=== PATIENT | male | born 1950 | race Caucasian/White ===

== ENCOUNTER → 2017-01-21 | Outpatient (CLI) | payer OTHER, MEDICARE ==
[~2017-01-21] MED LIST: ATOR10TA82 PO; ATV1 PO; PERP1TAB6 PO; PRLSR20 PO; ZYP20 PO
[2017-01-21 09:37] LABS: BASO % 0.8 %; BASO ABS # 0.05 K/uL (0-0.2); COMPLETE YES; EOS % 4.3 %; HEMATOCRIT 42.5 % (42-52); IG% 0.2 %; LYMPH % 28.3 %; LYMPH ABS # 1.84 K/uL (1.2-3.4); MEAN CORPUSCULAR HEMOGLOBIN 30.2 pg (25-34); MEAN CORPUSCULAR HGB CONC 33.2 g/dl (32-36); MEAN PLATELET VOLUME 10.2 fL (7.4-10.4); MONO % 7.4 %; PLATELET COUNT 151 K/uL (130-400); RED BLOOD COUNT 4.67 M/uL (4.7-6.1)
[2017-01-21 10:12] LABS: CALCIUM 9.2 mg/dl (8.5-10.1)
[2017-01-21 10:16] LABS: ESTIMATED AVERAGE GLUCOSE 117 mg/dl; HA1C FLAG Normal (Normal)
[2017-01-21 10:19] LABS: ALT/SGPT 22 U/L (12-78); BLOOD UREA NITROGEN 11 mg/dl (7-18); BUN/CREATININE RATIO 11.9 (10-20); CARBON DIOXIDE 27 mmol/L (21-32); CHLORIDE 108 mmol/L (98-107); CHOLESTEROL 139 mg/dl (0-200); CREATININE 0.91 mg/dl (0.60-1.40); GLUCOSE 98 mg/dl (70-99); POTASSIUM 4.1 mmol/L (3.5-5.1); SODIUM 143 mmol/L (136-145); TRIGLYCERIDES 154 mg/dl (0-150); VERY LOW DENSITY LIPOPROT CALC 31 mg/dl
[2017-01-21 10:29] LABS: ALB/GLOB RATIO 1.3 (0.9-2); ALKALINE PHOSPHATASE 57 U/L (45-117); AST/SGOT 12 U/L (15-37); CHOLESTEROL/HDL RATIO 3.9; HDL CHOLESTEROL 36 mg/dl; LDL CHOLESTEROL CALCULATED 72 mg/dl; THYROID STIMULATING HORMONE 0.916 uIu/ml (0.300-4.500)
== END | disposition home or self-care (01) ==
LOC: C.LAB 08:53
PROVIDERS: ATTEND Internal Medicine
DX: E78.00 Pure hypercholesterolemia, unspecified (principal); F20.0 Paranoid schizophrenia; E55.9 Vitamin D deficiency, unspecified; R73.09 Other abnormal glucose

== ENCOUNTER → 2017-06-13 | Outpatient (CLI) | payer OTHER, MEDICARE ==
[~2017-06-13] MED LIST changes: -ATOR10TA82 PO; +ATOR10TA88 PO
[2017-06-13 09:59] LABS: CHOLESTEROL/HDL RATIO 4.1
[2017-06-13 10:12] LABS: ESTIMATED AVERAGE GLUCOSE 117 mg/dl; HA1C FLAG Normal (Normal)
== END | disposition home or self-care (01) ==
LOC: C.LAB 08:29
PROVIDERS: ATTEND Psychiatry & Neurology Psychiatry
DX: Z51.81 Encounter for therapeutic drug level monitoring (principal); Z79.899 Other long term (current) drug therapy

== ENCOUNTER → 2017-08-19 | Outpatient (CLI) | payer OTHER, MEDICARE ==
[~2017-08-19] MED LIST changes: +ATOR10TA82 PO; -ATOR10TA88 PO
[2017-08-19 10:24] LABS: ALB/GLOB RATIO 1.1 (0.9-2); ALKALINE PHOSPHATASE 63 U/L (45-117); ALT/SGPT 24 U/L (12-78); AST/SGOT 13 U/L (15-37); BLOOD UREA NITROGEN 9 mg/dl (7-18); CALCIUM 9.3 mg/dl (8.5-10.1); CARBON DIOXIDE 29 mmol/L (21-32); CHLORIDE 105 mmol/L (98-107); CREATININE 0.85 mg/dl (0.60-1.40); GLUCOSE 95 mg/dl (70-99); POTASSIUM 4.1 mmol/L (3.5-5.1); SODIUM 137 mmol/L (136-145)
== END | disposition home or self-care (01) ==
LOC: C.LAB 08:19
PROVIDERS: ATTEND Nurse Practitioner
DX: Z12.5 Encounter for screening for malignant neoplasm of prostate (principal); E78.00 Pure hypercholesterolemia, unspecified

== ENCOUNTER → 2018-04-25 | Day surgery (SDC) | payer OTHER, MEDICARE ==
[2018-04-18 13:05] VITALS: Ht 170.2 cm; Wt 95.5 kg
[~2018-04-25] VITALS: Ht 170.2 cm; Wt 95.5 kg
[~2018-04-25] MED LIST changes: +ATOR-22 PO; -ATOR10TA82 PO; +ATV/1 PO; -ATV1 PO; +CHOL20009 PO; +LIDOCAINE HCL 2% 2 ML VIAL (20MG/ML) ONE; +LORA-741 PO; +OLAN1TAB64 PO; -PRLSR20 PO; +PROPOFOL IV EMULSION 10 MG/ML 20 ML VIAL ONE; +SODIUM CHLORIDE 0.9% 500ML 500 ML IV ONE; -ZYP20 PO
--- NOTE | 2018-04-25 09:54 | Endo History and Physical ---
History & Physical Date of Service: Apr 25, 2018. Chief Complaint: F/U polyps Referring Physician: Dr Yanes History of Present Illness 67 yo CM who presents for colonoscopy secondary to colon polyps. Past Surgical History Hx Cardiac Surgery: No Hx Internal Defibrillator: No Hx Pacemaker: No Hx Abdominal Surgery: No Hx of Implantable Prosthesis: No Hx Post-Op Nausea and Vomiting: No Hx Cancer Surgery: No Hx Thoracic Surgery: No Hx Orthopedic: No Hx Urinary Tract Surgery: No Family History Colon CA, Esophogeal CA Social History Smoking Status: Former Smoker Hx Substance Use: No Hx Alcohol Use: No (QUIT 20 YRS AGO) Allergies Coded Allergies: Aspirin (Verified Allergy, Mild, OTHER-HX ULCER, 04/25/18) Current Medications Reported Home Medications Medications Dose Route/Sig Max Daily Dose Days Date Category Vitamin D (Cholecalciferol) 2,000 Unit Tab 1 Tab PO DAILY 04/18/18 Reported Ativan (Lorazepam) 1 Mg Tab 1 Mg PO HS 04/18/18 Reported Lipitor (Atorvastatin Calcium) 20 Mg Tab 20 Mg PO HS 04/18/18 Reported Zyprexa (Olanzapine) 15 Mg Tab 15 Mg PO BID 04/18/18 Reported Ativan (Lorazepam) 0.5 Mg Tab 0.5 Mg PO QAM 04/18/18 Reported Trilafon (Perphenazine) 8 Mg Tab 2 Tablets PO EVERY PM 05/18/12 Reported Trilafon (Perphenazine) 8 Mg Tab 1 Tab PO EVERY AM 05/18/12 Reported Vital Signs Weight (Kilograms): 95.45 Height (Feet): 5 Height (Inches): 7 Date Time Temp Pulse Resp B/P (MAP) Pulse Ox O2 Delivery O2 Flow Rate FiO2 04/25/18 09:13 36.5 68 18 125/70 (88) 98 Room Air Physical Exam General Appearance: WD/WN, no apparent distress Respiratory/Chest: Auscultation: breath sounds normal Cardiovascular: Heart Auscultation: RRR Abdomen: Bowel Sounds: normal Inspection & Palpation: soft, non-distended, no tenderness, guarding & rebound Assessment and Plan Assessment: 67 yo CM who presents for colonoscopy secondary to colon polyps. Plan: Proceed with colonoscopy.
--- NOTE | 2018-04-25 10:42 | GI REPORT ---
Patient Name: Chung Pereira Procedure Date: 04/25/2018 9:45 AM Date of : 1950 Admit Type: Outpatient Age: 67 Gender: Male Attending MD: Dayo Mack DO Procedure: Colonoscopy Providers: Dayo Mack DO Referring MD: Byron Yanes Indications: High risk colon cancer surveillance: Personal history of colonic polyps Medicines: Monitored Anesthesia Care Complications: No immediate complications. Estimated Blood Loss: Estimated blood loss: none. Procedure: Pre-Anesthesia Assessment: - Prior to the procedure, a History and Physical was performed, and patient medications and allergies were reviewed. The patient's tolerance of previous anesthesia was also reviewed. The risks and benefits of the procedure and the sedation options and risks were discussed with the patient. All questions were answered, and informed consent was obtained. Prior Anticoagulants: The patient has taken aspirin, last dose was 1 day prior to procedure. ASA Grade Assessment: II - A patient with mild systemic disease. After reviewing the risks and benefits, the patient was deemed in satisfactory condition to undergo the procedure. After I obtained informed consent, the scope was passed under direct vision. Throughout the procedure, the patient's blood pressure, pulse, and oxygen saturations were monitored continuously. The scope was introduced through the anus and advanced to the terminal ileum. The colonoscopy was performed without difficulty. The patient tolerated the procedure well. The quality of the bowel preparation was good. The terminal ileum, ileocecal valve, appendiceal orifice, and rectum were photographed. Findings: The perianal and digital rectal examinations were normal. Two sessile polyps were found in the sigmoid colon and descending colon. The polyps were 5 to 8 mm in size. These polyps were removed with a hot snare. Resection and retrieval were complete. Multiple small-mouthed diverticula were found in the sigmoid colon. Non-bleeding internal hemorrhoids were found during retroflexion. The hemorrhoids were small. Impression: - Two 5 to 8 mm polyps in the sigmoid colon and in the descending colon, removed with a hot snare. Resected and retrieved. - Diverticulosis in the sigmoid colon. - Non-bleeding internal hemorrhoids. Recommendation: - Resume previous diet. - Continue present medications. - Repeat colonoscopy for surveillance based on pathology results. - Return to primary care physician as previously scheduled. Dayo Mack DO 04/25/2018 10:42:25 AM This report has been signed electronically. Note Initiated On: 04/25/2018 9:45 AM Number of Addenda: 0 I attest to the content of the Intraoperative Record and orders documented therein, exceptions below {[id number]}
--- NOTE | 2018-04-25 10:43 | Discharge Instructions ---
Endoscopy Patient Instructions Date / Procedure(s) Performed Apr 25, 2018. Colonoscopy Allergy Information Coded Allergies: Aspirin (Verified Allergy, Mild, OTHER-HX ULCER, 04/25/18) Discharge Date / Findings Apr 25, 2018. Colon polyps Diverticulosis Internal hemorrhoids Medication Instructions OK to resume all medications today as prescribed Reported Home Medications Medications Dose Route/Sig Max Daily Dose Days Date Category Vitamin D (Cholecalciferol) 2,000 Unit Tab 1 Tab PO DAILY 04/18/18 Reported Ativan (Lorazepam) 1 Mg Tab 1 Mg PO HS 04/18/18 Reported Lipitor (Atorvastatin Calcium) 20 Mg Tab 20 Mg PO HS 04/18/18 Reported Zyprexa (Olanzapine) 15 Mg Tab 15 Mg PO BID 04/18/18 Reported Ativan (Lorazepam) 0.5 Mg Tab 0.5 Mg PO QAM 04/18/18 Reported Trilafon (Perphenazine) 8 Mg Tab 2 Tablets PO EVERY PM 05/18/12 Reported Trilafon (Perphenazine) 8 Mg Tab 1 Tab PO EVERY AM 05/18/12 Reported Provider Instructions Activity Restrictions - No exercising or heavy lifting for 24 hours. - Do not drink alcohol the day of the procedure. - Do not drive a car or operate machinery until the day after the procedure. - Do not make any important decisions or sign important papers in 24 hours after the procedure. Following Day: - Return to full activity which may include returning to work/school. Diet Start your diet with liquids and light foods (jello, soup, juice, toast). Then eat your usual diet if not nauseated. Treatment For Common After Affects For mild abdominal pain, bloating, or excessive gas: - Rest - Eat lightly - Lie on right side Follow-Up Information Follow-up with Dr Yanes as scheduled Anesthesia Information What You Should Know You have had a procedure that required some medicine to reduce anxiety and discomfort. This treatment is called moderate sedation. After receiving the treatment, you may be sleepy, but you will be able to breathe on your own. The effects of the treatment may last for several hours. Follow these instructions along with Activity/Diet recommendations noted above: * Do NOT do anything where dizziness or clumsiness would be dangerous. * Rest quietly at home today, then you can be up and about tomorrow. * Have a responsible person stay with you the rest of today. * You may have had an I.V. today. If so, you may take the dressing off later today. Recommendations Call your doctor if: * Trouble breathing * Continuous vomiting for more than 24 hours * Temperature above 101 degrees * Severe abdominal pain or bloating * Pain not relieved by pain medicine ordered * There is increased drainage or redness from any incision * A large amount of rectal bleeding greater than 2-3 tablespoons. (If you had a polyp/s removed or have hemorrhoids, a small amount of blood - from the rectum is to be expected.) * You have any unanswered questions or concerns. IN THE EVENT OF A SERIOUS EMERGENCY, GO TO THE NEAREST EMERGENCY ROOM Your discharge instructions were prepared by provider Dayo Mack. Patient Instructions Signature Page Chung Pereira Patient (or Guardian) Signature/Date: I have read and understand the instructions given to me by my caregivers. Caregiver/RN/Doctor Signature/Date: The above-named patient and/or guardian has received patient instructions on this date. + Original Patient Signature Page (only) stays with chart. Please make copy for patient.
--- NOTE | 2018-04-25 11:04 | Anesthesiology Progress Note ---
Anesthesia Post Op Note Date & Time Apr 25, 2018 at 11:04 Vital Signs Pain Intensity: 0 Vital Signs Past 12 Hours Date Time Temp Pulse Resp B/P (MAP) Pulse Ox O2 Delivery O2 Flow Rate FiO2 04/25/18 10:51 64 18 150/85 (106) 96 Room Air 04/25/18 10:36 70 18 118/71 (87) 98 Room Air 04/25/18 09:13 36.5 68 18 125/70 (88) 98 Room Air Notes Mental Status: alert / awake / arousable, participated in evaluation Pt Amnestic to Procedure: Yes Nausea / Vomiting: adequately controlled Pain: adequately controlled Airway Patency, RR, SpO2: stable & adequate BP & HR: stable & adequate Hydration State: stable & adequate Anesthetic Complications: no major complications apparent
[2018-04-25 11:06] VITALS: BP 153/73; PULSE 54; O2SAT 96
== END | disposition home or self-care (01) ==
LOC: C.GI 08:28
PROVIDERS: ATTEND Internal Medicine
DX: Z12.11 Encounter for screening for malignant neoplasm of colon (principal); D12.5 Benign neoplasm of sigmoid colon; D12.4 Benign neoplasm of descending colon; Z86.010 Personal history of colon polyps; K57.30 Diverticulosis of large intestine without perforation or abscess without bleeding; K64.8 Other hemorrhoids; F20.9 Schizophrenia, unspecified; E66.9 Obesity, unspecified; Z68.33 Body mass index [BMI] 33.0-33.9, adult; Z88.6 Allergy status to analgesic agent; Z87.891 Personal history of nicotine dependence; Z80.0 Family history of malignant neoplasm of digestive organs

== ENCOUNTER 2019-04-20 16:31 | Inpatient (IN) ==
--- NOTE | 2019-04-20 17:05 | Emergency Department Note ---
History of Present Illness General Chief complaint: Abdominal Pain Stated complaint: RUQ PAIN X 2 DAYS, FEVER 102.3 Time Seen by Provider: 04/20/19 16:40 History of Present Illness Maximum Pain Intensity: 7 68-year-old male who presents to emergency department with a 2-day complaint of right upper quadrant and rib pain. The patient reports that he did have vomiting x1 this morning. He reports that the pain is worse when laying on his right side and with movement. 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 He denies any recent injury to his ribs. He denies chest pain, shortness of breath or pain radiating to the back, neck or shoulder. The patient reports that he did have a small amount of bright red blood in his stools, but also reports a history of hemorrhoids. Patient does have a prior history of peptic ulcer disease possibly 10 years ago. He denies taking any medications for reflux. The patient was seen at the [facility] urgent care center, where he was found to have a fever, and referred to the emergency department for further evaluation. The patient denies any other recent upper respiratory infections, chest pain or reflux. Home Medications Home Medications Medication Instructions Recorded Confirmed Type atorvastatin 20 mg PO QPM 10/16/18 04/20/19 History lorazepam 0.5 mg PO QAM 10/16/18 04/20/19 History lorazepam 1 mg PO HS 10/16/18 04/20/19 History olanzapine 15 mg PO BID 10/16/18 04/20/19 History perphenazine 8 mg PO QAM 10/16/18 04/20/19 History perphenazine 16 mg PO QPM 10/16/18 04/20/19 History aspirin 81 mg tablet,delayed 81 mg PO DAILY tab 02/02/19 04/20/19 History release cholecalciferol (vitamin D3) 2,300 unit PO DAILY 04/20/19 04/20/19 History Allergies Allergy/AdvReac Type Severity Reaction Status Date / Time aspirin AdvReac Mild OTHER-HX Verified 04/20/19 19:12 ULCER Past Med/Surg History Family History Other No pertinent family history Social History Preferred Language: Cuban Communication Ability: Effective 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 Beliefs That Will Affect Care: Yarsanism marital status: Single Current Living Situation: Significant Other Current Living Situation Comment: [facility] current occupational status: employed Other Information That Helps Us Care for You: No Feels Safe at Home: Yes Safety Concerns: Feels Safe At This Time Smoking Status: Former smoker Hx Alcohol Use: Yes (stopped in approx 1999) Hx Substance Use: No Review of Systems 10 system review was performed and was negative except for pertinent positives and negatives as indicated in history of present illness Physical Exam Vital Signs Vital Signs - 24 hr 04/20/19 16:37 04/20/19 17:17 04/20/19 17:18 Temperature 36.8 C Temperature Source Oral Sepsis Recent Fever Within 48 Hours No Sepsis Action Taken by Nursing No Action Required Pulse Rate 87 Pulse Rate [Left Finger] 85 Pulse Rate from SpO2 Sensor Respiratory Rate 18 20 Respiratory Effort / Characteristics Non-Labored Respiratory Depth Normal Normal Respiratory Pattern Regular Blood Pressure 133/70 Blood Pressure [Left Arm] 153/81 H Blood Pressure Mean 91 Blood Pressure Mean [Left Arm] 105 Pulse Oximetry 95 94 93 Oxygen Delivery Method Room Air Room Air Room Air 04/20/19 17:43 04/20/19 18:00 04/20/19 18:30 Temperature Temperature Source Sepsis Recent Fever Within 48 Hours Sepsis Action Taken by Nursing Pulse Rate 85 86 86 Pulse Rate [Left Finger] Pulse Rate from SpO2 Sensor 85 86 86 Respiratory Rate 22 27 H 23 Respiratory Effort / Characteristics Respiratory Depth Respiratory Pattern Blood Pressure 152/89 H 162/75 H Blood Pressure [Left Arm] Blood Pressure Mean 110 104 Blood Pressure Mean [Left Arm] Pulse Oximetry 92 92 94 Oxygen Delivery Method 04/20/19 18:36 04/20/19 19:00 04/20/19 19:30 Temperature Temperature Source Sepsis Recent Fever Within 48 Hours Sepsis Action Taken by Nursing Pulse Rate 85 87 Pulse Rate [Left Finger] 87 Pulse Rate from SpO2 Sensor 85 Respiratory Rate 20 29 H 23 Respiratory Effort / Characteristics Non-Labored Respiratory Depth Normal Respiratory Pattern Regular Blood Pressure 147/77 H 148/76 H Blood Pressure [Left Arm] 162/75 H Blood Pressure Mean 100 100 Blood Pressure Mean [Left Arm] 104 Pulse Oximetry 93 92 Oxygen Delivery Method Room Air CONSTITUTIONAL: Obese male, alert and oriented X 3. She does not appear in any acute distress. HEENT: Normocephalic, atraumatic. Pupils equal, round and reactive. No scleral icterus or conjunctival injection/pallor. No posterior pharyngeal erythema or tonsillar hypertrophy. NECK: Full active range of motion without discomfort. LYMPHATICS: No cervical chain adenopathy. RESPIRATORY: Clear to auscultation bilaterally with no wheezing, crackles, rhonchi or stridor. Deep breathing does not worsen the patient's discomfort. CARDIOVASCULAR: Regular rate and rhythm with no murmurs, rubs or gallops. GASTROINTESTINAL: Bowel sounds present in all quadrants. Patient has mild right upper quadrant tenderness to palpation without rigidity, guarding or rebound. No focal left lower quadrant tenderness or McBurney's point tenderness. Negative CVA tenderness. MUSCULOSKELETAL: Examination shows mild tenderness to palpation over the right inferolateral and anterolateral ribs. No ecchymosis or soft tissue edema noted. No subcutaneous emphysema or flail chest. INTEGUMENTARY: No rash or other significant dermatologic conditions noted. HEMATOLOGIC: No ecchymosis or petechiae. PSYCHIATRIC: Positive affect. NEUROLOGIC: No focal neurologic deficits noted. Course Patient history and physical exam were performed. Nurse's notes were reviewed. Vital signs were reviewed. The patient is currently afebrile. I also reviewed documentation from the [facility] urgent care center where the patient was seen at 3:10 PM, and temperature was 100.1 F, and pulse rate was 96. IV access was established, and labs were drawn. ECG and troponin were normal. Right rib x-rays with a PA chest view does not show any rib fractures, consolidations, pneumothorax or cardiomegaly. CT of the abdomen and pelvis with IV contrast shows evidence for probable gangrenous cholecystitis with no common bile duct dilatation or evidence for choledocholithiasis. I did order for Zosyn 4.5 g IV infusion. The case was further discussed with Dr. Allison, ED attending physician, who evaluated the patient and agrees with surgical consultation. Consultation was placed with Dr. Lynch, general surgeon, who came to the emergency department, evaluated the patient and recommended hospitalist admission for presurgical clearance. I did further discuss the case with Dr. Szymanski, [facility] hospitalist, who recommended drawing a [id number] lactate to make certain that the patient is not septic. Point of care lactate was normal. Administered Medications Sodium Chloride (Nss 1000ml) 1,000 mls @ 125 mls/hr IV .Q8H TAWANA Stop: 05/20/19 20:34 Last Admin: 04/20/19 20:42 Dose: 125 mls/hr Documented by: [id number] Famotidine 20 mg/ Syringe 5 mls @ 2.5 mls/min IV BID TAWANA Stop: 05/20/19 20:59 Last Admin: 04/20/19 22:28 Dose: 2.5 mls/min Documented by: [id number] Olanzapine (Zyprexa) 15 mg PO BID TAWANA Stop: 05/20/19 20:59 Last Admin: 04/20/19 22:29 Dose: 15 mg Documented by: [id number] Ondansetron HCl (Zofran) 4 mg IV Q6H PRN PRN Reason: Nausea Stop: 05/20/19 20:34 Last Admin: 04/20/19 22:39 Dose: 4 mg Documented by: [id number] Perphenazine (Trilafon) 16 mg PO QPM TAWANA Stop: 05/20/19 20:59 Last Admin: 04/20/19 22:30 Dose: 16 mg Documented by: [id number] Discontinued Medications Piperacillin Sod/Tazobactam Sod (Zosyn) 4.5 gm in 120 mls @ 240 mls/hr IV NOW ONE Stop: 04/20/19 19:36 Last Infusion: 04/20/19 20:36 Dose: 0 mls/hr Documented by: [id number] Admin: 04/20/19 19:49 Dose: 240 mls/hr Documented by: [id number] Ioversol (Optiray 320 100ml) 93 ml IV ONCE PRN PRN Reason: Interaction Checking Stop: 04/24/19 18:15 Last Admin: 04/20/19 18:16 Dose: 93 ml Documented by: [id number] Medical Decision Making Medical Records Attestation: I reviewed the patient's medical records. Home Medications Current Medication List: was personally reviewed by me Laboratory Data Attestation: I reviewed the patient's lab results. Result diagrams: 04/20/19 17:02 04/20/19 17:02 Lab Results 04/20/19 04/20/19 04/20/19 Range/Units 17:02 17:02 17:02 WBC 17.17 H (4.8-10.8) K/uL RBC 4.41 L (4.7-6.1) M/uL Hgb 13.9 L (14.0-18.0) g/dL Hct 40.4 L (42-52) % MCV 91.6 (80-100) fL MCH 31.5 (25-34) pg MCHC 34.4 (32-36) g/dL RDW Std Deviation 43.2 (36.4-46.3) fL RDW Coeff of Larissa 12.8 (11.5-14.5) % Plt Count 140 (130-400) K/uL MPV 10.3 (7.4-10.4) fL Immature Gran % (Auto) 0.3 % Neut % (Auto) 80.6 % Lymph % (Auto) 8.8 % [place] % (Auto) 10.1 % Eos % (Auto) 0.1 % Baso % (Auto) 0.1 % Immature Gran # (Auto) 0.06 H (0.00-0.02) K/uL Neut # (Auto) 13.84 H (1.4-6.5) K/uL Lymph # (Auto) 1.51 (1.2-3.4) K/uL [place] # (Auto) 1.73 H (0.11-0.59) K/uL Eos # (Auto) 0.01 (0-0.5) K/uL Baso # (Auto) 0.02 (0-0.2) K/uL ESR 44 H (0-14) mm/hr Sodium 136 (136-145) mmol/L Potassium 3.6 (3.5-5.1) mmol/L Chloride 101 (98-107) mmol/L Carbon Dioxide 29 (21-32) mmol/L Anion Gap 6.0 (3-11) BUN 14 (7-18) mg/dl Creatinine 1.08 (0.6-1.4) mg/dl Est Cr Clr Drug Dosing Not Reportable Est GFR ( Amer) 80.7 Est GFR (Non-Af Amer) 69.7 BUN/Creatinine Ratio 12.9 (10-20) Glucose 108 H (70-99) mg/dl POC Lactic Acid Jani (0.90-1.70) mmol/L Calcium 8.9 (8.5-10.1) mg/dl Total Bilirubin 1.1 H (0.2-1) mg/dl AST 25 (15-37) U/L ALT 21 (12-78) U/L Alkaline Phosphatase 48 (45-117) U/L Troponin I < 0.015 (0-0.045) ng/ml C-Reactive Protein 20.90 H (0-0.29) mg/dl Total Protein 7.4 (6.4-8.2) gm/dl Albumin 3.8 (3.4-5.0) gm/dl Globulin 3.6 (2.5-4.0) gm/dl Albumin/Globulin Ratio 1.1 (0.9-2) Lipase 77 (73-393) U/L Hepatitis C Ab Screen (Neg) 04/20/19 04/20/19 Range/Units 17:02 19:36 WBC (4.8-10.8) K/uL RBC (4.7-6.1) M/uL Hgb (14.0-18.0) g/dL Hct (42-52) % MCV (80-100) fL MCH (25-34) pg MCHC (32-36) g/dL RDW Std Deviation (36.4-46.3) fL RDW Coeff of Larissa (11.5-14.5) % Plt Count (130-400) K/uL MPV (7.4-10.4) fL Immature Gran % (Auto) % Neut % (Auto) % Lymph % (Auto) % [place] % (Auto) % Eos % (Auto) % Baso % (Auto) % Immature Gran # (Auto) (0.00-0.02) K/uL Neut # (Auto) (1.4-6.5) K/uL Lymph # (Auto) (1.2-3.4) K/uL [place] # (Auto) (0.11-0.59) K/uL Eos # (Auto) (0-0.5) K/uL Baso # (Auto) (0-0.2) K/uL ESR (0-14) mm/hr Sodium (136-145) mmol/L Potassium (3.5-5.1) mmol/L Chloride (98-107) mmol/L Carbon Dioxide (21-32) mmol/L Anion Gap (3-11) BUN (7-18) mg/dl Creatinine (0.6-1.4) mg/dl Est Cr Clr Drug Dosing Est GFR ( Amer) Est GFR (Non-Af Amer) BUN/Creatinine Ratio (10-20) Glucose (70-99) mg/dl POC Lactic Acid Jani 1.08 (0.90-1.70) mmol/L Calcium (8.5-10.1) mg/dl Total Bilirubin (0.2-1) mg/dl AST (15-37) U/L ALT (12-78) U/L Alkaline Phosphatase (45-117) U/L Troponin I (0-0.045) ng/ml C-Reactive Protein (0-0.29) mg/dl Total Protein (6.4-8.2) gm/dl Albumin (3.4-5.0) gm/dl Globulin (2.5-4.0) gm/dl Albumin/Globulin Ratio (0.9-2) Lipase (73-393) U/L Hepatitis C Ab Screen Neg (Neg) Imaging Data Attestation: I personally reviewed and interpreted this imaging study as follows: My Impression: My interpretation of right rib x-rays with a PA chest view does not show any obvious rib fractures, dependent edema, pneumothorax or cardiomegaly. Gallbladder ultrasound shows evidence for a gangrenous cholecystitis. Radiologist reports were reviewed. Radiologist's Impression: ABDOMEN AND PELVIS CT WITH IV CONTRAST CT DOSE: 1907.96 mGy.cm HISTORY: Generalized abdominal pain with right-sided rib pain Abd pain/R rib pain TECHNIQUE: Multiaxial CT images of the abdomen and pelvis were performed following the use of intravenous contrast. A dose lowering technique was utilized adhering to the principles of ALARA. COMPARISON STUDY: Chest radiograph with rib series of same day. FINDINGS: Minimal subsegmental bibasilar atelectasis. No pneumatosis or pneumo peritoneum. Imaged inferior cardiac chambers are mildly enlarged. Coronary arterial calcifications are noted. Spleen, liver and adrenal glands are unremarkable. There is an ovoid circumscribed water attenuating 1.3 cm lesion noted about the pancreatic head, image 149 series 5. Mild gallbladder distention with cholelithiasis. Foci of air noted within the gallbladder lumen with associated gallbladder wall thickening. No biliary ductal dilation or choledocholithiasis identified. Inflammatory stranding with trace edema noted about the sin hepatis. Calculi noted about the cystic duct. Mild nonspecific bilateral perinephric stranding. Exophytic 4.0 cm cyst of the inferior pole right kidney. No renal or ureteral calculi or obstructive uropathy. Prominent prostate. Mild urinary bladder wall thickening and perivesicular stranding. Moderate calcified plaque of the abdominal aorta without aneurysm. No adenopathy. Small hiatal hernia. Circumferential wall thickening about the gastric antrum, pylorus and proximal duodenum with mucosal hyperemia. Inflammatory stranding with trace edema. Mildly prominent periportal lymph nodes. Mild colonic ecchymosis without acute diverticulitis. Soft tissues are unremarkable. Bones appear intact. Degenerative changes of the spine, pelvis and hips. IMPRESSION: 1. Cholelithiasis with gallbladder wall distention and stones noted within the cystic duct. Pericholecystic inflammatory stranding is also noted with foci of air within the gallbladder lumen. Findings are suggestive of gangrenous acute cholecystitis. Surgical consultation recommended. 2. Wall thickening with mucosal hyperemia of the distal stomach and duodenum is likely reactive. Primary duodenitis/peptic ulcer disease considered less likely. 3. No choledocholithiasis. 4. Additional findings as above. ECG Data Attestation: I personally reviewed and interpreted this ECG as follows: Indication: abdominal pain Rhythm: normal sinus Comparison ECG Date: from (10/16/2018) Change: no significant change Blood Pressure Blood Pressure Findings: Elevated blood pressure MDM Narrative Patient presents to the emergency department with a 2-day history of right upper quadrant pain. CT scan does show evidence for gangrenous cholecystitis. The patient was febrile at the [facility] urgent care [facility], but has been afebrile while in the emergency department. The patient is not hypotensive or tachycardic. Chest x-ray does not show evidence for lung consolidations, and or rib fractures. ECG and troponin were normal, and is not suggestive of other acute cardiopulmonary etiologies. Impression & Plan Acute gangrenous cholecystitis Discharge Plan Visit Data *Final* Discharge Date/Time: 04/20/19 20:05 Chief Complaint: Abdominal Pain Stated Complaint: RUQ PAIN X 2 DAYS, FEVER 102.3 ED Provider: Marciano Allison ED Midlevel Provider: Mele Finney Discharge Problem: Acute gangrenous cholecystitis Patient Disposition: Admitted As Inpatient Discharge Instructions Interventions: ED Discharge Assessment Last Done: 04/20/19 20:05
[2019-04-20 17:34] LABS: Alanine Aminotransferase 21 U/L (12-78); Albumin Level 3.8 gm/dl (3.4-5.0); Aspartate Aminotransferase 25 U/L (15-37); BUN Creatinine Ratio 12.9 (10-20); Blood Urea Nitrogen 14 mg/dl (7-18); Calcium 8.9 mg/dl (8.5-10.1); Carbon Dioxide 29 mmol/L (21-32); Chloride 101 mmol/L (98-107); Est GFR (African American) 80.7; Est GFR (Non-African American) 69.7; Glucose 108 mg/dl (70-99); Potassium 3.6 mmol/L (3.5-5.1); Sodium 136 mmol/L (136-145)
[2019-04-20 17:40] LABS: Albumin Globulin Ratio 1.1 (0.9-2); Alkaline Phosphatase 48 U/L (45-117); Bilirubin,Total 1.1 mg/dl (0.2-1); Globulin 3.6 gm/dl (2.5-4.0); Total Protein 7.4 gm/dl (6.4-8.2); Troponin I < 0.015 ng/ml (0-0.045)
[2019-04-20 17:44] LABS: Basophils # (auto) 0.02 K/uL (0-0.2); Basophils % (auto) 0.1 %; Eosinophils # (auto) 0.01 K/uL (0-0.5); Eosinophils % (auto) 0.1 %; Hematocrit (blood only) 40.4 % (42-52); Hemoglobin 13.9 g/dL (14.0-18.0); Immature Granulocytes # (auto) 0.06 K/uL (0.00-0.02); Immature Granulocytes % (auto) 0.3 %; Lymphocytes # (auto) 1.51 K/uL (1.2-3.4); Lymphocytes % (auto) 8.8 %; Mean Corpuscular Hgb Conc 34.4 g/dL (32-36); Mean Corpuscular Volume 91.6 fL (80-100); Mean Platelet Volume 10.3 fL (7.4-10.4); Monocytes # (auto) 1.73 K/uL (0.11-0.59); Monocytes % (auto) 10.1 %; Neutrophils # (auto) 13.84 K/uL (1.4-6.5); Neutrophils % (auto) 80.6 %; Platelet Count 140 K/uL (130-400); RDW Coefficient of Variation 12.8 % (11.5-14.5); RDW Standard Deviation 43.2 fL (36.4-46.3); Red Blood Count 4.41 M/uL (4.7-6.1); White Blood Count 17.17 K/uL (4.8-10.8)
--- NOTE | 2019-04-20 17:53 | XRay Report ---
XR ribs RT min 3V w CXR1V HISTORY: 68 years-old Male R rib pain lateral right sided rib pain COMPARISON: Chest radiograph 10/16/2018 TECHNIQUE: PA view of the chest with multiple views of the right ribs FINDINGS: Cardiac silhouette is enlarged, unchanged. Calcification of the thoracic aortic arch. Unchanged mild right hemidiaphragm elevation without pneumothorax, pleural effusion or overt pulmonary edema. Degene rative changes of the shoulders and spine. No acute displaced rib fracture identified. Moderate forme d stool noted throughout the imaged colon. IMPRESSION: 1. No acute processes of the chest. 2. No acute rib fracture or pneumothorax identified. The above report was generated using voice recognition software. It may contain grammatical, syntax o r spelling errors. Electronically signed by: Siddhartha Sanchez M.D. 04/20/2019 5:52 PM
[2019-04-20] MEDS ORDERED: IOVERSOL 100ml IV PRN (18:16)
--- NOTE | 2019-04-20 19:00 | CT Scan Report ---
ABDOMEN AND PELVIS CT WITH IV CONTRAST CT DOSE: 1907.96 mGy.cm HISTORY: Generalized abdominal pain with right-sided rib pain Abd pain/R rib pain TECHNIQUE: Multiaxial CT images of the abdomen and pelvis were performed following the use of intrave nous contrast. A dose lowering technique was utilized adhering to the principles of ALARA. COMPARISON STUDY: Chest radiograph with rib series of same day. FINDINGS: Minimal subsegmental bibasilar atelectasis. No pneumatosis or pneumoperitoneum. Imaged infe rior cardiac chambers are mildly enlarged. Coronary arterial calcifications are noted. Spleen, liver and adrenal glands are unremarkable. There is an ovoid circumscribed water attenuating 1.3 cm lesion noted about the pancreatic head, image 149 series 5. Mild gallbladder distention with cholelithiasis. Foci of air noted within the gallbladder lumen with associated gallbladder wall thickening. No bilia ry ductal dilation or choledocholithiasis identified. Inflammatory stranding with trace edema noted a bout the sin hepatis. Calculi noted about the cystic duct. Mild nonspecific bilateral perinephric stranding. Exophytic 4.0 cm cyst of the inferior pole right ki dney. No renal or ureteral calculi or obstructive uropathy. Prominent prostate. Mild urinary bladder wall thickening and perivesicular stranding. Moderate calcified plaque of the abdominal aorta without aneurysm. No adenopathy. Small hiatal hernia. Circumferential wall thickening about the gastric antr um, pylorus and proximal duodenum with mucosal hyperemia. Inflammatory stranding with trace edema. Mi ldly prominent periportal lymph nodes. Mild colonic ecchymosis without acute diverticulitis. Soft tis sues are unremarkable. Bones appear intact. Degenerative changes of the spine, pelvis and hips. IMPRESSION: 1. Cholelithiasis with gallbladder wall distention and stones noted within the cystic duct. Perichole cystic inflammatory stranding is also noted with foci of air within the gallbladder lumen. Findings a re suggestive of gangrenous acute cholecystitis. Surgical consultation recommended. 2. Wall thickening with mucosal hyperemia of the distal stomach and duodenum is likely reactive. Prim diana duodenitis/peptic ulcer disease considered less likely. 3. No choledocholithiasis. 4. Additional findings as above. Electronically signed by: Siddhartha Sanchez M.D. 04/20/2019 6:59 PM
[2019-04-20] MEDS ORDERED: PIPERACILLIN/TAZOBACTAM 4.5 GM/120 ML BAG IV ONE (19:07)
[2019-04-20] MEDS ORDERED: PIPERACILL/TAZOBAC CONSULT ACTIVE PRN ×2 (19:07→20:35)
--- NOTE | 2019-04-20 19:09 | Emergency Department Note ---
ED Visit Note Patient was seen by our PA/FIBRE COMPOSITE TECHNICIAN. I was involved in the patient's care and did evaluate the patient myself. I was involved in the care throughout the ER stay. The patient presents with abdominal pain. Work-up does suggest acute cholecystitis, in fact, possibly gangrenous cholecystitis. Patient does have an elevation to his white blood cell count. His blood pressure is adequate. The surgeon and medical team have been consulted. Hospitalization is warranted. .
--- NOTE | 2019-04-20 19:42 | Surgery Consultation ---
Date of Consultation April 20, 2019 Assessment & Plan (1) Acute gangrenous cholecystitis: 68-year-old male with acute gangrenous cholecystitis. Admit to medicine Plan for laparoscopic cholecystectomy, possible cholangiogram, possible open tomorrow The risks of the procedure were discussed to include but not limited to bleeding, infection, conversion to open, damage to surrounding structures including common bile duct, retained stone, bile leak, need for future more extensive surgery, and the risks of anesthesia N.p.o., IV antibiotics, IV fluid Present on Admission?: Yes (2) Carotid artery stenosis: (3) Gastroesophageal reflux disease: (4) Hypercholesterolemia: (5) Paranoid schizophrenia: History of Present Illness History of Present Illness 68-year-old male presents to the emergency department with several day history of right upper quadrant abdominal pain. He was seen in urgent care today and had a low-grade fever and was referred to the emergency department. He has an elevated white blood cell count of 17,[address] scan that suggests cholecystitis with possible gangrenous cholecystitis. He reports a history of a gastric ulcer in the past secondary to aspirin use. He has a history of well- controlled paranoid schizophrenia and is not on any blood thinning medications at this time. Allergies Allergy/AdvReac Type Severity Reaction Status Date / Time aspirin AdvReac Mild OTHER-HX Verified 04/20/19 19:12 [facility] Home Medications Home Medications Medication Instructions Recorded Confirmed Type atorvastatin 20 mg PO QPM 10/16/18 04/20/19 History lorazepam 0.5 mg PO QAM 10/16/18 04/20/19 History lorazepam 1 mg PO HS 10/16/18 04/20/19 History olanzapine 15 mg PO BID 10/16/18 04/20/19 History perphenazine 8 mg PO QAM 10/16/18 04/20/19 History perphenazine 16 mg PO QPM 10/16/18 04/20/19 History aspirin 81 mg tablet,delayed 81 mg PO DAILY tab 02/02/19 04/20/19 History release cholecalciferol (vitamin D3) 2,300 unit PO DAILY 04/20/19 04/20/19 History Patient History Medical History Abnormal glucose (Acute) Achilles tendon sprain (Acute) Benign neoplasm of large intestine (Acute) Carotid artery stenosis (Acute) Gastroesophageal reflux disease (Acute) Hypercholesterolemia (Acute) Paranoid schizophrenia (Acute) Vitamin D deficiency (Acute) Neck abscess (Acute) Heart murmur (Acute) HLD (hyperlipidemia) (Chronic) Family History Other No pertinent family history Social History marital status: Single Current Living Situation: Alone current occupational status: employed Feels Safe at Home: Yes Smoking Status: Never smoker Review of Systems Review of Systems: All systems reviewed & are unremarkable except as noted in HPI & below Physical Exam Constitutional: WD/WN, vitals as above Eyes: PERRL, conjunctivae normal, anicteric sclerae ENMT: external ear and nose normal, oropharynx normal Neck: trachea midline, no thyromegaly Respiratory: normal respiratory effort, lungs clear to auscultation Cardiovascular: RRR, no murmur, no edema Gastrointestinal (Abdomen): Percussion/Palpation: + abdomen tender (Tender to palpation in right upper quadrant, positive Teixeira sign) and abdomen soft; no hepatosplenomegaly, no hernia and no abdominal mass Musculoskeletal: no cyanosis or clubbing, extremities motor strength 5/5 Skin: no rashes, warm and dry Neurologic: PERRL, EOMI, accommodation nl, no face palsy, no dysarthria Psychiatric: A+Ox3, euthymic affect Lymphatic: no cervical or axillary lymphadenopathy Results & Data Vital Signs (Past 12 Hours) Vital Signs Temp Pulse Pulse Resp BP BP Pulse Ox 04/20/19 18:36 87 20 162/75 H 93 04/20/19 17:18 85 20 153/81 H 93 04/20/19 17:17 94 04/20/19 16:37 36.8 C 87 18 133/70 95 Laboratory Results Laboratory Results - last 24 hr 04/20/19 04/20/19 04/20/19 17:02 17:02 17:02 WBC 17.17 H RBC 4.41 L Hgb 13.9 L Hct 40.4 L MCV 91.6 MCH 31.5 MCHC 34.4 RDW Std Deviation 43.2 RDW Coeff of Larissa 12.8 Plt Count 140 MPV 10.3 Immature Gran % (Auto) 0.3 Neut % (Auto) 80.6 Lymph % (Auto) 8.8 Throckmorton % (Auto) 10.1 Eos % (Auto) 0.1 Baso % (Auto) 0.1 Immature Gran # (Auto) 0.06 H Neut # (Auto) 13.84 H Lymph # (Auto) 1.51 Throckmorton # (Auto) 1.73 H Eos # (Auto) 0.01 Baso # (Auto) 0.02 ESR 44 H Sodium 136 Potassium 3.6 Chloride 101 Carbon Dioxide 29 Anion Gap 6.0 BUN 14 Creatinine 1.08 Est Cr Clr Drug Dosing Not Reportable Est GFR ( Amer) 80.7 Est GFR (Non-Af Amer) 69.7 BUN/Creatinine Ratio 12.9 Glucose 108 H Calcium 8.9 Total Bilirubin 1.1 H AST 25 ALT 21 Alkaline Phosphatase 48 Troponin I < 0.015 C-Reactive Protein 20.90 H Total Protein 7.4 Albumin 3.8 Globulin 3.6 Albumin/Globulin Ratio 1.1 Lipase 77 Diagnostic Findings ABDOMEN AND PELVIS CT WITH IV CONTRAST CT DOSE: 1907.96 mGy.cm HISTORY: Generalized abdominal pain with right-sided rib pain Abd pain/R rib pain TECHNIQUE: Multiaxial CT images of the abdomen and pelvis were performed following the use of intravenous contrast. A dose lowering technique was utilized adhering to the principles of ALARA. COMPARISON STUDY: Chest radiograph with rib series of same day. FINDINGS: Minimal subsegmental bibasilar atelectasis. No pneumatosis or pneumoperitoneum. Imaged inferior cardiac chambers are mildly enlarged. Coronary arterial calcifications are noted. Spleen, liver and adrenal glands are unremarkable. There is an ovoid circumscribed water attenuating 1.3 cm lesion noted about the pancreatic head, image 149 series 5. Mild gallbladder distention with cholelithiasis. Foci of air noted within the gallbladder lumen with associated gallbladder wall thickening. No biliary ductal dilation or choledocholithiasis identified. Inflammatory stranding with trace edema noted about the sin hepatis. Calculi noted about the cystic duct. Mild nonspecific bilateral perinephric stranding. Exophytic 4.0 cm cyst of the inferior pole right kidney. No renal or ureteral calculi or obstructive uropathy. Prominent prostate. Mild urinary bladder wall thickening and perivesicular stranding. Moderate calcified plaque of the abdominal aorta without aneurysm. No adenopathy. Small hiatal hernia. Circumferential wall thickening about the gastric antrum, pylorus and proximal duodenum with mucosal hyperemia. Inflammatory stranding with trace edema. Mildly prominent periportal lymph nodes. Mild colonic ecchymosis without acute diverticulitis. Soft tissues are unremarkable. Bones appear intact. Degenerative changes of the spine, pelvis and hips. IMPRESSION: 1. Cholelithiasis with gallbladder wall distention and stones noted within the cystic duct. Pericholecystic inflammatory stranding is also noted with foci of air within the gallbladder lumen. Findings are suggestive of gangrenous acute cholecystitis. Surgical consultation recommended. 2. Wall thickening with mucosal hyperemia of the distal stomach and duodenum is likely reactive. Primary duodenitis/peptic ulcer disease considered less likely. 3. No choledocholithiasis. 4. Additional findings as above. PG Care Time/CCT Total # of Minutes Spent Total Time Spent with Patient: Total time spent is greater than 50% in coordination of care (as documented) at patient's floor/unit and/or counseling patient:
--- NOTE | 2019-04-20 19:46 | History & Physical Report ---
Date of Service April 20, 2019 Assessment & Plan (1) Acute gangrenous cholecystitis: Patient is what appears to be acute cholecystitis on CT imaging surgery has evaluated the patient in the ER and wishes to proceed with intravenous antibiotics and surgical intervention on 04/21. Patient be placed on Zosyn therapy pain antiemetics and IV fluids incidentally his lactic acid [id number] was unremarkable. Patient's EKG shows normal sinus rhythm he is an acceptable cardiac risk for interventional surgery (2) Abnormal glucose: Patient states he watches his diet but is on any medications to control his glucose perhaps his abnormal glucose is associated with his antipsychotic medications (3) Gastroesophageal reflux disease: Patient will be on intravenous Pepcid for his history of GERD (4) Paranoid schizophrenia: Patient schizophrenia is been challenging in the past to control he will continue on his olanzapine and perphenazine but his lorazepam will be changed to intravenous dosing (5) Hypercholesterolemia: Atorvastatin is typical for him and will be on hold as well as his aspirin History of Present Illness Primary Care Provider: Byron Yanes MD This 68-year-old paranoid schizophrenic male presents with 2 days of right upper quadrant pain he actually thought he injured his ribs. He is also had preceding hospital constipation and some mild nausea without vomiting. He is found to be febrile on presentation and CT scan confirms concern for gangrenous cholecystitis. He seen by surgical consultation in the emergency department who recommends intravenous antibiotics and possible taken to the OR on 04/21/2019 Patient was quizzed about his prehospital state before he was feeling ill he said no chest pain or pressure he has no dyspnea on exertion he can lay flat in bed he said no bleeding or bruising problems in the past he said no issues with anesthesia. Patient was concerned of his mental health medications as he feels his take a long time to get them adjusted where he needs him to be therefore we will give him his medications in the morning with a small sip of water preoperatively Allergies Allergy/AdvReac Type Severity Reaction Status Date / Time aspirin AdvReac Mild OTHER-HX Verified 04/20/19 19:12 [facility] Home Medications Home Medications Medication Instructions Recorded Confirmed Type atorvastatin 20 mg PO QPM 10/16/18 04/20/19 History lorazepam 0.5 mg PO QAM 10/16/18 04/20/19 History lorazepam 1 mg PO HS 10/16/18 04/20/19 History olanzapine 15 mg PO BID 10/16/18 04/20/19 History perphenazine 8 mg PO QAM 10/16/18 04/20/19 History perphenazine 16 mg PO QPM 10/16/18 04/20/19 History aspirin 81 mg tablet,delayed 81 mg PO DAILY tab 02/02/19 04/20/19 History release cholecalciferol (vitamin D3) 2,300 unit PO DAILY 04/20/19 04/20/19 History oxycodone-acetaminophen [Percocet] 1 - 2 tab PO Q4H PRN #15 tab 04/21/19 Rx Past Med/Surg History Medical History Abnormal glucose (Acute) Achilles tendon sprain (Acute) Benign neoplasm of large intestine (Acute) Carotid artery stenosis (Acute) Gastroesophageal reflux disease (Acute) Hypercholesterolemia (Acute) Paranoid schizophrenia (Acute) Vitamin D deficiency (Acute) Neck abscess (Acute) Heart murmur (Acute) HLD (hyperlipidemia) (Chronic) Family History Other No pertinent family history Social History Preferred Language: Portuguese Communication Ability: Effective [employer] Internship Required: No Beliefs That Will Affect Care: Syn[employer] marital status: Single Current Living Situation: Significant Other Current Living Situation Comment: [facility] current occupational status: employed Other Information That Helps Us Care for You: No Feels Safe at Home: Yes Safety Concerns: Feels Safe At This Time Smoking Status: Former smoker Hx Alcohol Use: Yes (stopped in approx 1999) Hx Substance Use: No Review of Systems Review of Systems: ROS: well nourished well developed. No double vision blurry vision No problems with speech or swallowing No palpitations or pressure, patient is right rib cage pain which is likely r adiation from his gallbladder No Wheezing or breathing issues Right upper quadrant abdominal pain associated with nausea but no vomiting constipation No burning urine urine frequency or changes in color No focal joint pain or muscle pain No skin rashes or oral lesions No unusual bruising or bleeding No focused back pain or numbness or loss of strength No changes in memory or confusion Physical Exam Physical Exam: The patient appeared well nourished and normally developed. Vital signs as documented. Head exam is unremarkable. normocephalic, atraumatic Neck is without jugular venous distension, thyromegaly, or lymphademopathy Lungs are clear to auscultation and percussion. Cardiac exam reveals Rhythm is regular. Her murmur is listed but I hear no murmur Abdominal exam reveals active bowel sounds right upper quadrant tenderness no guarding no rebound slight distention Extremities are nonedematous and both pedal pulses are present Neurologic exam is A&Ox3, no focal deficits, strength is equal bilateral Psychologically seems neither anxious or depressed Skin is warm Dry with seborrheic dermatitis on his face and his reddy Results & Data Vital Signs (Past 12 Hours) Vital Signs Temp Pulse Pulse Resp BP BP Pulse Ox 04/20/19 18:36 87 20 162/75 H 93 04/20/19 17:18 85 20 153/81 H 93 04/20/19 17:17 94 04/20/19 16:37 36.8 C 87 18 133/[address] abd/pelvis 1. Cholelithiasis with gallbladder wall distention and stones noted within the cystic duct. Pericholecystic inflammatory stranding is also noted with foci of air within the gallbladder lumen. Findings are suggestive of gangrenous acute cholecystitis. Surgical consultation recommended. 2. Wall thickening with mucosal hyperemia of the distal stomach and duodenum is likely reactive. Primary duodenitis/peptic ulcer disease considered less likely. 3. No choledocholithiasis PG Care Time/CCT Total # of Minutes Spent Total Time Spent with Patient: Total time spent is greater than 50% in coordination of care (as documented) at patient's floor/unit and/or counseling patient:
[2019-04-20] MEDS ORDERED: LORazepam 0.5 MG/1 ML VIAL IV PRN (20:35)
[2019-04-20] MEDS ORDERED: ONDANSETRON INJ 2 MG/ML 2 ML VIAL IV PRN (20:35)
[2019-04-20] MEDS ORDERED: MoRPHine SULFATE 4 MG/ML 1 ML CARP\\VIAL IV PRN (20:35)
[2019-04-20] MEDS ORDERED: MoRPHine SULFATE 2 MG/ML CARP IV PRN (20:35)
[2019-04-20] MEDS: SODIUM CHLORIDE 0.9% 1000ML 1,000 ML IV SCH (20:42)
[2019-04-20 21:57] LABS: Appearance Urine Clear (Clear); Bacteria Urine Automated Negative (Negative); Bilirubin Urine Negative (Negative); Blood Urine Negative (Negative); Color Urine Yellow; Glucose Urine UA Negative (Negative); Ketones Urine Trace (Negative); Leukocyte Esterase Urine Negative (Negative); Nitrite Urine Negative (Negative); Protein Urine 1+ (Negative); RBC Urine Automated 0-4 /hpf (0-4); Specific Gravity Urine > 1.045 (1.000-1.030); Urobilinogen Urine Negative (Negative)
[2019-04-20] MEDS: FAMOTIDINE 20 MG in SYRINGE 3 ML IV SCH (22:28)
[2019-04-20] MEDS: OLANZapine 5 MG TABLET PO SCH (22:29)
[2019-04-20] MEDS: PERPHENAZINE 2 MG TABLET PO SCH (22:30)
[2019-04-21] MEDS: PIPERACILLIN/TAZOBACTAM 4.5 GM in DEXTROSE 5% 100 ML IV SCH ×3 (02:51→18:11)
[2019-04-21] MEDS: SODIUM CHLORIDE 0.9% 1000ML 1,000 ML IV SCH ×2 (02:55→12:28)
--- NOTE | 2019-04-21 06:38 | Anesthesiology Consultation ---
Date of Service April 21, 2019 Assessment & Plan (1) Encounter for pre-operative examination: Chart Review Chart Review: Acceptable Risk for Surgery and Patient NOT seen in Pre Admission Testing Consults Requested none ASA ASA3 Proposed Anesthesia Anesthesia Type: General Risk / Benefits Reviewed With: PT / POA / Parent / Guardian, Accepts Plan and I nformed Consent Obtained History Surgery Operation Date: 04/21/19 10:30 Proposed Procedures p Laparoscopic Cholecystectomy - David Lynch DO, FACS Height/Weight Height: 5 ft 7 in Weight: 96.9 kg Allergies Allergy/AdvReac Type Severity Reaction Status Date / Time aspirin AdvReac Mild OTHER-HX Verified 04/20/19 19:12 [facility] Medications Home Medications Medication Instructions Recorded Confirmed Last Taken atorvastatin 20 mg PO QPM 10/16/18 04/20/19 Unknown lorazepam 0.5 mg PO QAM 10/16/18 04/20/19 Unknown lorazepam 1 mg PO HS 10/16/18 04/20/19 Unknown olanzapine 15 mg PO BID 10/16/18 04/20/19 Unknown perphenazine 8 mg PO QAM 10/16/18 04/20/19 Unknown perphenazine 16 mg PO QPM 10/16/18 04/20/19 Unknown aspirin 81 mg tablet,delayed 81 mg PO DAILY tab 02/02/19 04/20/19 Unknown release cholecalciferol (vitamin D3) 2,300 unit PO DAILY 04/20/19 04/20/19 Unknown oxycodone-acetaminophen [Percocet] 1 - 2 tab PO Q4H PRN #15 tab 04/21/19 Unknown Active Medications Generic Name Dose Route Start Last Admin Trade Name Freq PRN Reason Stop Dose Admin Sodium Chloride 1,000 mls @ 125 mls/hr 04/20/19 20:35 04/21/19 02:55 Nss 1000ml IV 05/20/19 20:34 125 mls/hr .Q8H TAWANA Administration Famotidine 20 mg/ Syringe 5 mls @ 2.5 mls/min 04/20/19 21:00 04/20/19 22:28 IV 05/20/19 20:59 2.5 mls/min BID TAWANA Administration Piperacillin Sod/Tazobactam 120 mls @ 30 mls/hr 04/21/19 02:00 04/21/19 06:51 Sod 4.5 gm/ Dextrose IV 05/01/19 01:59 Infused Q8H TAWANA Infusion Protocol Olanzapine 15 mg 04/20/19 21:00 04/21/19 07:56 Zyprexa PO 05/20/19 20:59 15 mg BID TAWANA Administration Ondansetron HCl 4 mg 04/20/19 20:35 04/20/19 22:39 Zofran IV 05/20/19 20:34 4 mg Q6H PRN Administration Nausea Perphenazine 8 mg 04/21/19 09:00 04/21/19 07:56 Trilafon PO 05/21/19 08:59 8 mg QAM TAWANA Administration Perphenazine 16 mg 04/20/19 21:00 04/20/19 22:30 Trilafon PO 05/20/19 20:59 16 mg QPM TAWANA Administration NPO Date Last Intake of Fluids: 04/21/19 Time Last Intake of Fluids: 00:00 Date Last Intake of Solids: 04/20/19 Time Last Intake of Solids: 20:00 Past Medical History Medical History Abnormal glucose (Acute) Achilles tendon sprain (Acute) Benign neoplasm of large intestine (Acute) Carotid artery stenosis (Acute) Gastroesophageal reflux disease (Acute) Hypercholesterolemia (Acute) Paranoid schizophrenia (Acute) Vitamin D deficiency (Acute) Neck abscess (Acute) Heart murmur (Acute) HLD (hyperlipidemia) (Chronic) Exercise / Class Metabolic Activity II 4-5 Yardwork/Stairs/Walk up hill Past Family History Family History Other No pertinent family history Past Anesthesia History No Hx of Anesthesia Complications and No Family Hx of Anesthesia Complications History of PONV No Hx of PONV and No Hx of Motion Sickness Social History Smoking Status: Former smoker Hx Alcohol Use: Yes (stopped in approx 1999) Hx Substance Use: No Physical Exam Vital Signs Last Vital Signs Temp 37.0 C 04/21/19 07:42 Pulse 84 04/21/19 07:42 Resp 16 04/21/19 07:42 BP 146/76 H 04/21/19 07:42 Pulse Ox 90 04/21/19 07:42 ENMT Mouth: + poor dentition Thyromental Distance: > or= 3.5 Finger Breadths Mallampati Class: III Neck normal visual inspection Respiratory normal respiratory effort Auscultation: lungs clear to auscultation bilaterally Cardiovascular Rate/Rhythm: regular rate and regular rhythm Psychiatric Orientation: alert Testing Laboratory Results 04/21/19 06:44 04/21/19 06:44 Urine Color Yellow 04/20/19 21:44 Urine Appearance Clear (Clear) 04/20/19 21:44 Urine pH 5.0 (4.5-7.5) 04/20/19 21:44 Ur Specific Dime Box > 1.045 (1.000-1.030) H 04/20/19 21:44 Urine Protein 1+ (Negative) H 04/20/19 21:44 Urine Glucose (UA) Negative (Negative) 04/20/19 21:44 Urine Ketones Trace (Negative) H 04/20/19 21:44 Urine Nitrite Negative (Negative) 04/20/19 21:44 Ur Leukocyte Esterase Negative (Negative) 04/20/19 21:44 Urine WBC (Auto) 1-5 /hpf (0-5) 04/20/19 21:44 Urine RBC (Auto) 0-4 /hpf (0-4) 04/20/19 21:44 U Hyaline Cast (Auto) 1-5 /lpf (0-5) 04/20/19 21:44 U Epithel Cells (Auto) 5-10 /lpf (0-5) H 04/20/19 21:44 Urine Bacteria (Auto) Negative (Negative) 04/20/19 21:44 Electrocardiogram Date: 04/20/19 Findings: + NSR @ (84) Normal ECG Chest X-Ray Date: 10/16/18 XR chest 1V portable CLINICAL HISTORY: Chest Pain COMPARISON STUDY: No previous studies for comparison. FINDINGS: No pneumothorax or pleural effusion is noted. There is no evidence for pulmonary edema. Apparent hazy left basilar opacity is likely artifactual. There is mild cardiomegaly. IMPRESSION: No acute cardiopulmonary findings.
[2019-04-21] MEDS ORDERED: ACETAMINOPHEN 1000 MG/100 ML IV IV ONE (06:51)
[2019-04-21 07:14] LABS: Hematocrit (blood only) 40.9 % (42-52); Hemoglobin 13.8 g/dL (14.0-18.0); Mean Corpuscular Hgb Conc 33.7 g/dL (32-36); Mean Corpuscular Volume 91.5 fL (80-100); Platelet Count 133 K/uL (130-400); RDW Coefficient of Variation 12.8 % (11.5-14.5); RDW Standard Deviation 43.2 fL (36.4-46.3); Red Blood Count 4.47 M/uL (4.7-6.1); White Blood Count 17.35 K/uL (4.8-10.8)
[2019-04-21 07:50] LABS: BUN Creatinine Ratio 12.4 (10-20); Calcium 8.5 mg/dl (8.5-10.1); Creatinine Clr Calc Pharmacy 81.4 ml/min; Est GFR (African American) 94.3; Est GFR (Non-African American) 81.3
[2019-04-21] MEDS ORDERED: ONDANSETRON INJ 2 MG/ML 2 ML VIAL ONE (07:52)
[2019-04-21] MEDS ORDERED: MIDAZOLAM HCL 1 MG/ML 2ML VIAL ONE (07:52)
[2019-04-21] MEDS ORDERED: PROPOFOL IV EMULSION 10 MG/ML 20 ML VIAL IV ONE (07:52)
[2019-04-21] MEDS ORDERED: LIDOCAINE HCL 2% 2 ML VIAL/AMP(20MG/ML) INFIL ONE (07:52)
[2019-04-21] MEDS ORDERED: fentaNYL citrate 100 MCG/2 ML VIAL ONE (07:52)
[2019-04-21] MEDS ORDERED: DEXAMETHASONE SOD INJ 4 MG/ML VIAL ONE (07:52)
[2019-04-21] MEDS: PERPHENAZINE 2 MG TABLET PO SCH ×2 (07:56→20:28)
[2019-04-21] MEDS: OLANZapine 5 MG TABLET PO SCH ×2 (07:56→20:27)
--- NOTE | 2019-04-21 08:59 | Surgery Progress Note ---
Date of Service April 21, 2019 Assessment & Plan (1) Acute gangrenous cholecystitis: 68-year-old male with acute gangrenous cholecystitis. Plan for laparoscopic cholecystectomy, possible cholangiogram, possible open today in the operating room The risks of the procedure were discussed to include but not limited to bleeding, infection, conversion to open, damage to surrounding structures including common bile duct, retained stone, bile leak, need for future or more extensive surgery, and the risks of anesthesia N.p.o., IV antibiotics, IV fluid (2) Carotid artery stenosis: (3) Gastroesophageal reflux disease: (4) Hypercholesterolemia: (5) Paranoid schizophrenia: Subjective 68-year-old male admitted with acute calculus cholecystitis and concern for gangrenous cholecystitis. He is doing well this morning, still some nausea but his pain is improving. No other changes. Physical Exam Constitutional: WD/WN, vitals as above Gastrointestinal (Abdomen): Percussion/Palpation: + abdomen tender (Tender to palpation in right upper quadrant, positive Teixeira sign) and abdomen soft; no hepatosplenomegaly, no hernia and no abdominal mass Results & Data Vital Signs (Past 12 Hours) Vital Signs Temp Pulse Resp BP Pulse Ox 04/21/19 07:42 37.0 C 84 16 146/76 H 90 04/20/19 22:53 37.0 C 78 18 136/77 92 Laboratory Results Laboratory Results - last 24 hr 04/20/19 04/20/19 04/20/19 17:02 17:02 17:02 WBC 17.17 H RBC 4.41 L Hgb 13.9 L Hct 40.4 L MCV 91.6 MCH 31.5 MCHC 34.4 RDW Std Deviation 43.2 RDW Coeff of Larissa 12.8 Plt Count 140 MPV 10.3 Immature Gran % (Auto) 0.3 Neut % (Auto) 80.6 Lymph % (Auto) 8.8 [place] % (Auto) 10.1 Eos % (Auto) 0.1 Baso % (Auto) 0.1 Immature Gran # (Auto) 0.06 H Neut # (Auto) 13.84 H Lymph # (Auto) 1.51 [place] # (Auto) 1.73 H Eos # (Auto) 0.01 Baso # (Auto) 0.02 ESR 44 H Sodium 136 Potassium 3.6 Chloride 101 Carbon Dioxide 29 Anion Gap 6.0 BUN 14 Creatinine 1.08 Est Cr Clr Drug Dosing Not Reportable Est GFR ( Amer) 80.7 Est GFR (Non-Af Amer) 69.7 BUN/Creatinine Ratio 12.9 Glucose 108 H POC Lactic Acid Jani Calcium 8.9 Total Bilirubin 1.1 H Direct Bilirubin AST 25 ALT 21 Alkaline Phosphatase 48 Troponin I < 0.015 C-Reactive Protein 20.90 H Total Protein 7.4 Albumin 3.8 Globulin 3.6 Albumin/Globulin Ratio 1.1 Lipase 77 Urine Color Urine Appearance Urine pH Ur Specific Conde Urine Protein Urine Glucose (UA) Urine Ketones Urine Blood Urine Nitrite Urine Bilirubin Urine Urobilinogen Ur Leukocyte Esterase Urine WBC (Auto) Urine RBC (Auto) U Hyaline Cast (Auto) U Epithel Cells (Auto) Urine Bacteria (Auto) Hepatitis C Ab Screen 04/20/19 04/20/19 04/20/19 17:02 19:36 21:44 WBC RBC Hgb Hct MCV MCH MCHC RDW Std Deviation RDW Coeff of Larissa Plt Count MPV Immature Gran % (Auto) Neut % (Auto) Lymph % (Auto) [place] % (Auto) Eos % (Auto) Baso % (Auto) Immature Gran # (Auto) Neut # (Auto) Lymph # (Auto) [place] # (Auto) Eos # (Auto) Baso # (Auto) ESR Sodium Potassium Chloride Carbon Dioxide Anion Gap BUN Creatinine Est Cr Clr Drug Dosing Est GFR ( Amer) Est GFR (Non-Af Amer) BUN/Creatinine Ratio Glucose POC Lactic Acid Jani 1.08 Calcium Total Bilirubin Direct Bilirubin AST ALT Alkaline Phosphatase Troponin I C-Reactive Protein Total Protein Albumin Globulin Albumin/Globulin Ratio Lipase Urine Color Yellow Urine Appearance Clear Urine pH 5.0 Ur Specific Conde > 1.045 H Urine Protein 1+ H Urine Glucose (UA) Negative Urine Ketones Trace H Urine Blood Negative Urine Nitrite Negative Urine Bilirubin Negative Urine Urobilinogen Negative Ur Leukocyte Esterase Negative Urine WBC (Auto) 1-5 Urine RBC (Auto) 0-4 U Hyaline Cast (Auto) 1-5 U Epithel Cells (Auto) 5-10 H Urine Bacteria (Auto) Negative Hepatitis C Ab Screen Neg 04/21/19 04/21/19 04/21/19 06:44 06:44 07:55 WBC 17.35 H RBC 4.47 L Hgb 13.8 L Hct 40.9 L MCV 91.5 MCH 30.9 MCHC 33.7 RDW Std Deviation 43.2 RDW Coeff of Larissa 12.8 Plt Count 133 MPV 10.0 Immature Gran % (Auto) Neut % (Auto) Lymph % (Auto) [place] % (Auto) Eos % (Auto) Baso % (Auto) Immature Gran # (Auto) Neut # (Auto) Lymph # (Auto) [place] # (Auto) Eos # (Auto) Baso # (Auto) ESR Sodium 138 Potassium Chloride 105 Carbon Dioxide 26 Anion Gap 7.0 BUN 12 Creatinine 0.95 Est Cr Clr Drug Dosing 81.4 Est GFR ( Amer) 94.3 Est GFR (Non-Af Amer) 81.3 BUN/Creatinine Ratio 12.4 Glucose 115 H POC Lactic Acid Jani Calcium 8.5 Total Bilirubin Direct Bilirubin 0.3 H AST ALT Alkaline Phosphatase Troponin I C-Reactive Protein Total Protein Albumin Globulin Albumin/Globulin Ratio Lipase Urine Color Urine Appearance Urine pH Ur Specific Conde Urine Protein Urine Glucose (UA) Urine Ketones Urine Blood Urine Nitrite Urine Bilirubin Urine Urobilinogen Ur Leukocyte Esterase Urine WBC (Auto) Urine RBC (Auto) U Hyaline Cast (Auto) U Epithel Cells (Auto) Urine Bacteria (Auto) Hepatitis C Ab Screen PG Care Time/CCT Total # of Minutes Spent Total Time Spent with Patient: Total time spent is greater than 50% in coordination of care (as documented) at patient's floor/unit and/or counseling patient:
[2019-04-21] MEDS ORDERED: BUPIVACAINE 0.5 % 5 MG/1 ML MPF 30ML VIAL ONE (09:25)
[2019-04-21] MEDS ORDERED: CONRAY 60% 50 ML VIAL ONE (09:25)
[2019-04-21] MEDS ORDERED: HYDROmorphone INJ 1 MG/ML SYRINGE IV PRN (09:26)
[2019-04-21] MEDS ORDERED: ONDANSETRON INJ 2 MG/ML 2 ML VIAL IV PRN (09:26)
[2019-04-21] MEDS ORDERED: ATROPINE SULFATE 0.1 MG/ML 10ML SYR IV PRN (09:26)
[2019-04-21] MEDS ORDERED: PROMETHAZINE HCL 6.25 MG in SODIUM CHLORIDE 0.9% 50 ML IV PRN (09:26)
[2019-04-21] MEDS ORDERED: fentaNYL citrate 100 MCG/2 ML VIAL IV PRN (09:26)
[2019-04-21] MEDS ORDERED: ePHEDrine sulfate 50 MG/ML AMP IV PRN (09:26)
[2019-04-21] MEDS ORDERED: MoRPHine SULFATE 2 MG/ML CARP ONE (10:04)
[2019-04-21] MEDS ORDERED: NEOSTIGMINE METHYLSULFATE 5 MG/5 ML SYR ONE (10:43)
[2019-04-21] MEDS ORDERED: GLYCOPYRROLATE 0.2 MG/ML VIAL ONE (10:43)
--- NOTE | 2019-04-21 10:50 | Operative Report ---
Post Operative Report Pre & Post Diagnosis Operation Date: 04/21/19 10:30 Pre-Op Diagnosis: Acute gangrenous cholecystitis Post-Op Diagnosis: Acute gangrenous cholecystitis Procedure Operation Date: 04/21/19 10:30 Actual Procedures p Laparoscopic Cholecystectomy(Not Applicable) - David Lynch DO, RONAK Surgeon David Lynch DO, RONAK Pilot Safety Inspector Jett Fernando Estimated Blood Loss 15 Findings Consistent with Post-Op Diagnosis Acute cholecystitis with empyema of the gallbladder. Gallbladder aspirated to assist with retraction. Critical view of safety obtained cystic duct and artery doubly clipped and divided. A 10 mm flat CYNTHIA drain left in the gallbladder fossa. Good hemostasis per Specimens Gallbladder Drains 10 mm CYNTHIA drain in gallbladder fossa Anesthesia Type General Complications none Disposition Accompanied Patient To Recovery: No Disposition: Recovery Room Indications 68-year-old male admitted with evidence of acute gangrenous cholecystitis on CT scan. Plan for laparoscopic cholecystectomy, possible cholangiogram, possible open. The risks of the procedure were discussed, all questions were answered, and the patient agreed to proceed with surgery as planned. Description of Procedure The patient was properly identified, consented, and taken to the operating room where he was placed in the supine position. General endotracheal anesthesia was induced. SCDs and a safety belt were placed. Preoperative antibiotics were administered. The patient's abdomen was prepped and draped in the standard sterile fashion. A surgical timeout was performed and all parties were in agreement that this was the correct patient and procedure to be performed and we continued as planned. An incision was made superior and to the left of the umbilicus overlying the rectus muscle and the Veress needle was inserted. Saline drop test confirmed entry into the peritoneum. The abdomen was insufflated with carbon dioxide which the patient tolerated without incident. The abdomen was then entered using the Optiview technique and a 5 mm trocar. The laparoscope was inserted and no damage from initial trocar or Veress needle placement was noted, no gross abnormalities were noted within the 4 quadrants of the abdomen. An 11 mm port was placed in the subxiphoid position and two 5 mm ports were then placed in the right subcostal position. The patient was placed in reverse Trendelenburg position and rotated towards the left. The gallbladder was acutely and significantly inflamed. The omentum was peeled off of the gallbladder. The gallbladder was aspirated to allow for retraction. The dome of the gallbladder was retracted towards the left upper quadrant and the infundibulum was retracted toward the right lower quadrant revealing Calot's triangle. Peritoneal attachments were taken down with electrocautery and blunt dissection. The cystic duct and artery were circumferentially dissected. A window of safety was obtained showing the cystic duct entering the gallbladder with no aberrant structures noted. The cystic duct and artery were doubly clipped and divided. The gallbladder was then lifted off the gallbladder fossa with electrocautery. During retraction there is some purulent drainage coming from the superior portion of the gallbladder. The gallbladder was placed in an Endo Catch bag and removed through the subxyphoid port site, which had to be extended to allow for removal of the gallbladder. The right upper quadrant was irrigated and hemostasis was found to be good. A 10 mm CYNTHIA drain was placed in the gallbladder fossa and exited through 1 of the right subcostal incisions. It was secured into place using a 2-0 nylon suture. 5 mm trochars were removed under direct visualization and the abdomen was allowed to collapse. The subxyphoid port site fascia was closed with 0 Vicryl suture. The wound was irrigated, and the skin of all ports was closed with 4-0 Monocryl subcuticular sutures. Dermabond was placed over the wounds. The patient was extubated in the operating room and taken to the PACU where he recovered without apparent incident. All sponge, instrument and needle counts were correct at the conclusion of the procedure. The patient tolerated the procedure well. The physician's botany laboratory assistant was present and scrubbed for the entirety of the case and was essential in positioning the patient, prepping and draping, retraction and exposure, driving the laparoscope, removal of the gallbladder, closure the incisions, and placement of the dressings. I attest to the content of the Intraoperative Record and any orders documented therein. Any exceptions are noted below.
--- NOTE | 2019-04-21 12:13 | Anesthesiology Progress Note ---
Date of Service April 21, 2019 Anesthesia Post Procedure Vital Signs Vital Signs: Temp Pulse Pulse Pulse Resp BP BP 04/21/19 12:05 36.9 C 82 18 128/70 04/21/19 11:55 36.9 C 82 18 128/71 04/21/19 11:45 36.9 C 82 18 130/70 04/21/19 11:35 36.9 C 87 18 143/71 H 04/21/19 11:25 88 21 142/68 H 04/21/19 11:15 88 21 150/69 H 04/21/19 11:05 80 16 159/69 H 04/21/19 10:58 37.2 C 80 20 151/71 H 04/21/19 07:42 37.0 C 84 16 146/76 H 04/20/19 22:53 37.0 C 78 18 136/77 04/20/19 20:20 37.7 C H 81 18 134/77 04/20/19 20:00 85 25 H 146/71 H 04/20/19 19:30 87 23 148/76 H 04/20/19 19:00 85 29 H 147/77 H 04/20/19 18:36 87 20 162/75 H 04/20/19 18:30 86 23 162/75 H 04/20/19 18:00 86 27 H 152/89 H 04/20/19 17:43 85 22 04/20/19 17:18 85 20 153/81 H 04/20/19 17:17 04/20/19 16:37 36.8 C 87 18 133/70 Pulse Ox 04/21/19 12:05 93 04/21/19 11:55 93 04/21/19 11:45 92 04/21/19 11:35 92 04/21/19 11:25 92 04/21/19 11:15 93 04/21/19 11:05 93 04/21/19 10:58 93 04/21/19 07:42 90 04/20/19 22:53 92 04/20/19 20:20 94 04/20/19 20:00 93 04/20/19 19:30 04/20/19 19:00 92 04/20/19 18:36 93 04/20/19 18:30 94 04/20/19 18:00 92 04/20/19 17:43 92 04/20/19 17:18 93 04/20/19 17:17 94 04/20/19 16:37 95 Pain Intensity Right Abdomen: Pain Intensity: 8 Transfer of Care Handoff Completed per policy Notes Mental Status: alert / awake / arousable Patient Amnestic to Procedure: Yes Nausea / Vomiting: adequately controlled Pain: adequately controlled Airway Patency, RR, SpO2: stable & adequate BP & HR: stable & adequate Hydration State: stable & adequate Anesthetic Complications: no major complications apparent
[2019-04-21] MEDS: FAMOTIDINE 20 MG in SYRINGE 3 ML IV SCH ×2 (12:27→20:27)
[2019-04-21] MEDS ORDERED: MoRPHine SULFATE 4 MG/ML 1 ML CARP\\VIAL IV PRN (12:42)
[2019-04-21] MEDS ORDERED: OXYCODONE/ACETAMINOPHEN 5mg/325mg TAB PO PRN ×2 (12:42)
--- NOTE | 2019-04-21 16:31 | Hospitalist Progress Note ---
Date of Service April 21, 2019 Assessment & Plan (1) Acute gangrenous cholecystitis: Patient presented with acute gangrenous cholecystitis on CT imaging Now status post cholecystectomy, CYNTHIA drain in place -Remains on Zosyn Leukocytosis persists Appreciate general surgery management -Continue pain control -Add on bowel regimen with MiraLAX, docusate -Is now on clear liquids diet postop-advance diet as per surgery (2) Abnormal glucose: With what seems to be impaired fasting glucose -Check hemoglobin A1c in the morning (3) Gastroesophageal reflux disease: -Continue IV Pepcid (4) Paranoid schizophrenia: Patient schizophrenia is been challenging in the past -Continue home meds with olanzapine and perphenazine -Continue lorazepam daily (5) Hypercholesterolemia: Atorvastatin is typical for him and will be on hold as well as his aspirin -Likely restart aspirin and statin tomorrow (6) DVT prophylaxis: SCDs Add on subcu heparin when okay with surgery Disposition-remain hospitalized for continued IV antibiotics, postoperative management Subjective Patient having some pain and bloating in the abdomen status post cholecystectomy today. Denies chest pain or shortness of breath, denies nausea and tolerated clear liquids for lunch. Review of Systems Review of Systems: All systems reviewed & are unremarkable except as noted in HPI & below Physical Exam Constitutional: WD/WN, vitals as above + obese Eyes: + anicteric sclerae ENMT: external ear and nose normal, oropharynx normal Neck: trachea midline, no thyromegaly Respiratory: normal respiratory effort, lungs clear to auscultation Cardiovascular: RRR, no murmur, no edema Gastrointestinal (Abdomen): Inspection/Auscultation: + abdomen distended (Mild) and + hypoactive bowel sounds; + abdomen abnormal to inspection (Dressings in place with CYNTHIA drain with serosanguineous drainage) Percussion/Palpation: + abdomen tender (Over incision sites without guarding or rebound) and abdomen soft; no guarding and abdomen not rigid Musculoskeletal: Extremities: extremities normal to inspection; no cyanosis and no clubbing Skin: no rashes, warm and dry Neurologic: moves all extremities and awake; no focal motor deficits Psychiatric: A+Ox3, euthymic affect Results & Data Vital Signs (Past 12 Hours) Vital Signs Temp Pulse Pulse Resp BP Pulse Ox 04/21/19 15:28 36.7 C 16 135/78 90 04/21/19 14:00 76 16 135/79 97 04/21/19 13:30 77 16 127/75 93 04/21/19 13:09 16 136/76 91 04/21/19 13:00 75 18 130/74 92 04/21/19 12:45 76 16 127/72 98 04/21/19 12:30 36.3 C L 75 16 128/73 98 04/21/19 12:05 36.9 C 82 18 128/70 93 04/21/19 11:55 36.9 C 82 18 128/71 93 04/21/19 11:45 36.9 C 82 18 130/70 92 04/21/19 11:35 36.9 C 87 18 143/71 H 92 04/21/19 11:25 88 21 142/68 H 92 04/21/19 11:15 88 21 150/69 H 93 04/21/19 11:05 80 16 159/69 H 93 04/21/19 10:58 37.2 C 80 20 151/71 H 93 04/21/19 07:42 37.0 C 84 16 146/76 H 90 Laboratory Results Labs reviewed PG Care Time/CCT Total # of Minutes Spent Total Time Spent with Patient: Total time spent is greater than 50% in coordination of care (as documented) at patient's floor/unit and/or counseling patient:
[2019-04-21] MEDS: POLYETHYLENE (MIRALAX) 17 GM PACK PO SCH (18:11)
[2019-04-21] MEDS: DOCUSATE SODIUM 100 MG CAP PO SCH (20:27)
[2019-04-22] MEDS: PIPERACILLIN/TAZOBACTAM 4.5 GM in DEXTROSE 5% 100 ML IV SCH ×2 (02:46→09:38)
[2019-04-22 06:07] LABS: Hematocrit (blood only) 35.8 % (42-52); Hemoglobin 12.4 g/dL (14.0-18.0); Mean Corpuscular Hgb Conc 34.6 g/dL (32-36); Mean Corpuscular Volume 89.1 fL (80-100); Mean Platelet Volume 10.4 fL (7.4-10.4); Platelet Count 152 K/uL (130-400); RDW Coefficient of Variation 12.5 % (11.5-14.5); RDW Standard Deviation 40.3 fL (36.4-46.3); Red Blood Count 4.02 M/uL (4.7-6.1); White Blood Count 13.78 K/uL (4.8-10.8)
[2019-04-22 06:42] LABS: BUN Creatinine Ratio 14.4 (10-20); Calcium 8.1 mg/dl (8.5-10.1); Creatinine Clr Calc Pharmacy 95.5 ml/min; Est GFR (African American) 105.1; Est GFR (Non-African American) 90.7; Potassium 3.5 mmol/L (3.5-5.1)
[2019-04-22] MEDS: FAMOTIDINE 20 MG in SYRINGE 3 ML IV SCH (08:10)
[2019-04-22] MEDS: POLYETHYLENE (MIRALAX) 17 GM PACK PO SCH (08:10)
[2019-04-22] MEDS: DOCUSATE SODIUM 100 MG CAP PO SCH (08:11)
[2019-04-22] MEDS: PERPHENAZINE 2 MG TABLET PO SCH (08:11)
[2019-04-22] MEDS: OLANZapine 5 MG TABLET PO SCH (08:12)
--- NOTE | 2019-04-22 09:42 | Surgery Progress Note ---
Date of Service April 22, 2019 Assessment & Plan (1) Acute gangrenous cholecystitis: POD#1 lap cholecystectomy, doing well okay to d/c to home po abx po pain meds d/c drain wound care instructions and activity restrictions reviewed f/u in clinic in 2 weeks return precautions given Present on Admission?: Yes Subjective POD#1 lap cholecystectomy for gangrenous cholecystitis. Doing well, feels bett er than prior to surgery. Pain controlled, tolerating diet, ambulating. Physical Exam Constitutional: WD/WN, vitals as above Gastrointestinal (Abdomen): Inspection/Auscultation: + abdominal surgical incision (some echymossis, incisions c/d/i) Percussion/Palpation: abdomen soft drain w/ ss drainage, non bilious Results & Data Vital Signs (Past 12 Hours) Vital Signs Temp Pulse Resp BP Pulse Ox 04/22/19 06:58 36.3 C L 67 16 124/68 90 04/22/19 03:55 36.8 C 66 18 118/68 91 04/22/19 00:00 36.5 C 75 17 152/88 H 94 PG Care Time/CCT Total # of Minutes Spent Total Time Spent with Patient: Total time spent is greater than 50% in coordination of care (as documented) at patient's floor/unit and/or counseling patient:
--- NOTE | 2019-04-22 12:16 | Discharge Summary ---
Date of Service April 22, 2019 Admission HPI Per Admitting Provider This 68-year-old paranoid schizophrenic male presents with 2 days of right upper quadrant pain he actually thought he injured his ribs. He is also had preceding hospital constipation and some mild nausea without vomiting. He is found to be febrile on presentation and CT scan confirms concern for gangrenous cholecystitis. He seen by surgical consultation in the emergency department who recommends intravenous antibiotics and possible taken to the OR on 04/21/2019 Patient was quizzed about his prehospital state before he was feeling ill he said no chest pain or pressure he has no dyspnea on exertion he can lay flat in bed he said no bleeding or bruising problems in the past he said no issues with anesthesia. Patient was concerned of his mental health medications as he feels his take a long time to get them adjusted where he needs him to be therefore we will give him his medications in the morning with a small sip of water preoperatively Principal Diagnosis Acute gangrenous cholecystitis Discharge Exam Constitutional WD/WN, vitals as above + obese Eyes + anicteric sclerae ENMT external ear and nose normal, oropharynx normal Neck trachea midline, no thyromegaly Respiratory normal respiratory effort, lungs clear to auscultation Cardiovascular RRR, no murmur, no edema Gastrointestinal (Abdomen) Inspection/Auscultation: normal bowel sounds; + abdomen abnormal to inspection (Dressings in place, CYNTHIA drain removed) Percussion/Palpation: abdomen soft; abdomen nontender, no guarding and abdomen not rigid Musculoskeletal Extremities: extremities normal to inspection; no cyanosis and no clubbing Skin no rashes, warm and dry Neurologic moves all extremities and awake; no focal motor deficits Psychiatric A+Ox3, euthymic affect Discharge Data Allergies Allergy/AdvReac Type Severity Reaction Status Date / Time aspirin AdvReac Mild OTHER-HX Verified 04/20/19 19:12 [facility] Consultations 04/20/19 19:31 ED Decision to Admit Stat 04/20/19 20:35 Consult General Surgery Routine Procedures Performed Operation Date: 04/21/19 10:30 Actual Procedures p Laparoscopic Cholecystectomy(Not Applicable) - David Lynch DO, FACS Ordered Studies 04/20/19 16:50 CT abd pelvis IV con only Stat Ribs with CXR Hospital Course (1) Acute gangrenous cholecystitis: Patient presented with acute gangrenous cholecystitis on CT imaging Now status post cholecystectomy, CYNTHIA drain removed on POD#1, doing very well, tolerating low fat diet, pain controlled, moving bowels--> stable for dc to home as per Gen Surgery -treated with Zosyn and niurka convert to po Cipro x 5 more days Leukocytosis much improved Appreciate general surgery management -Continue pain control at home with percocet prn -continue docusate bid with percocet -f/u with Surgery within 2 weeks as outpt (2) Abnormal glucose: With what seems to be impaired fasting glucose -Check hemoglobin A1c -pending at time of discharge f/u with PCP (3) Gastroesophageal reflux disease: -received IV Pepcid here, dc upon discharge (4) Paranoid schizophrenia: Chung's schizophrenia has been challenging in the past to treat but is currently stable -Continue home meds with olanzapine and perphenazine -Continue lorazepam daily (5) Hypercholesterolemia: Atorvastatin is typical for him and will be on hold as well as his aspirin - restart aspirin and statin upon discharge (6) DVT prophylaxis: SCDs AMbulation Disposition-stable for dc to home Total Time Total Time Spent Total Time Spent (In Minutes): >30 min Total Time Includes: Examination of the Patient, Discharge Planning, Medication Reconciliation and Communication With Other Providers (General Surgery) Discharge Plan Discharge Items Patient Disposition: Home - Home Health Services Reason For Visit: CHOLECYSTITIS Discharge Diagnosis: status post cholecystectomy Condition: Good Discharge Goals: Decrease discomfort and Therapeutic intervention Activity: Per 'Additional Instructions' section Activity Comment: no strenuous activity for 3 weeks. otherwise activity as tolerated Lifting: No more than 25 pounds Lifting Comment: for 3 weeks Bathing: No limitations Driving/Machine Use: Resume 3 days after discharge Non-emergency contact: Surgeon Call non-emergency contact if: you have any medication questions, your pain is not controlled, you have a fever, your temperature is above 101.5 and your wound has increased redness Follow-up/Referrals: Eric Yanes MD [Primary Care Provider] - (Please call for an appointment within 2 weeks. ) David Lynch DO, RONAK [Physician] - (Call to make an appointment in 2 weeks) Diet: Regular Addtl Provider Instructions: Please finish out the course of antibiotics as prescribed. You can take Percocet as needed for pain. Please take a stool softener as needed for constipation. Continue all your other home meds as before. Please follow up with the Surgeon and with your PCP within 2 weeks. Prescriptions: New oxycodone-acetaminophen [Percocet] 5-325 mg tablet 1 - 2 tab PO Q4H PRN (Reason: pain) Qty: 15 RF: 0 ciprofloxacin HCl 500 mg tablet 500 mg PO BID Qty: 10 RF: 0 docusate sodium 100 mg Capsule 100 mg PO BID Qty: 60 RF: 0 Continued aspirin 81 mg tablet,delayed release (DR/EC) 81 mg PO DAILY RF: 0 atorvastatin 20 mg tablet 20 mg PO QPM RF: 0 lorazepam 1 mg tablet 1 mg PO HS RF: 0 lorazepam 0.5 mg Tablet 0.5 mg PO QAM RF: 0 olanzapine 15 mg Tablet 15 mg PO BID RF: 0 perphenazine 8 mg tablet 8 mg PO QAM RF: 0 perphenazine 8 mg tablet 16 mg PO QPM RF: 0 Changed cholecalciferol (vitamin D3) 2,000 unit Tablet 2,000 unit PO DAILY Qty: 0 RF: 0 Stand-Alone Forms: Call Back Authorization, [facility], Work/School Release (Inpt) Discharge Orders: Discharge Order (Routine); Ordered 04/22/19 Ordered By: Christy Ybarra Admission Data Admit Date/Time: 04/20/19 19:42 Attending Provider: Christy Ybarra Admit Provider: Reza Szymanski Primary Care Provider: Eric Yanes Other Providers: Reza Szymanski ; David Lynch Service: Medical Other Pending Studies at Discharge: Yes Studies:: pathology
[2019-04-23 06:24] LABS: Estimated Average Glucose 123 mg/dl; Hemoglobin A1C 5.9 % (4.5-5.6)
== END 2019-04-22 13:26 | disposition home health service (06) | DRG 418 ==
LOC: ED 16:31 → SUATTDRO 19:42 → 3N 19:42

== ENCOUNTER 2022-12-01 08:18 | Observation (INO) ==
[2022-12-01] MEDS ORDERED: SODIUM CHLORIDE 0.9% 500 ML IV STA (08:26)
--- NOTE | 2022-12-01 08:28 | Emergency Department Note ---
Impression & Plan Weakness ADMIT ED Provider Note HPI: The patient is a 72-year-old gentleman with history of schizophrenia, who presents emergency department with a chief complaint of diarrhea, generalized weakness, shortness of breath with exertion. Patient states that his significan t other recently contracted COVID-19 in a [facility], he has been there multiple times to visit and he was concerned that he might have COVID. Patient also states that he has had some pain in his bilateral hips, he states he is having difficulty walking around his home. Per report he was able to ambulate to the ambulance this morning but with some difficulty with his walker. On arrival here to the ED the patient is otherwise alert, he is hemodynamically stable on my initial assessment. ROS: - Per HPI *Outpatient medications and allergy history reviewed. *Pertinent external medical records reviewed. PE: General: Alert HEENT: Normocephalic, trachea midline Eyes: Extraocular eye movement is intact, no scleral erythema Pulmonary: Clear to auscultation bilaterally, no wheezing Cardio: Regular rate and rhythm GI: Abdomen is soft to palpation : No suprapubic tenderness MSK: No evidence of trauma or malformation of the extremities, no edema, maintains flexion at the hips bilaterally with minimal pain Skin: No evidence of rash Neuro: Alert, no focal deficits Psychiatric: Cooperative geology associate: (As interpreted by myself): - An order was placed for continuous cardiac monitoring - Patient was noted to be in sinus rhythm with a rate of 75 EKG: (As interpreted by myself): Rate: 83 Rhythm: Normal sinus rhythm Intervals: Within normal limits ST changes: No ST elevation Time: 0823 Interventions provided in ED: -IV fluid bolus Differential Diagnosis: Hip fracture, ambulatory dysfunction, COVID-19 infection, sepsis/infection, ACS, PE, viral URI, urinary tract infection, amongst other potential pathologies. Medical Decision Making: The patient is a 72-year-old gentleman with history of schizophrenia who presented to the emergency department with a chief complaint of generalized weakness, nonspecific dyspnea, concern for COVID-19 infection, and ambulatory dysfunction at home. On arrival here to the ED the patient is hemodynamically stable. IV was established and lab work obtained, patient was placed on bid manager, EKG does not show any acute ischemic changes or arrhythmia, troponin is negative. Lab work shows no leukocytosis, mild anemia with hemoglobin of 13.8, platelet count is within normal limits. CMP does not show any critical electrolyte abnormalities or transaminitis. X-ray imaging of the chest does not show any obvious pneumonia, x-ray imaging of the hip shows evidence of bilateral osteoarthritis without fracture or dislocation. In regards to the patient's dyspnea his COVID-19 testing is negative, chest x- ray does not show any obvious pneumonia, he does not have any chest pain, low suspicion for ACS given negative troponin and reassuring EKG, low suspicion for PE given no tachycardia or hypoxia. On my reassessment patient states that he does not feel comfortable for discharge, states he is having significant difficulty ambulating any significant distance without his walker. He states with his walker he can still ambulate short distances and has difficulty with stairs. I did discuss this with case management is at this time the patient does not appear to need medical admission. Patient did have a referral for inpatient rehabilitation however there was no male bed available for today and patient will require admission to the medicine service for his ambulatory dysfunction and eventual placement [facility] tomorrow. Patient was in agreement to this plan, he was placed for admission in stable condition to the [facility]. Consultants: Case management Disposition discussion held by myself with: Patient Diagnosis: 1. Ambulatory dysfunction, acute 2. Nonspecific dyspnea, acute Disposition: ADMIT [facility], Emergency Medicine Past Med/Surg History Medical History Achilles tendon sprain Anxiety Benign neoplasm of large intestine Diverticular disease Gastroesophageal reflux disease Heart murmur HLD (hyperlipidemia) Hypercholesterolemia Neck abscess Paranoid schizophrenia Pre-diabetes Shortness of breath Urinary urgency Vitamin D deficiency Surgical History History of bleeding peptic ulcer History of colonoscopy with polypectomy History of esophagogastroduodenoscopy (EGD) History of tonsillectomy History of tooth extraction S/P cataract extraction S/P laparoscopic cholecystectomy (04/21/19) Family History Grandmother Diabetes Coronary heart disease Uncle Diabetes Colonic polyp Father Throat cancer Brother Prostate cancer Mother Peritonitis Other No family history of adverse response to anesthesia No pertinent family history Denies family history of Ovarian cancer Breast cancer Social History Smoking Status: Never smoker Tobacco Type: Cigars Age Started Using Tobacco: 29; Age Quit Using Tobacco: 50; Second Hand Exposure: Yes (parents smoked/partner smoked); Hx Alcohol Use: No Hx Substance Use: No Preferred Language: Occitan Communication Ability: Effective Visual Impairment: No Limitations Hearing Ability: Normal Installment Account Checker Required: No Beliefs That Will Affect Care: None marital status: Single Current Living Situation: Significant Other Current Living Situation Comment: [facility] current occupational status: retired current occupation: [employer]-retired Feels Safe at Home: Yes Childhood Exposure to Second-Hand Smoke: No during the past year weight has: remained stable Dental Care, Regularly: No Physical Activity Frequency: Daily Seatbelt Use: always Sunscreen Use: No Assistive Devices: Glasses Allergies Allergies Allergy/AdvReac Type Severity Reaction Status Date / Time aspirin AdvReac Mild OTHER-HX Verified 11/24/22 10:27 ULCER Home Meds Home Medications Medication Instructions Recorded Confirmed olanzapine 15 mg tablet 15 mg PO BID 10/16/18 12/01/22 aspirin 81 mg tablet,delayed 81 mg PO QAM 02/02/19 12/01/22 release lorazepam 0.5 mg tablet 0.5 mg PO DIRECTED 09/25/19 12/01/22 cholecalciferol (vitamin D3) 50 2,000 unit PO QAM 06/13/20 12/01/22 mcg (2,000 unit) tablet perphenazine 16 mg tablet 16 mg PO QPM 10/24/20 12/01/22 Previous Rx's Medication Instructions Recorded mecobalamin (vitamin B12) 1,000 1,000 mcg PO DAILY #30 tabs 11/12/22 mcg chewable tablet metformin 500 mg tablet 500 mg PO BID #60 tabs 11/12/22 atorvastatin 20 mg tablet 20 mg PO QPM #90 tabs 11/18/22 Results & Data (ED) Vital Signs Vital Signs - 24 hr 12/01/22 08:29 12/01/22 08:18 12/01/22 08:53 Temperature 36.3 C L Temperature Source Oral Pulse Rate 81 84 Pulse Rhythm Regular Pulse Strength Normal Respiratory Rate 14 Respiratory Effort / Characteristics Non-Labored Respiratory Depth Normal Blood Pressure 140/74 Blood Pressure Mean 96 Blood Pressure Position Sitting Pulse Oximetry 93 94 Oxygen Delivery Method Room Air Room Air Sepsis Recent Fever Within 48 Hours No Sepsis New/Unexplained Change in Mental Status N/A Sepsis Action Taken by Nursing No Action Required 12/01/22 08:25 12/01/22 08:30 12/01/22 09:00 Temperature Temperature Source Pulse Rate 84 79 77 Pulse Rhythm Pulse Strength Respiratory Rate 23 24 22 Respiratory Effort / Characteristics Respiratory Depth Blood Pressure Blood Pressure Mean Blood Pressure Position Pulse Oximetry 93 93 93 Oxygen Delivery Method Room Air Room Air Room Air Sepsis Recent Fever Within 48 Hours Sepsis New/Unexplained Change in Mental Status Sepsis Action Taken by Nursing 12/01/22 09:30 12/01/22 10:00 12/01/22 10:30 Temperature Temperature Source Pulse Rate 73 78 76 Pulse Rhythm Pulse Strength Respiratory Rate 22 20 19 Respiratory Effort / Characteristics Respiratory Depth Blood Pressure Blood Pressure Mean Blood Pressure Position Pulse Oximetry 96 96 95 Oxygen Delivery Method Room Air Room Air Room Air Sepsis Recent Fever Within 48 Hours Sepsis New/Unexplained Change in Mental Status Sepsis Action Taken by Nursing 12/01/22 11:54 12/01/22 13:41 Temperature Temperature Source Pulse Rate 78 71 Pulse Rhythm Pulse Strength Respiratory Rate 23 Respiratory Effort / Characteristics Respiratory Depth Blood Pressure 153/85 H Blood Pressure Mean 107 Blood Pressure Position Pulse Oximetry 96 Oxygen Delivery Method Room Air Sepsis Recent Fever Within 48 Hours Sepsis New/Unexplained Change in Mental Status Sepsis Action Taken by Nursing Laboratory Data 12/01/22 08:30 12/01/22 08:30 Lab Results 12/01/22 12/01/22 12/01/22 Range/Units 08:30 08:30 08:30 WBC 8.51 (4.8-10.8) K/ul RBC 4.55 L (4.70-6.10) M/uL Hgb 13.8 L (14.0-18.0) g/dl Hct 41.0 L (42.0-52.0) % MCV 90.1 (80.0-100.0) fL MCH 30.3 (25.0-34.0) pg MCHC 33.7 (32.0-36.0) g/dL RDW Std Deviation 42.3 (36.4-46.3) fL RDW Coeff of Larissa 13.0 (11.5-14.5) % Plt Count 166 (130-400) K/uL MPV 10.1 (9.4-12.4) fL Immature Gran % (Auto) 0.5 % Neut % (Auto) 74.9 % Lymph % (Auto) 14.2 % Dickson % (Auto) 7.6 % Eos % (Auto) 2.1 % Baso % (Auto) 0.7 % Neut # (Auto) 6.37 (1.40-6.50) K/uL Lymph # (Auto) 1.21 (1.2-3.4) K/uL Dickson # (Auto) 0.65 H (0.11-0.59) K/uL Eos # (Auto) 0.18 (0-0.50) K/uL Baso # (Auto) 0.06 (0-0.2) K/uL Immature Gran # (Auto) 0.04 (0.01-0.20) K/uL PT 11.9 (9.0-12.0) Seconds INR 1.1 (0.9-1.1) Sodium 139 (136-145) mmol/L Potassium 4.1 (3.5-5.1) mmol/L Chloride 103 (98-107) mmol/L Carbon Dioxide 27 (21-32) mmol/L Anion Gap 9 (3-11) BUN 16 (6-23) mg/dl Creatinine 0.93 (0.6-1.4) mg/dl Est Cr Clr Drug Dosing 78.9 ml/min Est GFR ( Amer) 94.1 ml/min Est GFR (Non-Af Amer) 81.2 ml/min BUN/Creatinine Ratio 17.2 (10-20) Glucose 105 H (70-99(Fasting)) mg/dl Calcium 9.3 (8.5-10.1) mg/dl Total Bilirubin 0.5 (0.2-1.0) mg/dl AST 33 (13-39) U/L ALT 27 (7-52) U/L Alkaline Phosphatase 48 (34-104) U/L Troponin I High Sens 12.0 (0-20) pg/ml Total Protein 7.1 (6.0-8.3) gm/dl Albumin 4.5 (3.4-5.0) gm/dl Globulin 2.6 (2.5-4.0) gm/dl Albumin/Globulin Ratio 1.7 (0.9-2) Lipase 20 (11-82) U/L Urine Color Urine Appearance (Clear) Urine pH (4.5-7.5) Ur Specific [place] (1.000-1.030) Urine Protein (Negative) Urine Glucose (UA) (Negative) Urine Ketones (Negative) Urine Blood (Negative) Urine Nitrite (Negative) Urine Bilirubin (Negative) Urine Urobilinogen (Negative) Ur Leukocyte Esterase (Negative) Urine WBC (Auto) (0-5) /hpf Urine RBC (Auto) (0-4) /hpf U Hyaline Cast (Auto) (0-5) /lpf U Epithel Cells (Auto) (0-5) /lpf Urine Bacteria (Auto) (Negative) SARS-CoV-2 (PCR) (Negative) Influenza Type A (PCR) (Neg) Influenza Type B (PCR) (Neg) RSV (RT-PCR) (Neg) 12/01/22 12/01/22 Range/Units 09:24 Unknown WBC (4.8-10.8) K/ul RBC (4.70-6.10) M/uL Hgb (14.0-18.0) g/dl Hct (42.0-52.0) % MCV (80.0-100.0) fL MCH (25.0-34.0) pg MCHC (32.0-36.0) g/dL RDW Std Deviation (36.4-46.3) fL RDW Coeff of Larissa (11.5-14.5) % Plt Count (130-400) K/uL MPV (9.4-12.4) fL Immature Gran % (Auto) % Neut % (Auto) % Lymph % (Auto) % Dickson % (Auto) % Eos % (Auto) % Baso % (Auto) % Neut # (Auto) (1.40-6.50) K/uL Lymph # (Auto) (1.2-3.4) K/uL Dickson # (Auto) (0.11-0.59) K/uL Eos # (Auto) (0-0.50) K/uL Baso # (Auto) (0-0.2) K/uL Immature Gran # (Auto) (0.01-0.20) K/uL PT (9.0-12.0) Seconds INR (0.9-1.1) Sodium (136-145) mmol/L Potassium (3.5-5.1) mmol/L Chloride (98-107) mmol/L Carbon Dioxide (21-32) mmol/L Anion Gap (3-11) BUN (6-23) mg/dl Creatinine (0.6-1.4) mg/dl Est Cr Clr Drug Dosing ml/min Est GFR ( Amer) ml/min Est GFR (Non-Af Amer) ml/min BUN/Creatinine Ratio (10-20) Glucose (70-99(Fasting)) mg/dl Calcium (8.5-10.1) mg/dl Total Bilirubin (0.2-1.0) mg/dl AST (13-39) U/L ALT (7-52) U/L Alkaline Phosphatase (34-104) U/L Troponin I High Sens (0-20) pg/ml Total Protein (6.0-8.3) gm/dl Albumin (3.4-5.0) gm/dl Globulin (2.5-4.0) gm/dl Albumin/Globulin Ratio (0.9-2) Lipase (11-82) U/L Urine Color Yellow Urine Appearance Cloudy A (Clear) Urine pH 6.0 (4.5-7.5) Ur Specific [place] 1.008 (1.000-1.030) Urine Protein Negative (Negative) Urine Glucose (UA) Negative (Negative) Urine Ketones Negative (Negative) Urine Blood Negative (Negative) Urine Nitrite Negative (Negative) Urine Bilirubin Negative (Negative) Urine Urobilinogen Negative (Negative) Ur Leukocyte Esterase Negative (Negative) Urine WBC (Auto) 1-5 (0-5) /hpf Urine RBC (Auto) 0-4 (0-4) /hpf U Hyaline Cast (Auto) 0 (0-5) /lpf U Epithel Cells (Auto) 10-20 H (0-5) /lpf Urine Bacteria (Auto) Negative (Negative) SARS-CoV-2 (PCR) NEGATIVE (Negative) Influenza Type A (PCR) Negative (Neg) Influenza Type B (PCR) Negative (Neg) RSV (RT-PCR) Negative (Neg) Administered Medications Discontinued Medications Sodium Chloride (Nss) 500 mls @ 999 mls/hr IV .Q31M STA Stop: 12/01/22 08:56 Last Infusion: 12/01/22 09:59 Dose: 0 mls/hr Documented By: Admin: 12/01/22 08:55 Dose: 999 mls/hr Documented By: Imaging Data Radiologist's Impression: Chest X-Ray 12/01/22 08:26 XR chest 1V portable HISTORY: Chest pain, nonspecific COMPARISON: Chest and right rib series 04/20/2019. FINDINGS: Mild reticulonodular interstitial thickening noted at the left lung base. Otherwise, the lungs are clear. The heart is normal in size. No pleural effusions. No pneumothorax. No rib fractures identified. IMPRESSION: Mild reticulonodular interstitial thickening at the left lung base which is likely chronic. A low-grade pneumonitis could also have a similar appearance. ACT 112: Negative or not required by law. Electronically signed by: Gustavo Stone M.D. 12/01/2022 8:46 AM Hip/Pelvis X-Ray 12/01/22 10:43 XR hip GINGER 2v w pelvis CLINICAL HISTORY: ambulatory problems, b/l hip pain COMPARISON STUDY: Pelvis and hip radiographs November 25, 2022. FINDINGS: Sacroiliac joints and symphysis pubis are intact. There is no acute fracture within the pelvis or hips. Hip joint spaces are preserved. There is moderate right and mild left hip osteophytosis. There is no evidence for avascular necrosis of the femoral heads. Left pelvic calcifications favor phleboliths. IMPRESSION: 1. No acute fracture within the pelvis or hips. 2. Moderate right and mild left hip osteoarthritis. ACT 112: Negative or not required by law. Electronically signed by: Tarun West M.D. 12/01/2022 11:34 AM Discharge Plan Visit Data Chief Complaint: Leg Weakness, Bilateral Stated Complaint: Weak ED Provider: [facility] Discharge Problem: Weakness Patient Disposition: Home - Self-Care Condition: Good Discharge Instructions Krames/Other Patient Handouts: ED Weakness (Uncertain Cause) Activity Restrictions/Additional Instructions: Please follow-up with your primary care doctor in 2 to 3 days. Please return to the ED if you have any new or worsening symptoms. Forms Stand Alone Forms: [facility], [facility] Emergency Department, Important Visit Information Prescriptions Prescriptions: No Action mecobalamin (vitamin B12) 1,000 mcg tablet,chewable 1,000 mcg PO DAILY Qty: 30 0RF metformin 500 mg tablet 500 mg PO BID Qty: 60 2RF Rx [facility] mg tablet 20 mg PO QPM Qty: 90 3RF lorazepam 0.5 mg tablet 0.5 mg PO DIRECTED Rx Instructions: 0.5 mg PO 0.5 mg p.o. Q a.m. and 1 mg p.o. q.p.m. aspirin 81 mg tablet,delayed release (DR/EC) 81 mg PO QAM cholecalciferol (vitamin D3) 2,000 unit tablet 2,000 unit PO QAM olanzapine 15 mg Tablet 15 mg PO BID perphenazine 16 mg Tablet 16 mg PO QPM Referrals Referrals: Byron Yanes MD [Primary Care Provider] -
--- NOTE | 2022-12-01 08:48 | XRay Report ---
XR chest 1V portable HISTORY: Chest pain, nonspecific COMPARISON: Chest and right rib series 04/20/2019. FINDINGS: Mild reticulonodular interstitial thickening noted at the left lung base. Otherwise, the rodriguez ngs are clear. The heart is normal in size. No pleural effusions. No pneumothorax. No rib fractures i dentified. IMPRESSION: Mild reticulonodular interstitial thickening at the left lung base which is likely chronic. A low-gra de pneumonitis could also have a similar appearance. ACT 112: Negative or not required by law. Electronically signed by: Gustavo Stone M.D. 12/01/2022 8:46 AM
[2022-12-01 09:16] LABS: Basophils # (auto) 0.06 K/uL (0-0.2); Basophils % (auto) 0.7 %; Eosinophils # (auto) 0.18 K/uL (0-0.50); Eosinophils % (auto) 2.1 %; Hemoglobin 13.8 g/dl (14.0-18.0); Immature Granulocytes # (auto) 0.04 K/uL (0.01-0.20); Immature Granulocytes % (auto) 0.5 %; Lymphocytes # (auto) 1.21 K/uL (1.2-3.4); Lymphocytes % (auto) 14.2 %; Mean Corpuscular Hemoglobin 30.3 pg (25.0-34.0); Mean Corpuscular Hgb Conc 33.7 g/dL (32.0-36.0); Mean Corpuscular Volume 90.1 fL (80.0-100.0); Mean Platelet Volume 10.1 fL (9.4-12.4); Monocytes # (auto) 0.65 K/uL (0.11-0.59); Monocytes % (auto) 7.6 %; Neutrophils # (auto) 6.37 K/uL (1.40-6.50); Neutrophils % (auto) 74.9 %; Platelet Count 166 K/uL (130-400); RDW Standard Deviation 42.3 fL (36.4-46.3); Red Blood Count 4.55 M/uL (4.70-6.10); White Blood Count 8.51 K/ul (4.8-10.8)
[2022-12-01 09:38] LABS: Albumin Globulin Ratio 1.7 (0.9-2); Albumin Level 4.5 gm/dl (3.4-5.0); BUN Creatinine Ratio 17.2 (10-20); Bilirubin,Total 0.5 mg/dl (0.2-1.0); Calcium 9.3 mg/dl (8.5-10.1); Creatinine Clr Calc Pharmacy 78.9 ml/min; Est GFR (African American) 94.1 ml/min; Est GFR (Non-African American) 81.2 ml/min; Globulin 2.6 gm/dl (2.5-4.0); Potassium 4.1 mmol/L (3.5-5.1); Total Protein 7.1 gm/dl (6.0-8.3)
[2022-12-01 09:43] LABS: INR 1.1 (0.9-1.1); Prothrombin Time 11.9 Seconds (9.0-12.0)
[2022-12-01 09:47] LABS: Appearance Urine Cloudy (Clear); Bacteria Urine Automated Negative (Negative); Bilirubin Urine Negative (Negative); Blood Urine Negative (Negative); Cast Urine Automated 0 /lpf (0-5); Color Urine Yellow; Glucose Urine UA Negative (Negative); Ketones Urine Negative (Negative); Leukocyte Esterase Urine Negative (Negative); Nitrite Urine Negative (Negative); Protein Urine Negative (Negative); RBC Urine Automated 0-4 /hpf (0-4); Specific Gravity Urine 1.008 (1.000-1.030); Urobilinogen Urine Negative (Negative)
[2022-12-01 09:59] LABS: Influenza A virus by PCR Negative (Neg); Influenza B virus by PCR Negative (Neg); RSV by PCR Negative (Neg); SARS CoV2 RNA(COVID-19) Ceph NEGATIVE (Negative)
--- NOTE | 2022-12-01 11:35 | XRay Report ---
XR hip GINGER 2v w pelvis CLINICAL HISTORY: ambulatory problems, b/l hip pain COMPARISON STUDY: Pelvis and hip radiographs November 25, 2022. FINDINGS: Sacroiliac joints and symphysis pubis are intact. There is no acute fracture within the pel vis or hips. Hip joint spaces are preserved. There is moderate right and mild left hip osteophytosis. There is no evidence for avascular necrosis of the femoral heads. Left pelvic calcifications favor p hleboliths. IMPRESSION: 1. No acute fracture within the pelvis or hips. 2. Moderate right and mild left hip osteoarthritis. ACT 112: Negative or not required by law. Electronically signed by: Tarun West M.D. 12/01/2022 11:34 AM
--- NOTE | 2022-12-01 15:32 | History & Physical Report ---
Date of Service December 01, 2022 Assessment & Plan (1) Weakness: Plan: Generalized weakness, worse in b/l LE and b/l hip pain - Place in observation to med/surg - Carb consistent diet - Vital signs q shift - PT/OT eval - Case management to assist in d/c to rehab arrangements (2) Hypercholesterolemia: Plan: - Resume simvastatin (3) Pre-diabetes: Plan: - Carb consistent diet - Continue Metformin 500mg BID (4) Paranoid schizophrenia: Plan: - Continue Lorazepam, Olanzapine, and Perphenazine Plan Hold off on dvt chemoprophylaxis as he is likely only to be here overnight and is a fall risk. Above plan of care has been d/w Dr. Lamas who will also see and evaluate this patient. Further orders will be implemented as warranted. History of Present Illness Chief Complaint: leg weakness Primary Care Provider: Byron Yanes MD Patient is a 72 yo WM with a pmhx of schizophrenia, pre-diabetes, and hyperlipidemia who presented to the ER today c/o generalized weakness and difficulty walking. He was concerned due to being exposed to COVID-19 that he m ay have COVID. He does admit to also having bilateral hip pain. His work up in the ER was essentially unremarkable. Hip/pelvis xrays were completed that showed moderate osteoarthritis. No fractures. He was negative for covid, flu a/b and rsv. ED attempted to facilitate getting patient to [facility]; however, they did not have any male beds available. Subsequently, he was referred to the hospitalists for observation. Allergies Allergy/AdvReac Type Severity Reaction Status Date / Time aspirin AdvReac Mild OTHER-HX Verified 11/24/22 10:27 [facility] Home Medications Medication Instructions Recorded Confirmed Type olanzapine 15 mg tablet 15 mg PO BID 10/16/18 12/01/22 History aspirin 81 mg tablet,delayed 81 mg PO QAM 02/02/19 12/01/22 History release lorazepam 0.5 mg tablet 0.5 mg PO DIRECTED 09/25/19 12/01/22 History cholecalciferol (vitamin D3) 50 2,000 unit PO QAM 06/13/20 12/01/22 History mcg (2,000 unit) tablet perphenazine 16 mg tablet 16 mg PO QPM 10/24/20 12/01/22 History mecobalamin (vitamin B12) 1,000 1,000 mcg PO DAILY #30 tabs 11/12/22 12/01/22 Rx mcg chewable tablet metformin 500 mg tablet 500 mg PO BID #60 tabs 11/12/22 12/01/22 Rx atorvastatin 20 mg tablet 20 mg PO QPM #90 tabs 11/18/22 12/01/22 Rx Past Med/Surg History Medical History Achilles tendon sprain Anxiety Benign neoplasm of large intestine Diverticular disease Gastroesophageal reflux disease Heart murmur HLD (hyperlipidemia) Hypercholesterolemia Neck abscess Paranoid schizophrenia Pre-diabetes Shortness of breath Urinary urgency Vitamin D deficiency Surgical History History of bleeding peptic ulcer History of colonoscopy with polypectomy History of esophagogastroduodenoscopy (EGD) History of tonsillectomy History of tooth extraction S/P cataract extraction S/P laparoscopic cholecystectomy (04/21/19) Family History Grandmother Diabetes Coronary heart disease Uncle Diabetes Colonic polyp Father Throat cancer Brother Prostate cancer Mother Peritonitis Other No family history of adverse response to anesthesia No pertinent family history Denies family history of Ovarian cancer Breast cancer Social History Smoking Status: Former smoker Tobacco Type: Cigars Age Started Using Tobacco: 29; Age Quit Using Tobacco: 50; Second Hand Exposure: Yes (parents smoked/partner smoked); Hx Alcohol Use: No Hx Substance Use: No Preferred Language: Malaysian Communication Ability: Effective Visual Impairment: No Limitations Hearing Ability: Normal Dough Mixer Operator Required: No Beliefs That Will Affect Care: None marital status: Single Current Living Situation: Alone Current Living Situation Comment: [address] current occupational status: retired current occupation: [employer]-retired Feels Safe at Home: Yes Childhood Exposure to Second-Hand Smoke: No during the past year weight has: remained stable Dental Care, Regularly: No Physical Activity Frequency: Daily Seatbelt Use: always Sunscreen Use: No Assistive Devices: Walker Physical Exam Physical Exam: GENERAL: 72 yo Well-developed, well-nourished elderly WM. NAD. LUNGS: Clear to auscultation bilaterally. CARDIOVASCULAR: Regular rate and rhythm. Results & Data Results & Data Vital Signs (Past 12 Hours) Vital Signs Temp Pulse Resp BP Pulse Ox O2 Del Method 12/01/22 14:00 69 23 132/76 96 Room Air 12/01/22 13:41 71 12/01/22 11:54 78 23 153/85 H 96 Room Air 12/01/22 10:30 76 19 95 Room Air 12/01/22 10:00 78 20 96 Room Air 12/01/22 09:30 73 22 96 Room Air 12/01/22 09:00 77 22 93 Room Air 12/01/22 08:30 79 24 93 Room Air 12/01/22 08:25 84 23 93 Room Air 12/01/22 08:53 94 Room Air 12/01/22 08:18 36.3 C L 84 14 140/74 93 Room Air 12/01/22 08:29 81 Laboratory Results 12/01/22 08:30 12/01/22 08:30 Diagnostic Findings Chest X-Ray 12/01/22 08:26 XR chest 1V portable HISTORY: Chest pain, nonspecific COMPARISON: Chest and right rib series 04/20/2019. FINDINGS: Mild reticulonodular interstitial thickening noted at the left lung base. Otherwise, the lungs are clear. The heart is normal in size. No pleural effusions. No pneumothorax. No rib fractures identified. IMPRESSION: Mild reticulonodular interstitial thickening at the left lung base which is likely chronic. A low-grade pneumonitis could also have a similar appearance. ACT 112: Negative or not required by law. Electronically signed by: Gustavo Stone M.D. 12/01/2022 8:46 AM Hip/Pelvis X-Ray 12/01/22 10:43 XR hip GINGER 2v w pelvis CLINICAL HISTORY: ambulatory problems, b/l hip pain COMPARISON STUDY: Pelvis and hip radiographs November 25, 2022. FINDINGS: Sacroiliac joints and symphysis pubis are intact. There is no acute fracture within the pelvis or hips. Hip joint spaces are preserved. There is moderate right and mild left hip osteophytosis. There is no evidence for avascular necrosis of the femoral heads. Left pelvic calcifications favor phleboliths. IMPRESSION: 1. No acute fracture within the pelvis or hips. 2. Moderate right and mild left hip osteoarthritis. ACT 112: Negative or not required by law. Electronically signed by: Tarun West M.D. 12/01/2022 11:34 AM Supervising Physician Co-Signing Physician Notes Patient seen and examined, chart reviewed, case discussed with Cindy Starkey PA-C and I agree with the assessment and plan as above except as otherwise noted Labs and images reviewed Chung is a 72-year-old male with past medical history of prediabetes, schizophrenia, hyperlipidemia with generalized weakness and difficulty walking and concern for COVID. Moderate OA but no fractures on ER hip and pelvis x- rays. Due to ongoing weakness and difficulty performing ADLs was recommended for [facility], beds are not available at this time and has been recommended for inpatient observation while pending placement. At bedside assessment in the ER he does not have tremor, lungs are clear, heart rate is regular. Distal extremity movement is intact and symmetrical without focal weakness, easily fatigued. Agree with recommendations above, PT/OT and placement pending. PG Care Time/CCT Total # of Minutes Spent Total Time Spent with Patient: Total time spent is greater than 50% in coordination of care (as documented) at patient's floor/unit and/or counseling patient: Coding Level of Care Code 34068 INT INP/OBS CARE 2/55MIN Diagnoses Weakness R53.1 Hypercholesterolemia E78.00 Pre-diabetes R73.03 Paranoid schizophrenia F20.0
[2022-12-01] MEDS ORDERED: MAGNESIUM HYDROXIDE SUSP 30 ML UDC PO PRN (16:52)
[2022-12-01] MEDS ORDERED: ALUMINUM/MAGNESIUM SUSP 30 ML UDC PO PRN (16:52)
[2022-12-01] MEDS ORDERED: POLYETHYLENE (MIRALAX) 17 GM PACK PO PRN (16:52)
[2022-12-01] MEDS ORDERED: ONDANSETRON INJ 2 MG/ML 2 ML VIAL IV PRN (16:52)
[2022-12-01] MEDS: metFORMIN HCL 500 MG TAB PO SCH (20:47)
[2022-12-01] MEDS: ATORVASTATIN 20 MG TAB PO SCH (20:47)
[2022-12-01] MEDS: OLANZapine 5 MG TABLET PO SCH (20:47)
[2022-12-01] MEDS: PERPHENAZINE 2 MG TABLET PO SCH (20:48)
[2022-12-01] MEDS: LORazepam 1 MG TAB PO SCH (20:51)
[2022-12-01] MEDS: ACETAMINOPHEN 325 MG TAB PO PRN (20:56)
[2022-12-02] MEDS: ASPIRIN 81 MG ECTAB PO SCH (08:21)
[2022-12-02] MEDS: metFORMIN HCL 500 MG TAB PO SCH ×2 (08:21→20:14)
[2022-12-02] MEDS: OLANZapine 5 MG TABLET PO SCH ×2 (08:21→20:14)
[2022-12-02] MEDS: LORazepam 0.5 MG TAB PO SCH (08:25)
--- NOTE | 2022-12-02 09:28 | Hospitalist Progress Note ---
Date of Service December 02, 2022 Assessment & Plan (1) Weakness: Plan: Generalized weakness, worse in b/l LE and b/l hip pain Backgound of chronic schizophrenia with delusional thinking, unclear is stable or risk evaluation and ruling out metabolic encephalopathy X ray suggests bilateral hip osteoarthritis plunk oral medications to try to control symptoms - - PT/OT eval - Case management to assist in d/c to rehab arrangements (2) Hypercholesterolemia: Plan: Chronic and stable simvastatin (3) Pre-diabetes: Plan: - chronic stable Carb consistent diet - Continue Metformin 500mg BID (4) Paranoid schizophrenia: Plan: - chronic, unclear if stable, unknown risk Continue Lorazepam, Olanzapine, and Perphenazine Plan Patient feels cannot safely care for himself at home due to his falls. He is fearful about having a significant injury. Controlling his osteoarthritic pain will be undertaken PT OT evaluation and eventual placement for possible rehabilitation. Admission and Anticipated Discharge Date Admission Date: December 01, 2022 Subjective Patient was seen presence of his family. They provide additional history that he was having increasing falls probably for the last 5 to 7 days. Physical Exam Physical Exam: Very pleasant gentleman able to provide good history states that he just falls down because he is wobbly and loses his balance. Initial descriptions for osteoarthritic hip pain are not well found that he does not have any significant pain but feels mostly wobbly when he moves about Results & Data Results & Data Vital Signs (Past 12 Hours) Vital Signs Temp Pulse Resp BP Pulse Ox O2 Del Method 12/02/22 07:56 97.9 F 65 16 121/72 95 Room Air PG Care Time/CCT Total # of Minutes Spent Total Time Spent with Patient: Total time spent is greater than 50% in coordination of care (as documented) at patient's floor/unit and/or counseling patient: Coding Level of Care Code 52945 SUB INP/OBS CARE 2/35MIN Diagnoses Weakness R53.1 Hypercholesterolemia E78.00 Pre-diabetes R73.03 Paranoid schizophrenia F20.0
[2022-12-02] MEDS: ACETAMINOPHEN 325 MG TAB PO PRN (20:14)
[2022-12-02] MEDS: ATORVASTATIN 20 MG TAB PO SCH (20:14)
[2022-12-02] MEDS: LORazepam 1 MG TAB PO SCH (20:14)
[2022-12-02] MEDS: PERPHENAZINE 2 MG TABLET PO SCH (20:14)
[2022-12-03] MEDS: metFORMIN HCL 500 MG TAB PO SCH (08:49)
[2022-12-03] MEDS: ASPIRIN 81 MG ECTAB PO SCH (08:49)
[2022-12-03] MEDS: OLANZapine 5 MG TABLET PO SCH (08:50)
[2022-12-03] MEDS: ACETAMINOPHEN 325 MG TAB PO PRN (08:54)
[2022-12-03] MEDS: LORazepam 0.5 MG TAB PO SCH (08:54)
--- NOTE | 2022-12-03 18:02 | Hospitalist Progress Note ---
Date of Service December 03, 2022 Assessment & Plan Admission and Anticipated Discharge Date Admission Date: December 01, 2022 Results & Data Results & Data Vital Signs (Past 12 Hours) Vital Signs Temp Pulse Pulse Resp BP Pulse Ox O2 Del Method 12/03/22 11:10 97.9 F 75 71 17 130/75 94 12/03/22 08:04 97.9 F 75 17 130/75 94 Room Air PG Care Time/CCT Total # of Minutes Spent Total Time Spent with Patient: Total time spent is greater than 50% in coordination of care (as documented) at patient's floor/unit and/or counseling patient: Coding Diagnoses
--- NOTE | 2022-12-03 18:03 | Discharge Summary ---
Date of Service December 03, 2022 Admission HPI Per Admitting Provider Patient is a 72 yo WM with a pmhx of schizophrenia, pre-diabetes, and hyperlipidemia who presented to the ER today c/o generalized weakness and difficulty walking. He was concerned due to being exposed to COVID-19 that he may have COVID. He does admit to also having bilateral hip pain. His work up in the ER was essentially unremarkable. Hip/pelvis xrays were completed that showed moderate osteoarthritis. No fractures. He was negative for covid, flu a/b and rsv. ED attempted to facilitate getting patient to [facility]; however, they did not have any male beds available. Subsequently, he was referred to the hospitalists for observation. Principal Diagnosis Gait instability weakness Discharge Exam Patient awake and alert patient has continued gait instability no focal signs or symptoms at this time Discharge Data Allergies Allergy/AdvReac Type Severity Reaction Status Date / Time aspirin AdvReac Mild OTHER-HX Verified 11/24/22 10:27 [facility] Consultations 12/01/22 13:38 ED Decision to Admit Stat Hospital Course (1) Weakness: Generalized weakness, worse in b/l LE and b/l hip pain Backgound of chronic schizophrenia with delusional thinking, unclear is stable or risk evaluation and ruling out metabolic encephalopathy X ray suggests bilateral hip osteoarthritis transition to oral medications to try to control symptoms - - d/c to rehab (2) Hypercholesterolemia: Chronic and stable simvastatin (3) Pre-diabetes: - chronic stable Carb consistent diet - Continue Metformin 500mg BID (4) Paranoid schizophrenia: - chronic, unclear if stable, unknown risk Continue Lorazepam, Olanzapine, and Perphenazine, perphenazine doses inaccurate in the initial record he is 4 mg in the morning 60 mg at night Plan Patient feels cannot safely care for himself at home due to his falls. He is fearful about having a significant injury. Controlling his osteoarthritic pain will be undertaken subsequent transition to rehabilitation. Total Time Total Time Spent Total Time Spent (In Minutes): It required greater than 30 minutes to prepare this patient for discharge Discharge Plan Discharge Items Patient Disposition: Transfer Inpatient Rehab Fac Reason For Visit: weakness Discharge Diagnosis: gait instability Condition on Discharge: Good Activity: Per Instructions section Activity Comment: Per PT/OT Non-emergency contact: Primary Care Provider Call non-emergency contact if: your symptoms worsen Follow-up/Referrals: Byron Yanes MD [Primary Care Provider] - Diet: Carb Consistent or DM2 Addtl Attending Provider Instructions: continue to work hard in physical therapy Pending Studies at Discharge: No Stand-Alone Forms: My [email or web address] Skilled Items Patient informed of condition?: Yes DNR: No Discharge Level of Care: Acute rehab Communicable Disease: No Discharge Prognosis: Stable Lines: None Urinary Catheter: No Medications and DC Order Prescriptions: New perphenazine 4 mg tablet 4 mg PO DAILY Qty: 30 0RF Rx Instructions: This is in addition to the 16 mph at night Continued mecobalamin (vitamin B12) 1,000 mcg tablet,chewable 1,000 mcg PO DAILY Qty: 30 0RF metformin 500 mg tablet 500 mg PO BID Qty: 60 2RF Rx Instructions[facility] tablet 20 mg PO QPM Qty: 90 3RF lorazepam 0.5 mg tablet 0.5 mg PO DIRECTED Rx Instructions: 0.5 mg PO 0.5 mg p.o. Q a.m. and 1 mg p.o. q.p.m. aspirin 81 mg tablet,delayed release (DR/EC) 81 mg PO QAM cholecalciferol (vitamin D3) 2,000 unit tablet 2,000 unit PO QAM olanzapine 15 mg Tablet 15 mg PO BID perphenazine 16 mg Tablet 16 mg PO QPM Discharge Orders: Discharge Order (Routine); Ordered 12/03/22 Ordered By: Reza Szymanski Admission Data Admit Date/Time: 12/01/22 15:26 Attending Provider: Reza Szymanski Admit Provider: Charles Lamas Primary Care Provider: Byron Yanes Other Providers: [facility] ; Charles Lamas Other Interventions: Discharge Summary Assessment (RN) Last Done: 12/03/22 11:10 Coding Level of Care Code 71038 INP/OBS DISCH >30 MIN Diagnoses Weakness R53.1 Hypercholesterolemia E78.00 Pre-diabetes R73.03 Paranoid schizophrenia F20.0
--- NOTE | 2022-12-03 23:23 | Electrocardiogram Report ---
Test Reason : Blood Pressure : / mmHG Vent. Rate : 083 BPM Atrial Rate : 083 BPM P-R Int : 178 ms QRS Dur : 090 ms QT Int : 370 ms P-R-T Axes : 027 -19 050 degrees QTc Int : 434 ms Normal sinus rhythm Normal ECG When compared with ECG of 20-APR-2019 17:13, No significant change was found Confirmed by Brett Virk ([id number]) on 12/03/2022 11:23:28 PM Referred By: Confirmed By:Brett Virk
== END 2022-12-03 13:37 ==
LOC: ED 08:18 → 3N 08:18 → SUATTDRO 15:26 → 3N 16:25

== ENCOUNTER 2024-04-23 13:51 | Inpatient (IN) ==
--- NOTE | 2024-04-23 14:04 | Emergency Department Note ---
Impression & Plan Hypoxic, Sepsis, Hematuria ED Provider Note NAME: KEVEN KELLY AGE: 73 SEX: M : 1950 ARRIVES VIA: Ambulance INFORMANT: Patient ED PROVIDER(S): Enrique Waite DO CHIEF COMPLAINT: AMS HPI: Patient is a 73-year-old male with a past medical history of paranoid schizophrenia, GERD, prediabetes who presents to the ER for altered mental status brought in by EMS. They note that they were called as he was not making any sense. He notes that he had a colonoscopy earlier today but upon review of the records it was actually prostate biopsy. He denies any headache, chest pain but does admit to some lower belly pain. Denies any dysuria urgency or frequency. He notes he started peeing blood earlier today. ADDITIONAL HISTORY OBTAINED: Per HPI Chronic Medical/Social Conditions Affecting Care: Per HPI PAST MEDICAL HISTORY:See Below PAST SURGICAL HISTORY:See Below FAMILY HISTORY:See Below SOCIAL HISTORY:See Below HOME MEDICATIONS:See Below ALLERGIES:See Below VITALS:See Below PHYSICAL EXAMINATION: GENERAL: Sitting up in bed, alert, slightly ill-appearing, diaphoretic EYE EXAM: normal conjunctiva. PERRL and EOM's grossly intact. OROPHARYNX: no exudate, no erythema, lips, buccal mucosa, and tongue normal and mucous membranes are moist NECK: supple, no nuchal rigidity, no adenopathy, non-tender LUNGS: Clear to auscultation. Normal chest wall mechanics HEART: Tachycardic, S1 normal and S2 normal ABDOMEN: abdomen soft, non-tender, normo-active bowel sounds, no masses, no rebound or guarding. UPPER EXTREMITIES: upper extremities are grossly normal. LOWER EXTREMITIES: No pitting edema. NEURO EXAM: Oriented to person and place but not year, cranial nerves II-XII grossly intact, normal speech, no gross weakness of arms, no gross weakness of legs. MEDICAL DECISION MAKING: Patient is a 73-year-old male who presents ER status post prostate biopsy for altered mental status. He is found to be febrile and tachycardic. IV was established blood work was obtained. Jimenez was placed. Labs show a leukocytosis of 13,000. No significant anemia. INR unremarkable. BMP along with LFTs was remarkable for slightly elevated glucose at 110. Lactate was elevated at 2.6. LFTs bilirubin was unremarkable. Pro-Elmer 1.1. UA showed white cells and leuks concerning for infection. Patient was given IV fluids x 2 L in combination with IV Rocephin and placed on 2 L nasal cannula. Updated bedside and discussed with the hospitalist for further evaluation management treatment. Consults/Care Managements Discussions: Per [facility] Triage Nursing notes reviewed. Limited review of prior medical records performed Vital Signs: reviewed and remarkable for febrile and tachycardic Differential diagnosis: Differential diagnosis includes etiologies such as sepsis, UTI, pneumonia, metabolic, electrolyte abnormalities, cardiac sources, intracerebral event, toxicologic, neurological, as well as others were entertained. ER treatment provided: See below Diagnostics interpreted by me include EKG and cardiac monitoring as listed below: -Cardiac Monitoring: An order was placed for continuous cardiac monitoring. The monitor shows a rate of 133 with sinus tachycardia -ECG: Sinus tachycardia 126 Left axis No PVCs ST depressions in the inferior lateral leads QTc 434 -Laboratory studies:Interpreted by me as stated above in MDM and shown below. Imaging studies: Xrays: As interpreted by me: Portable AP upright 1 view of the chest shows no focal infiltrate CTs show: CT abdomen pelvis as described above Procedures: None Critical Care: I have personally spent 35 minutes of critical care time in the direct management of this patient. This includes bedside care, interpretation of diagnostic studies, and testing, discussion with consultants, patient, and family members, and other required patient management activities. This 35 minutes is in excess of all separately billable procedures. Past Med/Surg History Problem List (Updated 04/23/24 @ 20:08 by Enrique Waite DO) Hematuria (Acute) Sepsis (Acute) Hypoxic (Acute) History of prostate biopsy Sepsis Elevated PSA Vitamin D deficiency (Acute) Paranoid schizophrenia (Acute) Hypercholesterolemia (Acute) Gastroesophageal reflux disease (Acute) Benign neoplasm of large intestine (Acute) Achilles tendon sprain (Acute) resolved Pre-diabetes (Chronic) Urinary urgency History of colon polyps Weakness (Acute) Medical History Achilles tendon sprain Anxiety Benign neoplasm of large intestine Diverticular disease Gastroesophageal reflux disease Heart murmur HLD (hyperlipidemia) Hypercholesterolemia Neck abscess Paranoid schizophrenia Pre-diabetes Shortness of breath Urinary urgency Vitamin D deficiency Surgical History History of colonoscopy with polypectomy S/P cataract extraction History of esophagogastroduodenoscopy (EGD) History of tonsillectomy History of bleeding peptic ulcer History of tooth extraction S/P laparoscopic cholecystectomy (04/21/19) Family History Grandmother Diabetes Coronary heart disease Uncle Diabetes Colonic polyp Father Throat cancer Brother Prostate cancer Mother Peritonitis Other No family history of adverse response to anesthesia No pertinent family history Denies family history of Ovarian cancer Breast cancer Social History (Updated 12/12/23 @ 11:07 by Sangeeta Johnson LPN) Smoking Status: Unknown if ever smoked Tobacco Type: Cigars Age Started Using Tobacco: 29; Age Quit Using Tobacco: 50; Second Hand Exposure: Yes (parents smoked/partner smoked); Do You Dip or Chew Tobacco: No; Hx Alcohol Use: No Hx Substance Use: No Preferred Language: Hebrew Communication Ability: Effective Visual Impairment: No Limitations Hearing Ability: Normal [employer] Required: No Beliefs That Will Affect Care: None marital status: Single Current Living Situation: Alone Current Living Situation Comment: [address] current occupational status: retired current occupation: [employer]-retired Feels Safe at Home: Yes Childhood Exposure to Second-Hand Smoke: No Diet: diabetic and low salt caffeine: Yes during the past year weight has: remained stable Dental Care, Regularly: No Physical Activity Frequency: Daily Seatbelt Use: always Sunscreen Use: No Assistive Devices: Walker Allergies Allergies Allergy/AdvReac Type Severity Reaction Status Date / Time metformin AdvReac Mild Diarrhea Uncoded 12/12/23 11:21 Home Meds Home Medications Medication Instructions Recorded Confirmed olanzapine 15 mg tablet 15 mg PO BID 10/16/18 04/23/24 aspirin 81 mg tablet,delayed 81 mg PO QAM 02/02/19 04/23/24 release lorazepam 0.5 mg tablet 0.5 mg PO UD 09/25/19 04/23/24 cholecalciferol (vitamin D3) 50 2,000 unit PO QAM 06/13/20 04/23/24 mcg (2,000 unit) tablet perphenazine 16 mg tablet 16 mg PO QPM 10/24/20 04/23/24 perphenazine 4 mg tablet 4 mg PO QPM 04/23/24 04/23/24 Previous Rx's Medication Instructions Recorded atorvastatin 20 mg tablet 20 mg PO QPM #90 tabs 11/29/23 ciprofloxacin HCl 500 mg tablet 500 mg PO Q12H #6 tabs 04/10/24 (Cipro) Results & Data (ED) Vital Signs Vital Signs - 24 hr 04/23/24 13:47 04/23/24 13:47 04/23/24 14:00 Temperature 39.2 C H Temperature Source Oral Pulse Rate 134 H 123 H Pulse Rate from SpO2 Sensor 124 H Pulse Rhythm Regular Pulse Strength Normal Respiratory Rate 16 20 Respiratory Effort / Characteristics Non-Labored Spontaneous Respiratory Depth Normal Respiratory Pattern Regular Blood Pressure 149/76 H Blood Pressure Mean 100 Pulse Oximetry 88 L 88 L 92 Oxygen Delivery Method Room Air Nasal Cannula Oxygen Flow Rate 2 Sepsis Recent Fever Within 48 Hours No Sepsis New/Unexplained Change in Mental Status Yes Sepsis Action Taken by Nursing Physician Notified 04/23/24 14:00 04/23/24 14:02 04/23/24 14:14 Temperature Temperature Source Pulse Rate 112 H 123 H Pulse Rate from SpO2 Sensor Pulse Rhythm Regular Pulse Strength Respiratory Rate 20 Respiratory Effort / Characteristics Respiratory Depth Respiratory Pattern Blood Pressure 149/76 H Blood Pressure Mean 96 Pulse Oximetry 94 Oxygen Delivery Method Nasal Cannula Oxygen Flow Rate 2 Sepsis Recent Fever Within 48 Hours Sepsis New/Unexplained Change in Mental Status Sepsis Action Taken by Nursing 04/23/24 14:21 04/23/24 14:30 04/23/24 15:06 Temperature Temperature Source Pulse Rate 118 H Pulse Rate from SpO2 Sensor 115 H Pulse Rhythm Pulse Strength Respiratory Rate 22 17 Respiratory Effort / Characteristics Respiratory Depth Respiratory Pattern Blood Pressure 159/79 H Blood Pressure Mean 112 Pulse Oximetry 91 Oxygen Delivery Method Oxygen Flow Rate Sepsis Recent Fever Within 48 Hours Sepsis New/Unexplained Change in Mental Status Sepsis Action Taken by Nursing 04/23/24 15:27 04/23/24 15:30 04/23/24 15:42 Temperature Temperature Source Pulse Rate 104 H Pulse Rate from SpO2 Sensor Pulse Rhythm Pulse Strength Respiratory Rate 22 Respiratory Effort / Characteristics Respiratory Depth Respiratory Pattern Blood Pressure 139/75 136/64 Blood Pressure Mean 80 78 Pulse Oximetry Oxygen Delivery Method Oxygen Flow Rate Sepsis Recent Fever Within 48 Hours Sepsis New/Unexplained Change in Mental Status Sepsis Action Taken by Nursing 04/23/24 15:54 04/23/24 16:00 04/23/24 16:06 Temperature Temperature Source Pulse Rate 100 H 101 H Pulse Rate from SpO2 Sensor 100 H 102 H Pulse Rhythm Pulse Strength Respiratory Rate 20 30 H Respiratory Effort / Characteristics Respiratory Depth Respiratory Pattern Blood Pressure 132/72 Blood Pressure Mean 81 Pulse Oximetry 93 94 Oxygen Delivery Method Oxygen Flow Rate Sepsis Recent Fever Within 48 Hours Sepsis New/Unexplained Change in Mental Status Sepsis Action Taken by Nursing 04/23/24 16:15 04/23/24 16:30 04/23/24 16:33 Temperature Temperature Source Pulse Rate 99 H 98 H Pulse Rate from SpO2 Sensor 99 H 99 H Pulse Rhythm Pulse Strength Respiratory Rate 24 30 H Respiratory Effort / Characteristics Respiratory Depth Respiratory Pattern Blood Pressure 127/71 Blood Pressure Mean 92 Pulse Oximetry 95 96 Oxygen Delivery Method Oxygen Flow Rate Sepsis Recent Fever Within 48 Hours Sepsis New/Unexplained Change in Mental Status Sepsis Action Taken by Nursing 04/23/24 16:45 Temperature Temperature Source Pulse Rate 96 H Pulse Rate from SpO2 Sensor 97 H Pulse Rhythm Pulse Strength Respiratory Rate 22 Respiratory Effort / Characteristics Respiratory Depth Respiratory Pattern Blood Pressure Blood Pressure Mean Pulse Oximetry 95 Oxygen Delivery Method Oxygen Flow Rate Sepsis Recent Fever Within 48 Hours Sepsis New/Unexplained Change in Mental Status Sepsis Action Taken by Nursing Laboratory Data 04/23/24 14:10 04/23/24 14:10 Lab Results 04/23/24 04/23/24 04/23/24 Range/Units 14:10 14:16 16:20 WBC 13.00 H (4.8-10.8) K/ul RBC 4.83 (4.70-6.10) M/uL Hgb 14.6 (14.0-18.0) g/dl POC Hgb 14.3 (14.0-18.0) g/dl Hct 42.8 (42.0-52.0) % POC Hct 42 (42-52) % MCV 88.6 (80.0-100.0) fL MCH 30.2 (25.0-34.0) pg MCHC 34.1 (32.0-36.0) g/dL RDW Std Deviation 41.1 (36.4-46.3) fL RDW Coeff of Larissa 12.7 (11.5-14.5) % Plt Count 139 (130-400) K/uL MPV 10.4 (9.4-12.4) fL Immature Gran % (Auto) 0.4 % Neut % (Auto) 88.6 % Lymph % (Auto) 5.2 % Charlton % (Auto) 5.1 % Eos % (Auto) 0.3 % Baso % (Auto) 0.4 % Neut # (Auto) 11.52 H (1.40-6.50) K/uL Lymph # (Auto) 0.68 L (1.20-3.40) K/uL Charlton # (Auto) 0.66 H (0.11-0.59) K/uL Eos # (Auto) 0.04 (0.00-0.50) K/uL Baso # (Auto) 0.05 (0.00-0.20) K/uL Immature Gran # (Auto) 0.05 (0.01-0.20) K/uL PT 11.4 (9.0-12.0) Seconds INR 1.1 (0.9-1.1) POC Sodium 139 (135-144) mmol/L Sodium 138 (136-145) mmol/L POC Potassium 3.7 (3.3-5.0) mmol/L Potassium 3.7 (3.5-5.1) mmol/L POC Chloride 105 (101-112) mmol/L Chloride 103 (98-107) mmol/L Carbon Dioxide 23 (21-32) mmol/L POC Total CO2 22 L (24-31) mmol/L Anion Gap 12 H (3-11) POC Anion Gap 17.0 (16-25) mmol/L POC BUN 15 (7-18) mg/dl BUN 15 (6-23) mg/dl Creatinine 1.02 (0.6-1.4) mg/dl POC Creatinine 1.0 (0.6-1.3) mg/dl Est Cr Clr Drug Dosing 70.9 ml/min Est GFR ( Amer) 83.5 ml/min Est GFR (Non-Af Amer) 72.1 ml/min BUN/Creatinine Ratio 14.7 (10-20) Glucose 107 H (70-99(Fasting)) mg/dl POC Glucose (other) 106 H (70-99) mg/dl Lactate 2.6 H* 2.1 H* (0.4-2.0) mmol/L Calcium 9.9 (8.6-10.3) mg/dl POC Ioniz Calcium Jojo 1.15 (1.12-1.32) mmol/l Magnesium 1.7 (1.7-2.4) mg/dl Total Bilirubin 0.8 (0.2-1.0) mg/dl Direct Bilirubin 0.1 (0-0.2) mg/dl AST 17 (13-39) U/L ALT 16 (7-52) U/L Alkaline Phosphatase 52 (34-104) U/L Troponin I High Sens 18.6 (0-20) pg/ml Total Protein 7.3 (6.0-8.3) gm/dl Albumin 4.8 (3.4-5.0) gm/dl Procalcitonin 1.10 H (0-0.5) ng/ml Administered Medications Insulin Aspart (Insulin Aspart Per Unit Charge) 0 units SC ACHS TAWANA Stop: 05/23/24 20:59 Last Admin: 04/23/24 19:46 Dose: Not Given Documented By: SUZANNA Discontinued Medications Acetaminophen (Acetaminophen 325 Mg Tab) 650 mg PO NOW STA Stop: 04/23/24 14:01 Last Admin: 04/23/24 14:15 Dose: 650 mg Documented By: RADHA Sodium Chloride (Nss) 1,000 mls @ 999 mls/hr IV .Q1H1M TAWANA Stop: 04/23/24 16:00 Last Infusion: 04/23/24 18:08 Dose: Infused Documented By: Admin: 04/23/24 15:59 Dose: 999 mls/hr Documented By: Infusion: 04/23/24 15:14 Dose: Infused Documented By: Admin: 04/23/24 14:13 Dose: 999 mls/hr Documented By: RADHA Ceftriaxone Sodium (Rocephin) 2,000 mg in 50 mls @ 100 mls/hr IV NOW STA Stop: 04/23/24 14:30 Last Infusion: 04/23/24 15:59 Dose: Infused Documented By: Admin: 04/23/24 14:13 Dose: 100 mls/hr Documented By: RADHA Sodium Chloride (Nss) 1,000 mls @ 999 mls/hr IV .Q1H1M TAWANA Stop: 04/23/24 17:58 Last Infusion: 04/23/24 18:18 Dose: Infused Documented By: Admin: 04/23/24 17:12 Dose: 999 mls/hr Documented By: Metronidazole (Flagyl) 500 mg in 100 mls @ 100 mls/hr IV NOW STA; Protocol Stop: 04/23/24 18:02 Last Infusion: 04/23/24 18:08 Dose: Infused Documented By: Admin: 04/23/24 17:12 Dose: 100 mls/hr Documented By: EMELIA Ioversol (Optiray 320 100ml) 94 ml IV ONCE ONE Stop: 04/23/24 14:44 Last Admin: 04/23/24 14:39 Dose: 94 ml Documented By: CLARISA Imaging Data Radiologist's Impression: Abdomen/Pelvis CT 04/23/24 14:[address] WITH IV CONTRAST CT DOSE: 1542.56 mGy.cm HISTORY: sepsis recent prostate biopsy TECHNIQUE: Multiaxial CT images of the abdomen and pelvis were performed following the use of intravenous contrast. A dose lowering technique was utilized adhering to the principles of ALARA. COMPARISON STUDY: Abdomen and pelvis CT 04/20/2019. FINDINGS: There is a 3 cm bleb within the right middle lobe. Mild dependent changes seen at the lung bases. No pneumoperitoneum. No pneumatosis. No acute fractures. Small diverticulum suggested at the distal esophagus. Prior cholecystectomy. Mild hepatic steatosis. The main portal vein is patent. Stable 15 mm cystic lesion within the pancreatic head. The spleen and adrenal glands are unremarkable. Right renal cysts are again noted. The left kidney enhances normally. No hydronephrosis. Calcified plaque within the normal caliber abdominal aorta. No retroperitoneal or pelvic lymphadenopathy. No pelvic free fluid. The bladder is distended. The prostate gland is enlarged and demonstrates heterogeneous enhancement. There is fat stranding located between the prostate gland/seminal vesicles and rectum with mild anterior rectal wall thickening. This is likely due to the recent postbiopsy changes. A nonspecific prostatitis or proctitis also remains in the differential diagnosis. No loculated fluid collections to suggest an abscess. No pelvic hematoma identified. No dilated loops of bowel to suggest an obstruction. Colonic diverticulosis. No evidence for acute diverticulitis. Normal appendix. IMPRESSION: 1. There is fat stranding located between the prostate gland/seminal vesicles and rectum with mild anterior rectal wall thickening. This is likely due to the recent postbiopsy changes. A nonspecific prostatitis or proctitis also remains in the differential diagnosis. 2. The bladder is distended. Bladder outlet obstruction is not excluded. 3. No evidence for bowel obstruction. 4. No hydronephrosis. 5. Stable 15 mm cystic lesion within the pancreatic head. This is indeterminate but favors a side branch intraductal papillary mucinous neoplasm or serous cystadenoma. 6. Additional findings as described above. ACT 112: Negative or not required by law. Electronically signed by: Gustavo Stone M.D. 04/23/2024 4:02 PM Chest X-Ray 04/23/24 14:00 XR chest 1V portable CLINICAL HISTORY: Sepsis. COMPARISON STUDY: Chest radiograph December 01, 2022. FINDINGS: No pneumothorax or pleural effusion is present. There is slight elevation of the right hemidiaphragm. No evidence for pulmonary edema. Cardiomediastinal silhouette is stable. No consolidation to suggest pneumonia. IMPRESSION: No acute cardiopulmonary findings. No significant change in appearance of the chest. ACT 112: Negative or not required by law. Electronically signed by: Tarun West M.D. 04/23/2024 3:21 PM Discharge Plan Visit Data Chief Complaint: Confusion ED Provider: Enrique Waite Discharge Problem: Hypoxic, Sepsis, Hematuria Patient Disposition: Admitted As Inpatient Discharge Instructions Interventions: ED Discharge Assessment Last Done: 04/23/24 18:16 Discharge Problem: Sepsis Qualifiers: Sepsis type: sepsis due to unspecified organism Sepsis acute organ dysfunction status: unspecified Qualified Code(s): A41.9 - Sepsis, unspecified organism Hematuria Qualifiers: Hematuria type: unspecified type Qualified Code(s): R31.9 - Hematuria, unspecified
[2024-04-23] MEDS: cefTRIAXone SODIUM 2,000 MG/50 ML BAG IV STA (14:13)
[2024-04-23] MEDS: SODIUM CHLORIDE 0.9% 1,000 ML IV SCH ×2 (14:13→17:12)
[2024-04-23] MEDS: ACETAMINOPHEN 325 MG TAB PO STA (14:15)
[2024-04-23 14:31] LABS: iSTAT Hemoglobin 14.3 g/dl (14.0-18.0); iSTAT Ionized Calcium 1.15 mmol/l (1.12-1.32); iSTAT Potassium 3.7 mmol/L (3.3-5.0)
[2024-04-23] MEDS: OPTIRAY 320 100ml IV ONE (14:39)
[2024-04-23 14:48] LABS: Basophils # (auto) 0.05 K/uL (0.00-0.20); Basophils % (auto) 0.4 %; Eosinophils # (auto) 0.04 K/uL (0.00-0.50); Eosinophils % (auto) 0.3 %; Hematocrit (blood only) 42.8 % (42.0-52.0); Hemoglobin 14.6 g/dl (14.0-18.0); Immature Granulocytes # (auto) 0.05 K/uL (0.01-0.20); Immature Granulocytes % (auto) 0.4 %; Lymphocytes # (auto) 0.68 K/uL (1.20-3.40); Lymphocytes % (auto) 5.2 %; Mean Corpuscular Hemoglobin 30.2 pg (25.0-34.0); Mean Corpuscular Hgb Conc 34.1 g/dL (32.0-36.0); Mean Corpuscular Volume 88.6 fL (80.0-100.0); Mean Platelet Volume 10.4 fL (9.4-12.4); Monocytes # (auto) 0.66 K/uL (0.11-0.59); Monocytes % (auto) 5.1 %; Neutrophils # (auto) 11.52 K/uL (1.40-6.50); Neutrophils % (auto) 88.6 %; Platelet Count 139 K/uL (130-400); RDW Coefficient of Variation 12.7 % (11.5-14.5); RDW Standard Deviation 41.1 fL (36.4-46.3); Red Blood Count 4.83 M/uL (4.70-6.10)
[2024-04-23 14:53] LABS: Albumin Level 4.8 gm/dl (3.4-5.0); BUN Creatinine Ratio 14.7 (10-20); Bilirubin Direct 0.1 mg/dl (0-0.2); Bilirubin,Total 0.8 mg/dl (0.2-1.0); Calcium 9.9 mg/dl (8.6-10.3); Creatinine Clr Calc Pharmacy 70.9 ml/min; Est GFR (African American) 83.5 ml/min; Est GFR (Non-African American) 72.1 ml/min; Magnesium 1.7 mg/dl (1.7-2.4); Potassium 3.7 mmol/L (3.5-5.1); Total Protein 7.3 gm/dl (6.0-8.3)
[2024-04-23 14:59] LABS: Troponin I High Sensitivity 18.6 pg/ml (0-20)
[2024-04-23 15:06] LABS: INR 1.1 (0.9-1.1); Prothrombin Time 11.4 Seconds (9.0-12.0)
--- NOTE | 2024-04-23 15:22 | XRay Report ---
XR chest 1V portable CLINICAL HISTORY: Sepsis. COMPARISON STUDY: Chest radiograph December 01, 2022. FINDINGS: No pneumothorax or pleural effusion is present. There is slight elevation of the right george diaphragm. No evidence for pulmonary edema. Cardiomediastinal silhouette is stable. No consolidation to suggest pneumonia. IMPRESSION: No acute cardiopulmonary findings. No significant change in appearance of the chest. ACT 112: Negative or not required by law. Electronically signed by: Tarun West M.D. 04/23/2024 3:21 PM
[2024-04-23 16:03] LABS: Appearance Urine Cloudy (Clear)
--- NOTE | 2024-04-23 16:04 | CT Scan Report ---
ABDOMEN AND PELVIS CT WITH IV CONTRAST CT DOSE: 1542.56 mGy.cm HISTORY: sepsis recent prostate biopsy TECHNIQUE: Multiaxial CT images of the abdomen and pelvis were performed following the use of intrave nous contrast. A dose lowering technique was utilized adhering to the principles of ALARA. COMPARISON STUDY: Abdomen and pelvis CT 04/20/2019. FINDINGS: There is a 3 cm bleb within the right middle lobe. Mild dependent changes seen at the lung bases. No pneumoperitoneum. No pneumatosis. No acute fractures. Small diverticulum suggested at the d istal esophagus. Prior cholecystectomy. Mild hepatic steatosis. The main portal vein is patent. Stabl e 15 mm cystic lesion within the pancreatic head. The spleen and adrenal glands are unremarkable. Rig ht renal cysts are again noted. The left kidney enhances normally. No hydronephrosis. Calcified plaqu e within the normal caliber abdominal aorta. No retroperitoneal or pelvic lymphadenopathy. No pelvic free fluid. The bladder is distended. The prostate gland is enlarged and demonstrates heterogeneous e nhancement. There is fat stranding located between the prostate gland/seminal vesicles and rectum wit h mild anterior rectal wall thickening. This is likely due to the recent postbiopsy changes. A nonspe cific prostatitis or proctitis also remains in the differential diagnosis. No loculated fluid collect ions to suggest an abscess. No pelvic hematoma identified. No dilated loops of bowel to suggest an ob struction. Colonic diverticulosis. No evidence for acute diverticulitis. Normal appendix. IMPRESSION: 1. There is fat stranding located between the prostate gland/seminal vesicles and rectum with mild an terior rectal wall thickening. This is likely due to the recent postbiopsy changes. A nonspecific pro statitis or proctitis also remains in the differential diagnosis. 2. The bladder is distended. Bladder outlet obstruction is not excluded. 3. No evidence for bowel obstruction. 4. No hydronephrosis. 5. Stable 15 mm cystic lesion within the pancreatic head. This is indeterminate but favors a side [facility] intraductal papillary mucinous neoplasm or serous cystadenoma. 6. Additional findings as described above. ACT 112: Negative or not required by law. Electronically signed by: Gustavo Stone M.D. 04/23/2024 4:02 PM
[2024-04-23 16:06] LABS: Specific Gravity Urine 1.034 (1.000-1.030)
[2024-04-23 16:11] LABS: RBC Urine >20 /hpf (0-2)
[2024-04-23 16:12] LABS: Bacteria Urine None Seen (None Seen)
[2024-04-23 16:26] LABS: Appearance Urine Cloudy (Clear); Bacteria Urine Automated None Seen (None Seen); Bilirubin Urine Negative (Negative); Blood Urine 3+ (Negative); Cast Urine Automated 0-2 /lpf (0-2); Color Urine Orange; Epithelial Cell Urine Auto 0-2 /hpf (0-2); Glucose Urine UA Negative (Negative); Ketones Urine Negative (Negative); Leukocyte Esterase Urine Trace (Negative); Nitrite Urine Negative (Negative); Protein Urine 2+ (Negative); RBC Urine Automated >20 /hpf (0-2); Specific Gravity Urine 1.012 (1.000-1.030); Urobilinogen Urine Negative (Negative); WBC Urine Automated 0-5 /hpf (0-5)
--- NOTE | 2024-04-23 16:57 | History & Physical Report ---
Date of Service April 23, 2024 Assessment & Plan (1) Sepsis: Plan: Admit to [facility] telemetry on pulse oximetry Currently hemodynamically stable, stable on room air, and nontoxic-appearing Presented to the ED via EMS due to fever and altered mental status Patient meets sepsis criteria on arrival with temperature of 39 C, heart rate of 130, respiratory rate of 30, and source most likely being his urine Initial lactate of 2.6, down to 2.1 after 1 L NSS bolus Pro-Elmer elevated at 1.1 Patient underwent transrectal prostate biopsy this [facility] UA appears to be a likely source, chest x-ray negative for acute findings CT of the abdomen pelvis with IV contrast shows expected postprocedural changes along with bladder outlet obstruction prior to Jimenez catheter placement Status post 1 L NSS and a dose of ceftriaxone in the ED Will give an additional 1 L NSS bolus on admission to cover the sepsis fluid bolus of 1.9 L as he is without signs of volume overload and does not have a history of heart failure Will continue with ceftriaxone and add empiric Flagyl for the next 48 hours to cover anaerobic organisms until urine and blood cultures are complete Urology has been consulted to follow Bilateral FAMILIA stockings for DVT prophylaxis Heart healthy/DM type II diet AM CBC, CMP, mag, PT/INR (2) History of prostate biopsy: Plan: See sepsis plan Follow infectious workup Follow urology consult (3) Pre-diabetes: Plan: Monitor BSG ACHS goal is [id number] Hold metformin for now Start CF of 50 and CR of 15 ACHS Adjust regimen as needed (4) Paranoid schizophrenia: Plan: Currently alert, completely oriented, and without signs of paranoia, hallucinations, or delusions Patient confirmed he had his a.m. medications Continue home olanzapine and perphenazine Plan The patient was discussed with Dr. Lamas at time the admission History of Present Illness Chief Complaint: Altered mental status Primary Care Provider: Miles Louis, CHRIST, DIONI Chung is a 73-year-old male with a past medical history significant for schizophrenia, pre-diabetes, and hyperlipidemia who presented to the [facility] ED via EMS on 04/23/2024 due to fever and confusion after transrectal prostate biopsy this a.m. Per chart review, the patient underwent Transrectal ultrasound-guided biopsy of the prostate with Dr. Arevalo this morning due to elevated PSA level. Per the urology note from this morning, the patient tolerated the procedure well, there were no reported complications, and the patient was discharged home in his normal mental state. On arrival to the ED the patient was noted to be febrile at 39.2 Celsius, tachycardic at 134, tachypneic at 30, and hypoxic at 88% on room air. Labs were significant for a leukocytosis of 13 with neutrophil predominance of 11, anion gap of 12 with bicarb within normal limits, UA shows cloudy urine, 2+ protein, 3+ blood, trace leukocyte esterase, greater than 20 RBC, 1120 WBC, 35 epithelial cells, and negative for bacteria. Chest x-ray was read as negative for acute findings. CT of the abdomen pelvis with IV contrast was read as "There is fat stranding located between the prostate gland/seminal vesicles and rectum with mild anterior rectal wall thickening. This is likely due to the recent postbiopsy changes. A nonspecific prostatitis or proctitis also remains in the differential diagnosis. 2. The bladder is distended. Bladder outlet obstruction is not excluded. 3. No evidence for bowel obstruction. 4. No hydronephrosis. 5. Stable 15 mm cystic lesion within the pancreatic head. This is indeterminate but favors a side branch intraductal papillary mucinous neoplasm or serous cystadenoma. 6. Additional findings as described above.". Prior to admission the patient was given 650 mg p.o. Tylenol, 1 dose ceftriaxone, and 1 L NSS bolus. Patient was lying in bed in no acute distress at the time of the exam, he is currently alert and completely oriented and appears nontoxic. He confirms that he had his prostate biopsy this morning with Dr. Arevalo. States he felt a little "wobbly" after the procedure when discharged home. After arriving home he felt feverish and slightly confused, he called EMS as per recommendations per urology prior to discharge home with his fever and confusion. He currently feels improved compared to ED arrival. States that he had been taking the preoperative ciprofloxacin as prescribed by urology. When asked, he states that when he was having dysuria and hematuria prior to catheter placement in the ED. We discussed CODE STATUS, he is a full code and would want his brother Anton Pereira ([phone]) to make medical decisions for him if he cannot make them himself. I was able to call and speak with the patient's brother to update family of his current condition. They requested an update prior to discharge home so they can assist with discharge planning. Please refer to Dr. Lamas's attestation for any changes to the treatment plan Allergies Allergy/AdvReac Type Severity Reaction Status Date / Time metformin AdvReac Mild Diarrhea Uncoded 12/12/23 11:21 Home Medications Medication Instructions Recorded Confirmed Type olanzapine 15 mg tablet 15 mg PO BID 10/16/18 04/23/24 History aspirin 81 mg tablet,delayed 81 mg PO QAM 02/02/19 04/23/24 History release lorazepam 0.5 mg tablet 0.5 mg PO UD 09/25/19 04/23/24 History cholecalciferol (vitamin D3) 50 2,000 unit PO QAM 06/13/20 04/23/24 History mcg (2,000 unit) tablet perphenazine 16 mg tablet 16 mg PO QPM 10/24/20 04/23/24 History atorvastatin 20 mg tablet 20 mg PO QPM #90 tabs 11/29/23 04/23/24 Rx ciprofloxacin HCl 500 mg tablet 500 mg PO Q12H #6 tabs 04/10/24 04/23/24 Rx (Cipro) perphenazine 4 mg tablet 4 mg PO QPM 04/23/24 04/23/24 History Past Med/Surg History Problem List (Updated 04/23/24 @ 17:26 by Raul Espinoza PA-C) History of prostate biopsy Sepsis Elevated PSA Vitamin D deficiency (Acute) Paranoid schizophrenia (Acute) Hypercholesterolemia (Acute) Gastroesophageal reflux disease (Acute) Benign neoplasm of large intestine (Acute) Achilles tendon sprain (Acute) resolved Pre-diabetes (Chronic) Urinary urgency History of colon polyps Weakness (Acute) Medical History Achilles tendon sprain Anxiety Benign neoplasm of large intestine Diverticular disease Gastroesophageal reflux disease Heart murmur HLD (hyperlipidemia) Hypercholesterolemia Neck abscess Paranoid schizophrenia Pre-diabetes Shortness of breath Urinary urgency Vitamin D deficiency Surgical History History of colonoscopy with polypectomy S/P cataract extraction History of esophagogastroduodenoscopy (EGD) History of tonsillectomy History of bleeding peptic ulcer History of tooth extraction S/P laparoscopic cholecystectomy (04/21/19) Family History Grandmother Diabetes Coronary heart disease Uncle Diabetes Colonic polyp Father Throat cancer Brother Prostate cancer Mother Peritonitis Other No family history of adverse response to anesthesia No pertinent family history Denies family history of Ovarian cancer Breast cancer Social History (Updated 12/12/23 @ 11:07 by Sangeeta Johnson LPN) Smoking Status: Unknown if ever smoked Tobacco Type: Cigars Age Started Using Tobacco: 29; Age Quit Using Tobacco: 50; Second Hand Exposure: Yes (parents smoked/partner smoked); Do You Dip or Chew Tobacco: No; Hx Alcohol Use: No Hx Substance Use: No Preferred Language: Luxembourgish Communication Ability: Effective Visual Impairment: No Limitations Hearing Ability: Normal 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 Beliefs That Will Affect Care: None marital status: Single Current Living Situation: Alone Current Living Situation Comment: [address] current occupational status: retired current occupation: [employer]-retired Feels Safe at Home: Yes Childhood Exposure to Second-Hand Smoke: No Diet: diabetic and low salt caffeine: Yes during the past year weight has: remained stable Dental Care, Regularly: No Physical Activity Frequency: Daily Seatbelt Use: always Sunscreen Use: No Assistive Devices: Walker Physical Exam Physical Exam: Physical Exam: General: In no acute distress, stated age, ill appearing but non-toxic appearing HEENT: Normocephalic, atraumatic, no scleral icterus, pupils around round, symmetrical, and reactive to light, dry mucus membranes, trachea midline, no thyromegaly Chest/Pulm: No respiratory distress, symmetrical chest expansion, clear breath sounds throughout Cardiac: RRR, no murmurs noted Abdomen: Negative for ascites and bruising, normoactive bowel sounds, soft, non-tender to palpation throughout : Jimenez catheter currently in place, draining clear, red urine Musculoskeletal: Symmetrical and without signs of acute trauma, upper and lower extremities with full ROM, no atrophy, spasticity, or flaccidity Extremities: Radial, dorsalis pedis, and posterior tibial pulses are intact and symmetrical, no edema noted in the BL LE's Skin: Warm, dry, no rashes , lesions, or scars noted Neuro: Alert and oriented to person, place, month, year, and president, no focal defects, no tremors noted Psych: No acute distress, calm and cooperative during the exam Results & Data Results & Data Vital Signs (Past 12 Hours) Vital Signs Temp Pulse Resp BP Pulse Ox O2 Del Method O2 Flow Rate 04/23/24 16:15 99 H 24 95 04/23/24 16:06 101 H 30 H 94 04/23/24 16:00 132/72 04/23/24 15:54 100 H 20 93 04/23/24 15:42 104 H 22 04/23/24 15:30 136/64 04/23/24 15:27 139/75 04/23/24 15:06 17 04/23/24 14:30 159/79 H 04/23/24 14:21 118 H 22 91 04/23/24 14:14 123 H 04/23/24 14:02 149/76 H 04/23/24 14:00 112 H 20 94 Nasal Cannula 2 04/23/24 14:00 123 H 20 92 04/23/24 13:47 88 L Nasal Cannula 2 04/23/24 13:47 39.2 C H 134 H 16 149/76 H 88 L Room Air Laboratory Results Abnormal lab results 04/23/24 04/23/24 04/23/24 Range/Units 14:10 14:16 16:20 WBC 13.00 H (4.8-10.8) K/ul Neut # (Auto) 11.52 H (1.40-6.50) K/uL Lymph # (Auto) 0.68 L (1.20-3.40) K/uL Stark # (Auto) 0.66 H (0.11-0.59) K/uL POC Total CO2 22 L (24-31) mmol/L Anion Gap 12 H (3-11) Glucose 107 H (70-99(Fasting)) mg/dl POC Glucose (other) 106 H (70-99) mg/dl Lactate 2.6 H* 2.1 H* (0.4-2.0) mmol/L Procalcitonin 1.10 H (0-0.5) ng/ml Urine Appearance (Clear) Ur Specific [place] (1.000-1.030) Urine Protein (Negative) Urine Blood (Negative) Ur Leukocyte Esterase (Negative) Urine RBC (Auto) (0-2) /hpf Urine RBC (0-2) /hpf Urine WBC (0-5) /hpf Ur Epithelial Cells (0-2) /hpf 04/23/24 04/23/24 Range/Units Unknown Unknown WBC (4.8-10.8) K/ul Neut # (Auto) (1.40-6.50) K/uL Lymph # (Auto) (1.20-3.40) K/uL Stark # (Auto) (0.11-0.59) K/uL POC Total CO2 (24-31) mmol/L Anion Gap (3-11) Glucose (70-99(Fasting)) mg/dl POC Glucose (other) (70-99) mg/dl Lactate (0.4-2.0) mmol/L Procalcitonin (0-0.5) ng/ml Urine Appearance Cloudy A Cloudy A (Clear) Ur Specific [place] 1.034 H (1.000-1.030) Urine Protein 2+ H (Negative) Urine Blood 3+ H (Negative) Ur Leukocyte Esterase Trace H (Negative) Urine RBC (Auto) >20 H (0-2) /hpf Urine RBC >20 H (0-2) /hpf Urine WBC 11-20 H (0-5) /hpf Ur Epithelial Cells 3-5 H (0-2) /hpf Diagnostic Findings Abdomen/Pelvis CT 04/23/24 14:[address] WITH IV CONTRAST CT DOSE: 1542.56 mGy.cm HISTORY: sepsis recent prostate biopsy TECHNIQUE: Multiaxial CT images of the abdomen and pelvis were performed following the use of intravenous contrast. A dose lowering technique was utilized adhering to the principles of ALARA. COMPARISON STUDY: Abdomen and pelvis CT 04/20/2019. FINDINGS: There is a 3 cm bleb within the right middle lobe. Mild dependent changes seen at the lung bases. No pneumoperitoneum. No pneumatosis. No acute fractures. Small diverticulum suggested at the distal esophagus. Prior cholecystectomy. Mild hepatic steatosis. The main portal vein is patent. Stable 15 mm cystic lesion within the pancreatic head. The spleen and adrenal glands are unremarkable. Right renal cysts are again noted. The left kidney enhances normally. No hydronephrosis. Calcified plaque within the normal caliber abdominal aorta. No retroperitoneal or pelvic lymphadenopathy. No pelvic free fluid. The bladder is distended. The prostate gland is enlarged and demonstrates heterogeneous enhancement. There is fat stranding located between the prostate gland/seminal vesicles and rectum with mild anterior rectal wall thickening. This is likely due to the recent postbiopsy changes. A nonspecific prostatitis or proctitis also remains in the differential diagnosis. No loculated fluid collections to suggest an abscess. No pelvic hematoma identified. No dilated loops of bowel to suggest an obstruction. Colonic diverticulosis. No evidence for acute diverticulitis. Normal appendix. IMPRESSION: 1. There is fat stranding located between the prostate gland/seminal vesicles and rectum with mild anterior rectal wall thickening. This is likely due to the recent postbiopsy changes. A nonspecific prostatitis or proctitis also remains in the differential diagnosis. 2. The bladder is distended. Bladder outlet obstruction is not excluded. 3. No evidence for bowel obstruction. 4. No hydronephrosis. 5. Stable 15 mm cystic lesion within the pancreatic head. This is indeterminate but favors a side branch intraductal papillary mucinous neoplasm or serous cystadenoma. 6. Additional findings as described above. ACT 112: Negative or not required by law. Electronically signed by: Gustavo Stone M.D. 04/23/2024 4:02 PM Chest X-Ray 04/23/24 14:00 XR chest 1V portable CLINICAL HISTORY: Sepsis. COMPARISON STUDY: Chest radiograph December 01, 2022. FINDINGS: No pneumothorax or pleural effusion is present. There is slight elevation of the right hemidiaphragm. No evidence for pulmonary edema. Cardiomediastinal silhouette is stable. No consolidation to suggest pneumonia. IMPRESSION: No acute cardiopulmonary findings. No significant change in appearance of the chest. ACT 112: Negative or not required by law. Electronically signed by: Tarun West M.D. 04/23/2024 3:21 PM ECG Additional Comments: Sinus tachycardia, Left anterior fascicular block, Marked ST abnormality, possible inferior subendocardial injury, Abnormal ECG Code Status & VTE Plan Code Status Full code VTE Prophylaxis Plan VTE Prophylaxis will be ordered: Yes Supervising Physician Co-Signing Physician Notes Patient seen and examined, chart reviewed, case discussed with Raul Espinoza PA-C and I agree with the assessment and plan as above except as otherwise noted Labs and images reviewed Chung is a 73-year-old male who presents with fever, hypotension, confusion, tachycardia after a transrectal prostate biopsy. Suspect prostate associated Gram negative urosepsis. BP improved following fluids. Imaging shows fat str anding between prostate gland/seminal vesicles, proctitis within the differential. Agree with admission on Rocephin/Flagyl. Urology consulted. At bedside assessment is nontoxic-appearing. He is seen with his brother present. Had some left lower quadrant abdominal tenderness with no rebound or guarding. No chills/rigors, but feels generally poor. Jimenez in place draining pink-tinged urine . Agree with above. PG Care Time/CCT Total # of Minutes Spent Total Time Spent with Patient: Total time spent is greater than 50% in coordination of care (as documented) at patient's floor/unit and/or counseling patient: Coding [place] [address] INT INP/OBS CARE 3/75MIN Patient Type Established Medical Decision Making High Complexity Diagnoses Sepsis A41.9 History of prostate biopsy Z98.890 Pre-diabetes R73.03 Paranoid schizophrenia F20.0
[2024-04-23] MEDS ORDERED: ACETAMINOPHEN 325 MG TAB PO PRN (16:58)
--- NOTE | 2024-04-23 17:05 | Electrocardiogram Report ---
Test Reason : Blood Pressure : */* mmHG Vent. Rate : 126 BPM Atrial Rate : 126 BPM P-R Int : 160 ms QRS Dur : 86 ms QT Int : 300 ms P-R-T Axes : 64 -69 68 degrees QTcB Int : 434 ms Sinus tachycardia Left anterior fascicular block Marked ST abnormality, possible inferior subendocardial injury Abnormal ECG Confirmed by Byron Arreola ([id number]) on 04/23/2024 5:05:16 PM Referred By: REFERRED SELF Confirmed By: Byron Arreola
[2024-04-23] MEDS: metroNIDAZOLE 500 MG/100 ML BAG IV STA (17:12)
[2024-04-23] MEDS ORDERED: DEXTROSE 50% 50 ML SYRINGE IV PRN (17:20)
[2024-04-23] MEDS ORDERED: GLUCOSE 10 TAB/TUBE PO PRN (17:20)
[2024-04-23] MEDS ORDERED: CARBOHYDRATES FOR HYPOGLYCEMIA PO PRN (17:20)
[2024-04-23] MEDS ORDERED: GLUCAGON FOR INJ 1 MG VIAL SQ PRN (17:20)
[2024-04-23] MEDS ORDERED: GLUCOSE 40% GEL 15 GM TUBE PO PRN (17:20)
--- NOTE | 2024-04-23 17:51 | Urology Consultation ---
Date of Consultation April 23, 2024 Assessment & Plan (1) Sepsis: (2) History of prostate biopsy: Plan 73-year-old male status post prostate needle biopsy today who presented with confusion and febrile with initial tachycardia and tachypnea. Patient has stabilized from a vital perspective and reports feeling better now Agree with Jimenez catheter as he was in retention and bladder was fairly distended on CT. Hematuria is not unexpected after prostate needle biopsy. He can either have a void trial depending on duration of hospitalization or could have it removed at scheduled follow-up next week for pathology review Agree with broad-spectrum antibiotics. Follow-up urine and blood cultures. Discussed expected hospital course with patient and that he likely will have positive blood cultures and will need to be in the hospital until we can tailor outpatient antibiotics Urology to follow. Patient can likely keep follow-up appointment with Dr. Arevalo for path review. History of Present Illness History of Present Illness 73-year-old male with a history of an elevated PSA who underwent an ultrasound- guided prostate needle biopsy earlier this morning. Patient was treated with antibiotics however developed altered mental status and was febrile at home. Vitals in the ED showed mild tachycardia that resolved when I saw him. Initially was tachypneic but this improved as well temperature was 39.2 earlier this afternoon. Labs showed a leukocytosis of 13, lactate of 2.1, creatinine 1.0 and a urinalysis that had no bacteria but had white and red blood cells. A CT scan of the abdomen pelvis was performed which was largely normal except some stranding around the prostate and seminal vesicles which is expected after a biopsy. Patient was treated with ceftriaxone. Bladder was distended on CT scan he was having difficulty voiding so Jimenez catheter was placed. Allergies Allergy/AdvReac Type Severity Reaction Status Date / Time metformin AdvReac Mild Diarrhea Uncoded 12/12/23 11:21 Home Medications Medication Instructions Recorded Confirmed Type olanzapine 15 mg tablet 15 mg PO BID 10/16/18 04/23/24 History aspirin 81 mg tablet,delayed 81 mg PO QAM 02/02/19 04/23/24 History release lorazepam 0.5 mg tablet 0.5 mg PO UD 09/25/19 04/23/24 History cholecalciferol (vitamin D3) 50 2,000 unit PO QAM 06/13/20 04/23/24 History mcg (2,000 unit) tablet perphenazine 16 mg tablet 16 mg PO QPM 10/24/20 04/23/24 History atorvastatin 20 mg tablet 20 mg PO QPM #90 tabs 11/29/23 04/23/24 Rx ciprofloxacin HCl 500 mg tablet 500 mg PO Q12H #6 tabs 04/10/24 04/23/24 Rx (Cipro) perphenazine 4 mg tablet 4 mg PO QPM 04/23/24 04/23/24 History Patient History Medical History Achilles tendon sprain Anxiety Benign neoplasm of large intestine Diverticular disease Gastroesophageal reflux disease Heart murmur HLD (hyperlipidemia) Hypercholesterolemia Neck abscess Paranoid schizophrenia Pre-diabetes Shortness of breath Urinary urgency Vitamin D deficiency Surgical History History of colonoscopy with polypectomy S/P cataract extraction History of esophagogastroduodenoscopy (EGD) History of tonsillectomy History of bleeding peptic ulcer History of tooth extraction S/P laparoscopic cholecystectomy (04/21/19) Family History Grandmother Diabetes Coronary heart disease Uncle Diabetes Colonic polyp Father Throat cancer Brother Prostate cancer Mother Peritonitis Other No family history of adverse response to anesthesia No pertinent family history Denies family history of Ovarian cancer Breast cancer Social History (Updated 12/12/23 @ 11:07 by Sangeeta Johnson LPN) Smoking Status: Unknown if ever smoked Tobacco Type: Cigars Age Started Using Tobacco: 29; Age Quit Using Tobacco: 50; Second Hand Exposure: Yes (parents smoked/partner smoked); Do You Dip or Chew Tobacco: No; Hx Alcohol Use: No Hx Substance Use: No Preferred Language: Armenian Communication Ability: Effective Visual Impairment: No Limitations Hearing Ability: Normal Side Stitcher Required: No Beliefs That Will Affect Care: None marital status: Single Current Living Situation: Alone Current Living Situation Comment: [address] current occupational status: retired current occupation: [employer]-retired Feels Safe at Home: Yes Childhood Exposure to Second-Hand Smoke: No Diet: diabetic and low salt caffeine: Yes during the past year weight has: remained stable Dental Care, Regularly: No Physical Activity Frequency: Daily Seatbelt Use: always Sunscreen Use: No Assistive Devices: Walker Physical Exam Physical Exam: General: Alert and oriented, no acute distress HEENT: Normocephalic, mucous membranes moist Pulmonary: Nonlabored respirations Abdomen: Nondistended : Jimenez catheter draining light pink urine. Extremities: Moves all 4 spontaneously Neuro: No gross deficits Skin: Warm, dry, no rashes noted Results & Data Vital Signs (Past 12 Hours) Vital Signs Temp Pulse Resp BP Pulse Ox O2 Del Method O2 Flow Rate 04/23/24 17:42 94 H 04/23/24 17:36 93 H 23 04/23/24 17:30 119/65 04/23/24 17:12 97 H 22 04/23/24 17:09 98 H 23 122/69 93 04/23/24 16:45 96 H 22 95 04/23/24 16:33 98 H 30 H 96 04/23/24 16:30 127/71 04/23/24 16:15 99 H 24 95 04/23/24 16:06 101 H 30 H 94 04/23/24 16:00 132/72 04/23/24 15:54 100 H 20 93 04/23/24 15:42 104 H 22 04/23/24 15:30 136/64 04/23/24 15:27 139/75 04/23/24 15:06 17 04/23/24 14:30 159/79 H 04/23/24 14:21 118 H 22 91 04/23/24 14:14 123 H 04/23/24 14:02 149/76 H 04/23/24 14:00 112 H 20 94 Nasal Cannula 2 04/23/24 14:00 123 H 20 92 04/23/24 13:47 88 L Nasal Cannula 2 04/23/24 13:47 39.2 C H 134 H 16 149/76 H 88 L Room Air PG Care Time/CCT Total # of Minutes Spent Total Time Spent with Patient: Total time spent is greater than 50% in coordination of care (as documented) at patient's floor/unit and/or counseling patient: Coding Level of Care Code 55607 INT INP/OBS CARE 2/55MIN Diagnoses Sepsis A41.9 History of prostate biopsy Z98.890
[2024-04-23] MEDS: INSULIN ASPART PER UNIT CHARGE SC SCH (19:46)
[2024-04-23] MEDS: ATORVASTATIN 20 MG TAB PO SCH (21:06)
[2024-04-23] MEDS: OLANZapine 5 MG TABLET PO SCH (21:06)
[2024-04-23] MEDS: PERPHENAZINE 4 MG TAB PO SCH (21:07)
[2024-04-23] MEDS: LORazepam 0.5 MG TAB PO PRN (22:16)
[2024-04-24] MEDS: metroNIDAZOLE 500 MG/100 ML BAG IV SCH (00:06)
[2024-04-24 06:43] LABS: Alanine Aminotransferase 16 U/L (7-52); Albumin Globulin Ratio 1.7 (0.9-2); Albumin Level 3.9 gm/dl (3.4-5.0); Alkaline Phosphatase 36 U/L (34-104); Anion Gap 6 (3-11); BUN Creatinine Ratio 16.1 (10-20); Bilirubin,Total 0.5 mg/dl (0.2-1.0); Blood Urea Nitrogen 14 mg/dl (6-23); Calcium 8.6 mg/dl (8.6-10.3); Carbon Dioxide 24 mmol/L (21-32); Chloride 108 mmol/L (98-107); Creatinine Clr Calc Pharmacy 81.6 ml/min; Est GFR (African American) 98.5 ml/min; Globulin 2.3 gm/dl (2.5-4.0); Glucose 107 mg/dl (70-99(Fasting)); Magnesium 2.1 mg/dl (1.7-2.4); Sodium 138 mmol/L (136-145); Total Protein 6.2 gm/dl (6.0-8.3)
[2024-04-24 06:58] LABS: INR 1.1 (0.9-1.1); Prothrombin Time 12.2 Seconds (9.0-12.0)
[2024-04-24 07:01] LABS: Basophils # (auto) 0.07 K/uL (0.00-0.20); Basophils % (auto) 0.5 %; Eosinophils % (auto) 0.8 %; Hematocrit (blood only) 39.6 % (42.0-52.0); Hemoglobin 13.4 g/dl (14.0-18.0); Immature Granulocytes # (auto) 0.07 K/uL (0.01-0.20); Immature Granulocytes % (auto) 0.5 %; Lymphocytes # (auto) 0.84 K/uL (1.20-3.40); Lymphocytes % (auto) 6.5 %; Mean Corpuscular Hgb Conc 33.8 g/dL (32.0-36.0); Mean Corpuscular Volume 88.6 fL (80.0-100.0); Mean Platelet Volume 10.5 fL (9.4-12.4); Monocytes # (auto) 0.92 K/uL (0.11-0.59); Monocytes % (auto) 7.1 %; Neutrophils # (auto) 11.01 K/uL (1.40-6.50); Neutrophils % (auto) 84.6 %; Platelet Count 124 K/uL (130-400); Platelet Estimate Decreased (Normal); RDW Coefficient of Variation 13.1 % (11.5-14.5); RDW Standard Deviation 42.6 fL (36.4-46.3); Red Blood Count 4.47 M/uL (4.70-6.10); White Blood Count 13.01 K/ul (4.8-10.8)
[2024-04-24] MEDS: ASPIRIN 81 MG ECTAB PO SCH (08:02)
[2024-04-24 09:36] LABS: Potassium 3.8 mmol/L (3.5-5.1)
--- NOTE | 2024-04-24 10:05 | Urology Progress Note ---
Date of Service April 24, 2024 Assessment & Plan (1) Sepsis: (2) History of prostate biopsy: Plan 73-year-old male status post prostate needle biopsy today who presented with confusion and febrile with initial tachycardia and tachypnea. Subjectively feeling better today. Afebrile, vitals stable. Labs reviewed - WBC 13.01, Creatinine 0.87 Urine and blood cultures pending. Jimenez draining appropriately. He can either have a void trial depending on duration of hospitalization or could have it removed at scheduled follow-up next week for pathology review. Agree with broad-spectrum antibiotics and tailor as culture data becomes available. Continue supportive care Discussed expected hospital course with patient and that he will need to be in the hospital until we can tailor outpatient antibiotics. Urology to follow. Patient can likely keep follow-up appointment with Dr. Arevalo for path review. Admission and Anticipated Discharge Date Admission Date: April 23, 2024 Subjective Pt seen at bedside this AM. Awake, resting in bed on arrival. No acute distress. Overall feeling better today. Jimenez draining yellow urine. He denies fever, chills, nausea, vomiting. No reported pain at present. Review of Systems Constitutional: as per Subjective / HPI Gastrointestinal: as per Subjective / HPI Genitourinary: + as per Subjective / HPI Physical Exam Constitutional: no acute distress Respiratory: no respiratory distress and no labored breathing Neurologic: awake Psychiatric: A+Ox3, euthymic affect Genitourinary: Jimenez intact Results & Data Vital Signs (Past 12 Hours) Vital Signs Temp Pulse Resp BP Pulse Ox O2 Del Method 04/24/24 07:22 36.9 C 77 18 127/72 91 Room Air 04/24/24 02:39 36.8 C 81 18 110/68 94 Room Air 04/23/24 22:40 36.7 C 75 18 105/61 94 Room Air PG Care Time/CCT Total # of Minutes Spent Total Time Spent with Patient: Total time spent is greater than 50% in coordination of care (as documented) at patient's floor/unit and/or counseling patient: Coding Level of Care Code 69609 SUB INP/OBS CARE 2/35MIN Diagnoses Sepsis A41.9 Sepsis acute organ dysfunction status: unspecified Sepsis type: sepsis due to unspecified organism History of prostate biopsy Z98.890 (1) Sepsis Sepsis acute organ dysfunction status: unspecified Sepsis type: sepsis due to unspecified organism Qualified Code(s): A41.9 - Sepsis, unspecified organism
--- NOTE | 2024-04-24 12:48 | Hospitalist Progress Note ---
Date of Service April 24, 2024 Assessment & Plan (1) Sepsis: Plan: Admitted with sepsis of urinary source post transrectal prostate biopsy Significantly improved 04/24/2024. Continue Rocephin Blood cultures with no growth to date, patient was having chills/aches prior to admission. UCx pending Jimenez catheter continue due to acute urinary retention. Urology following. Improving may have inpatient voiding trial versus outpatient urology follow-up depending on progression Continue Rocephin/Flagyl at this time Abdominal pain is resolved, abdomen nontender on assessment 04/24 (2) History of prostate biopsy: Plan: See sepsis plan Urology following (3) Pre-diabetes: Plan: Monitor BSG ACHS goal is [id number] Hold metformin Start CF of 50 and CR of 15 ACHS Adjust regimen as needed (4) Paranoid schizophrenia: Plan: Currently alert, completely oriented, and without signs of paranoia, hallucinations, or delusions Continue home olanzapine and perphenazine Admission and Anticipated Discharge Date Admission Date: April 23, 2024 Subjective Seen at the bedside. Feels significantly improved. No fevers or chills overnight. Lower quadrant abdominal pain has resolved. Lungs are clear, no chest pain, chest pressure at bedside. Jimenez was previously draining blood-tinged urine, is now yellow and without blood. Physical Exam Physical Exam: General: A&Ox3. NAD. Cooperative. HEENT: Atraumatic, normocephalic. Pulm: CTAB A&P. -wheezes, -rales, -rhonchi. Symmetrical chest rise. No increased work of breathing. No respiratory distress. Cardiac: RRR, -mrg. Radial pulses intact and symmetrical. Abdominal: Nontender, nondistended, soft. BS present. : Jimenez draining yellow urine, no blood Results & Data Results & Data Vital Signs (Past 12 Hours) Vital Signs Temp Pulse Pulse Resp BP Pulse Ox O2 Del Method 04/24/24 11:22 36.7 C 82 18 137/78 93 Room Air 04/24/24 10:48 Room Air 04/24/24 09:56 82 04/24/24 07:22 36.9 C 77 18 127/72 91 Room Air 04/24/24 02:39 36.8 C 81 18 110/68 94 Room Air PG Care Time/CCT Total # of Minutes Spent Total Time Spent with Patient: Total time spent is greater than 50% in coordination of care (as documented) at patient's floor/unit and/or counseling patient: Coding Level of Care Code 99470 SUB INP/OBS CARE 350MIN Diagnoses Sepsis A41.9 History of prostate biopsy Z98.890 Pre-diabetes R73.03 Paranoid schizophrenia F20.0
[2024-04-24] MEDS: cefTRIAXone SODIUM 2,000 MG/50 ML BAG IV SCH (15:28)
--- NOTE | 2024-04-25 07:48 | Urology Progress Note ---
Date of Service April 25, 2024 Assessment & Plan (1) Sepsis: (2) History of prostate biopsy: Plan 73-year-old male status post prostate needle biopsy today who presented with confusion and febrile with initial tachycardia and tachypnea. Afebrile, vitals stable. Labs reviewed - WBC 13-11 today and normal renal function. Urine and blood cultures preliminary no growth, await final. Jimenez draining appropriately - urine is clear yellow. He can either have a void trial depending on duration of hospitalization or could have it removed at scheduled follow-up next week for pathology review. Agree with broad-spectrum antibiotics and tailor as culture data becomes av ailable. Continue supportive care Discussed expected hospital course with patient and that he will need to be in the hospital until we can tailor outpatient antibiotics. Plan for outpatient follow-up appointment as scheduled with Dr. Arevalo for path review. Urology to follow. Admission and Anticipated Discharge Date Admission Date: April 23, 2024 Subjective Pt seen at bedside this AM. Awake, resting in bed on arrival. No acute distress. Feeling well overall. Reports some fatigue. Jimenez draining yellow urine. He denies fever, chills, nausea, vomiting. No reported pain at present. Review of Systems Constitutional: as per Subjective / HPI Gastrointestinal: as per Subjective / HPI Genitourinary: + as per Subjective / HPI Physical Exam Constitutional: no acute distress Respiratory: no respiratory distress and no labored breathing Neurologic: awake Psychiatric: A+Ox3, euthymic affect Genitourinary: Jimenez intact Results & Data Vital Signs (Past 12 Hours) Vital Signs Temp Pulse Pulse Resp BP Pulse Ox O2 Del Method 04/25/24 07:34 37.0 C 75 18 159/91 H 94 Room Air 04/25/24 07:13 81 04/25/24 03:39 36.5 C 78 18 149/79 H 92 Room Air 04/25/24 00:46 80 04/25/24 00:12 36.7 C 83 18 146/77 H 94 Room Air 04/24/24 20:05 36.7 C 81 18 132/73 92 Room Air PG Care Time/CCT Total # of Minutes Spent Total Time Spent with Patient: Total time spent is greater than 50% in coordination of care (as documented) at patient's floor/unit and/or counseling patient: Coding Level of Care Code 75098 SUB INP/OBS CARE 2/35MIN Diagnoses Sepsis A41.9 Sepsis acute organ dysfunction status: unspecified Sepsis type: sepsis due to unspecified organism History of prostate biopsy Z98.890 (1) Sepsis Sepsis acute organ dysfunction status: unspecified Sepsis type: sepsis due to unspecified organism Qualified Code(s): A41.9 - Sepsis, unspecified organism
[2024-04-25 08:36] LABS: Albumin Globulin Ratio 1.4 (0.9-2); BUN Creatinine Ratio 14.6 (10-20); Bilirubin,Total 0.6 mg/dl (0.2-1.0); Calcium 8.7 mg/dl (8.6-10.3); Creatinine Clr Calc Pharmacy 86.3 ml/min; Est GFR (Non-African American) 87.1 ml/min; Globulin 2.8 gm/dl (2.5-4.0); Magnesium 2.2 mg/dl (1.7-2.4); Total Protein 6.8 gm/dl (6.0-8.3)
[2024-04-25 08:48] LABS: INR 1.1 (0.9-1.1); Prothrombin Time 11.7 Seconds (9.0-12.0)
[2024-04-25 09:00] LABS: Hematocrit (blood only) 42.3 % (42.0-52.0); Hemoglobin 14.1 g/dl (14.0-18.0); Mean Corpuscular Hemoglobin 29.7 pg (25.0-34.0); Mean Corpuscular Hgb Conc 33.3 g/dL (32.0-36.0); Mean Corpuscular Volume 89.1 fL (80.0-100.0); Mean Platelet Volume 10.6 fL (9.4-12.4); Platelet Count 115 K/uL (130-400); RDW Standard Deviation 42.3 fL (36.4-46.3); Red Blood Count 4.75 M/uL (4.70-6.10); White Blood Count 11.17 K/ul (4.8-10.8)
[2024-04-25 09:01] LABS: Basophils # (auto) 0.05 K/uL (0.00-0.20); Basophils % (auto) 0.4 %; Eosinophils % (auto) 1.8 %; Immature Granulocytes # (auto) 0.06 K/uL (0.01-0.20); Immature Granulocytes % (auto) 0.5 %; Lymphocytes # (auto) 1.27 K/uL (1.20-3.40); Lymphocytes % (auto) 11.4 %; Monocytes # (auto) 0.81 K/uL (0.11-0.59); Monocytes % (auto) 7.3 %; Neutrophils # (auto) 8.78 K/uL (1.40-6.50); Neutrophils % (auto) 78.6 %; Platelet Estimate Decreased (Normal)
--- NOTE | 2024-04-25 15:35 | Hospitalist Progress Note ---
Date of Service April 25, 2024 Assessment & Plan (1) Sepsis: Plan: Admitted with sepsis of urinary source post transrectal prostate biopsy Significantly improved 04/24/2024. Continue Rocephin Blood cultures with no growth to date, patient was having chills/aches prior to admission. UCx pending Solomon catheter continue due to acute urinary retention. Urology following. Improving may have inpatient voiding trial versus outpatient urology follow-up depending on progression Continue Rocephin/Flagyl at this time Abdominal pain is resolved, abdomen nontender on assessment 04/24 - solomon removal trial (2) History of prostate biopsy: Plan: See sepsis plan Urology following (3) Pre-diabetes: Plan: Monitor BSG ACHS goal is [id number] Hold metformin Start CF of 50 and CR of 15 ACHS Adjust regimen as needed (4) Paranoid schizophrenia: Plan: Currently alert, completely oriented, and without signs of paranoia, hallucinations, or delusions Continue home olanzapine and perphenazine Admission and Anticipated Discharge Date Admission Date: April 23, 2024 Subjective patient is comfortable, denies fever, chills, no pain, he is hoping to get rid of solomon cath before discharge Review of Systems Review of Systems: All systems reviewed & are unremarkable except as noted in Subjective Physical Exam Physical Exam: head atraumatic neck supple chest CTA b/l heart S1S2 regular abdomen soft, NT, ND, BS present extremities no edema neuro AAO times 3 Results & Data Results & Data Vital Signs (Past 12 Hours) Vital Signs Temp Pulse Pulse Resp BP Pulse Ox O2 Del Method 04/25/24 15:26 36.7 C 75 18 130/75 92 Room Air 04/25/24 11:11 36.7 C 77 18 133/77 93 Room Air 04/25/24 10:43 Room Air 04/25/24 07:34 37.0 C 75 18 159/91 H 94 Room Air 04/25/24 07:13 81 04/25/24 03:39 36.5 C 78 18 149/79 H 92 Room Air PG Care Time/CCT Total # of Minutes Spent Total Time Spent with Patient: Total time spent is greater than 50% in coordination of care (as documented) at patient's floor/unit and/or counseling patient: Coding Level of Care Code 03885 SUB INP/OBS CARE 2/35MIN Diagnoses Sepsis A41.9 History of prostate biopsy Z98.890 Pre-diabetes R73.03 Paranoid schizophrenia F20.0
[2024-04-26 02:44] LABS: A calco-baum cmplx NotReported Not Detected (NotDetected); Bact fragilis Not Reported Not Detected (NotDetected); Blood Culture Id Panel PCR Panel Negative (NotDetected); C auris Not Reported Not Detected (NotDetected); Calbicans Not Reported Not Detected (NotDetected); Candida glabrata Not Reported Not Detected (NotDetected); Candida krusei Not Reported Not Detected (NotDetected); Cneoformans/gatti Not Reported Not Detected (NotDetected); Cparapsilosis Not Reported Not Detected (NotDetected); E cloacae compx Not Reported Not Detected (NotDetected); Efaecalis Not Reported Not Detected (NotDetected); Efaecium Not Reported Not Detected (NotDetected); Enterobacterales Not Reported Not Detected (NotDetected); Escherichia coli Not Reported Not Detected (NotDetected); H influenzae Not Reported Not Detected (NotDetected); K aerogenes Not Reported Not Detected (NotDetected); Koxytoca Not Reported Not Detected (NotDetected); Kpneumoniae grp Not Reported Not Detected (NotDetected); Lmonocyt Not Reported Not Detected (NotDetected); N meningitidis Not Reported Not Detected (NotDetected); P aeruginosa Not Reported Not Detected (NotDetected); Proteus spp Not Reported Not Detected (NotDetected); Salmonella spp Not Reported Not Detected (NotDetected); Staph lugdunensis Not Reported Not Detected (NotDetected); Staph spp. Not Reported Not Detected (NotDetected); Staphaureus Not Reported Not Detected (NotDetected); Staphepi Not Reported Not Detected (NotDetected); Stenmaltophilia Not Reported Not Detected (NotDetected); Strep agal(GrpB) Not Reported Not Detected (NotDetected); Strep pneum Not Reported Not Detected (NotDetected); Strep pyog (GrpA) Not Reported Not Detected (NotDetected); Strep spp Not Reported Not Detected (NotDetected)
[2024-04-26 07:02] LABS: Basophils # (auto) 0.07 K/uL (0.00-0.20); Basophils % (auto) 0.9 %; Eosinophils # (auto) 0.45 K/uL (0.00-0.50); Eosinophils % (auto) 5.6 %; Hematocrit (blood only) 39.3 % (42.0-52.0); Hemoglobin 13.2 g/dl (14.0-18.0); Immature Granulocytes # (auto) 0.05 K/uL (0.01-0.20); Immature Granulocytes % (auto) 0.6 %; Lymphocytes # (auto) 1.42 K/uL (1.20-3.40); Lymphocytes % (auto) 17.6 %; Mean Corpuscular Hemoglobin 30.1 pg (25.0-34.0); Mean Corpuscular Hgb Conc 33.6 g/dL (32.0-36.0); Mean Corpuscular Volume 89.5 fL (80.0-100.0); Mean Platelet Volume 10.5 fL (9.4-12.4); Monocytes # (auto) 0.68 K/uL (0.11-0.59); Monocytes % (auto) 8.4 %; Neutrophils % (auto) 66.9 %; Platelet Count 134 K/uL (130-400); RDW Coefficient of Variation 12.9 % (11.5-14.5); RDW Standard Deviation 42.3 fL (36.4-46.3); Red Blood Count 4.39 M/uL (4.70-6.10); White Blood Count 8.07 K/ul (4.8-10.8)
[2024-04-26 07:21] LABS: INR 1.1 (0.9-1.1); Prothrombin Time 11.4 Seconds (9.0-12.0)
[2024-04-26 07:27] LABS: Albumin Globulin Ratio 1.4 (0.9-2); Albumin Level 3.7 gm/dl (3.4-5.0); BUN Creatinine Ratio 17.1 (10-20); Bilirubin,Total 0.4 mg/dl (0.2-1.0); Calcium 8.4 mg/dl (8.6-10.3); Creatinine Clr Calc Pharmacy 93.1 ml/min; Est GFR (African American) 104.2 ml/min; Est GFR (Non-African American) 89.9 ml/min; Globulin 2.6 gm/dl (2.5-4.0); Magnesium 2.3 mg/dl (1.7-2.4); Potassium 3.9 mmol/L (3.5-5.1); Total Protein 6.3 gm/dl (6.0-8.3)
--- NOTE | 2024-04-26 07:46 | Urology Progress Note ---
Date of Service April 26, 2024 Assessment & Plan (1) Sepsis: Plan: Feeling much better, although preliminary blood culture was positive for gram- positive cocci. Still awaiting final sensitivity/speciation. Agree with ongoing antibiotics, narrow as culture data becomes available. Will likely need repeat blood cultures. Consider ID consult given gram-positive bacteremia. Urology will follow along. (2) History of prostate biopsy: Plan: Pathology results returned. I reviewed these with the patient, specifically that they did not demonstrate any prostate cancer. We will plan on continuing to monitor PSA. (3) Elevated PSA: Admission and Anticipated Discharge Date Admission Date: April 23, 2024 Subjective Feeling well this morning was a little cold overnight but responded to a blanket No measured fevers Normal WBC this morning (8.07), creatinine 0.76, glucose 106 Urine culture with likely contaminant, blood culture preliminary with gram- positive cocci clusters Physical Exam Physical Exam: Resting in bed, NAD Results & Data Vital Signs (Past 12 Hours) Vital Signs Temp Pulse Pulse Resp BP Pulse Ox O2 Del Method 04/26/24 05:47 69 04/26/24 03:45 36.8 C 73 20 146/68 H 92 Room Air 04/26/24 01:17 73 04/25/24 23:29 36.7 C 73 18 124/74 92 Room Air 04/25/24 20:13 Room Air PG Care Time/CCT Total # of Minutes Spent Total Time Spent with Patient: Total time spent is greater than 50% in coordination of care (as documented) at patient's floor/unit and/or counseling patient: Coding Level of Care Code 02997 SUB INP/OBS CARE 1/25MIN Diagnoses Sepsis A41.9 Sepsis acute organ dysfunction status: unspecified Sepsis type: sepsis due to unspecified organism History of prostate biopsy Z98.890 Elevated PSA R97.20 (1) Sepsis Sepsis acute organ dysfunction status: unspecified Sepsis type: sepsis due to unspecified organism Qualified Code(s): A41.9 - Sepsis, unspecified organism
[2024-04-26 08:23] VITALS: TEMP 97.9
[2024-04-26 11:35] VITALS: RESP 17; O2SAT 95
--- NOTE | 2024-04-26 12:32 | Discharge Summary ---
Discharge Summary Date of Service April 26, 2024 Principal Dx & Hospital Course #1 = Principal Diagnosis (1) Sepsis: Admitted with sepsis of urinary source post transrectal prostate biopsy Significantly improved 04/24/2024. Continue Rocephin Blood cultures with no growth to date, patient was having chills/aches prior to admission. UCx pending Solomon catheter continue due to acute urinary retention. Urology following. Improving may have inpatient voiding trial versus outpatient urology follow-up depending on progression Continue Rocephin/Flagyl at this time Abdominal pain is resolved, abdomen nontender on assessment 04/24 - solomon removal trial - solomon cath removed , urinating , discharge home , follow up with urology (2) History of prostate biopsy: See sepsis plan Urology following (3) Pre-diabetes: Monitor BSG ACHS goal is [id number] Hold metformin Start CF of 50 and CR of 15 ACHS Adjust regimen as needed (4) Paranoid schizophrenia: Currently alert, completely oriented, and without signs of paranoia, hallucinations, or delusions Continue home olanzapine and perphenazine Admission HPI Per Admitting Provider Chung is a 73-year-old male with a past medical history significant for schizophrenia, pre-diabetes, and hyperlipidemia who presented to the [facility] ED via EMS on 04/23/2024 due to fever and confusion after transrectal prostate biopsy this a.m. Per chart review, the patient underwent Transrectal ultrasound-guided biopsy of the prostate with Dr. Arevalo this morning due to elevated PSA level. Per the urology note from this morning, the patient tolerated the procedure well, there were no reported complications, and the patient was discharged home in his normal mental state. On arrival to the ED the patient was noted to be febrile at 39.2 Celsius, tachycardic at 134, tachypneic at 30, and hypoxic at 88% on room air. Labs were significant for a leukocytosis of 13 with neutrophil predominance of 11, anion gap of 12 with bicarb within normal limits, UA shows cloudy urine, 2+ protein, 3+ blood, trace leukocyte esterase, greater than 20 RBC, 1120 WBC, 35 epithelial cells, and negative for bacteria. Chest x-ray was read as negative for acute findings. CT of the abdomen pelvis with IV contrast was read as "There is fat stranding located between the prostate gland/seminal vesicles and rectum with mild anterior rectal wall thickening. This is likely due to the recent postbiopsy changes. A nonspecific prostatitis or proctitis also remains in the differential diagnosis. 2. The bladder is distended. Bladder outlet obstruction is not excluded. 3. No evidence for bowel obstruction. 4. No hydronephrosis. 5. Stable 15 mm cystic lesion within the pancreatic head. This is indeterminate but favors a side branch intraductal papillary mucinous neoplasm or serous cystadenoma. 6. Additional findings as described above.". Prior to admission the patient was given 650 mg p.o. Tylenol, 1 dose ceftriaxone, and 1 L NSS bolus. Patient was lying in bed in no acute distress at the time of the exam, he is currently alert and completely oriented and appears nontoxic. He confirms that he had his prostate biopsy this morning with Dr. Arevalo. States he felt a little "wobbly" after the procedure when discharged home. After arriving home he felt feverish and slightly confused, he called EMS as per recommendations per urology prior to discharge home with his fever and confusion. He currently feels improved compared to ED arrival. States that he had been taking the preoperative ciprofloxacin as prescribed by urology. When asked, he states that when he was having dysuria and hematuria prior to catheter placement in the ED. We discussed CODE STATUS, he is a full code and would want his brother Anton Pereira ([phone]) to make medical decisions for him if he cannot make them himself. I was able to call and speak with the patient's brother to update family of his current condition. They requested an update prior to discharge home so they can assist with discharge planning. Please refer to Dr. Lamas's attestation for any changes to the treatment plan Discharge Exam head atraumatic neck supple chest CTA b/l heart S1S2 regular abdomen soft, NT, ND, BS present extremities no edema neuro AAO times 3 Updated Medication List Medication Instructions Recorded Confirmed Type olanzapine 15 mg tablet 15 mg PO BID 10/16/18 04/23/24 History aspirin 81 mg tablet,delayed 81 mg PO QAM 02/02/19 04/23/24 History release lorazepam 0.5 mg tablet 0.5 mg PO UD 09/25/19 04/23/24 History cholecalciferol (vitamin D3) 50 2,000 unit PO QAM 06/13/20 04/23/24 History mcg (2,000 unit) tablet perphenazine 16 mg tablet 16 mg PO QPM 10/24/20 04/23/24 History atorvastatin 20 mg tablet 20 mg PO QPM #90 tabs 11/29/23 04/23/24 Rx ciprofloxacin HCl 500 mg tablet 500 mg PO Q12H #6 tabs 04/10/24 04/23/24 Rx (Cipro) perphenazine 4 mg tablet 4 mg PO QPM 04/23/24 04/23/24 History ciprofloxacin HCl 500 mg tablet 500 mg PO BID #14 tabs 04/26/24 Rx Hospital Stay Data Consultations 04/23/24 16:23 ED Decision to Admit Stat 04/23/24 17:28 Consult Urology Routine Diagnostic Imagining Performed 04/23/24 14:00 CT Abd and Pelvis [CT abd pelvis IV con only] Stat Pending Results Patient Have Any Pending Studies at Discharge: No Discharge Instructions Given to Patient (Per Discharging Provider) complete antibiotics Home Health Attestation I certify that this patient is under my care and that I, or a physicians assistant spa director working with me, had a face to-face encounter that meets the home health [id number] encounter requirements with this patient. The encounter with the patient was in whole, or in part, for the following medical condition, which is the primary reason for home health care (list medical condition): I certify that, based on my findings, the following services are medically necessary home health services: My clinical findings support the need for the above services because: Further, I certify that my clinical findings support that this patient is homebound (i.e. absences from home require considerable and taxing effort and are for medical reasons or temple services or infrequently or of short duration when for other reasons) because: Certification for Home Health Services: Based on the above findings, I certify that this patient is confined to the home and needs intermittent group home care, physical therapy and/or speech therapy or continues to need occupational therapy. The patient is under my care, and I have initiated the establishment of the plan of care. This patient will be followed by a physician who will periodically review the plan of care. Total Time Total Time Spent Total Time Spent (In Minutes): 45 min Supervising Physician Co-Signing Physician Notes Patient seen and examined, chart reviewed, case discussed with Raul Espinoza PA-C and I agree with the assessment and plan as above except as otherwise noted Labs and images reviewed Chung is a 73-year-old male who presents with fever, hypotension, confusion, tachycardia after a transrectal prostate biopsy. Suspect prostate associated Gram negative urosepsis. BP improved following fluids. Imaging shows fat stranding between prostate gland/seminal vesicles, proctitis within the differential. Agree with admission on Rocephin/Flagyl. Urology consulted. At bedside assessment is nontoxic-appearing. He is seen with his brother present. Had some left lower quadrant abdominal tenderness with no rebound or guarding. No chills/rigors, but feels generally poor. Solomon in place draining pink-tinged urine . Agree with above. Coding Level of Care Code 09940 INP/OBS DISCH >30 MIN Diagnoses Sepsis A41.9 History of prostate biopsy Z98.890 Pre-diabetes R73.03 Paranoid schizophrenia F20.0
[2024-04-26 15:16] VITALS: BP 146/68; PULSE 88
--- NOTE | 2024-04-28 06:32 | Coding Query ---
CODING QUERY To promote full compliance with coding requirements relating to patient care, provider participation is requested in all cases of esthetician/spa coordinator uncertainty. Please assist us with the question(s) below: Coding Question(s): Patient admitted several hours after transrectal prostate biopsy with Sepsis from urinary source. Please document, if known or suspected, the etiology of the urinary source infection. Thanks for your help. Charan Ojeda [facility] Physician's Response(s): Principal Diagnosis: "that condition established after study, to be chiefly responsible for occasioning the admission of the patient to the hospital for care." Co-Existing Principal Diagnosis: "when two or more diagnoses equally meet the criteria for principal diagnosis as determined by the circumstances of admission, diagnostic work up, and/or therapy provided, and the Alphabetic Index, Tabular List, or another coding guideline does not provide sequencing direction, any one of the diagnoses may be sequenced first." "When the physician has documented what appears to be a current diagnosis in the body of the record, but has not included the diagnosis in the final diagnostic statement, the physician should be asked whether the diagnosis should be added." ([facility] 2 QTR90. p3-4) OMARI
== END 2024-04-26 15:55 | disposition home or self-care (01) | DRG 862 ==
LOC: ED 13:51 → SUATTDRO 16:58 → 2N 16:58